=== PATIENT | female | born 1970 | race Caucasian/White ===

== ENCOUNTER 2016-09-17 14:45 | Outpatient (CLI) | payer OTHER ==
[~2016-09-17 14:45] MED LIST: /ADVA50050 INH; /ESOM40CA PO; /VERA12TA PO; ADVA230A INH; ALBU17IN INH; AMIT8CAP PO; BREO1INH IN; CEFD1CAP8 PO; DUONSOL INH; ESTR625TA PO; GABA-282 PO; IPRASOL4 INH; LEVO500T PO; LISI-538 PO; LISI10TA4 PO; LORA10TA2 PO; MELO15TA4 PO; MIRA255PW PO; MONT10TA2 PO; MYLASSUD PO; NEUR300C PO; NEXI20CA PO; OMEP40CA2 PO; PRED10TA2 PO; PRED1TAB32 PO; PRED20TAB PO; PRED5TA PO; PRIN10TA PO; QVAR0.07 IN; SING4GRA PO; SOMA350T PO; SPIR1CAP INH; TIOT18INH INH; TIZA2CAP3 PO; TYLE325T5 PO; VENTAER INH; VERA1TAB10 PO; asmanex INH; bacid PO; levaquin; levaquin PO; prednisone; prednisone PO; singulair; singulair PO
[2016-09-17] MEDS ORDERED: methylPREDNISolone 1,000 MG, VIAL MATE ADAPTER 1 EACH in D5W 250 ML IV ONE (15:00)
[2016-09-17] MEDS ORDERED: INCR1INH IN (16:07)
[2016-09-17] MEDS ORDERED: METF500T13 PO (16:07)
[2016-11-05] MEDS ORDERED: VERA120C3 PO (09:42)
== END 2016-09-17 16:30 | disposition home or self-care (01) ==
LOC: M INFU 14:45
PROVIDERS: ATTEND Psychiatry & Neurology Neurology
DX: G35 Multiple sclerosis (principal); Z88.8 Allergy status to other drugs, medicaments and biological substances; Z88.5 Allergy status to narcotic agent; Z79.899 Other long term (current) drug therapy

== ENCOUNTER 2016-09-18 07:53 | Outpatient (CLI) | payer OTHER ==
[~2016-09-18] VITALS: Ht 162.6 cm; Wt 108.9 kg
[~2016-09-18 07:53] MED LIST changes: +INCR1INH IN; +METF500T13 PO
[2016-09-18] MEDS ORDERED: methylPREDNISolone 1,000 MG, VIAL MATE ADAPTER 1 EACH in D5W 250 ML IV ONE (08:00)
[2016-11-05] MEDS ORDERED: VERA120C3 PO (09:42)
== END 2016-09-18 09:15 | disposition home or self-care (01) ==
LOC: M INFU 07:53
PROVIDERS: ATTEND Psychiatry & Neurology Neurology
DX: G35 Multiple sclerosis (principal); Z88.8 Allergy status to other drugs, medicaments and biological substances; Z88.5 Allergy status to narcotic agent; Z79.899 Other long term (current) drug therapy

== ENCOUNTER 2016-09-19 07:49 | Outpatient (CLI) | payer OTHER ==
[~2016-09-19] VITALS: Ht 162.6 cm; Wt 108.9 kg
[2016-09-19] MEDS ORDERED: methylPREDNISolone 1,000 MG, VIAL MATE ADAPTER 1 EACH in D5W 250 ML IV ONE (08:00)
[2016-11-05] MEDS ORDERED: VERA120C3 PO (09:42)
== END 2016-09-19 09:20 ==
LOC: M INFU 07:49
PROVIDERS: ATTEND Psychiatry & Neurology Neurology
DX: G35 Multiple sclerosis (principal); Z88.8 Allergy status to other drugs, medicaments and biological substances; Z88.5 Allergy status to narcotic agent; Z79.84 Long term (current) use of oral hypoglycemic drugs; Z79.899 Other long term (current) drug therapy

== ENCOUNTER 2016-11-09 11:40 | Day surgery (SDC) | payer OTHER ==
[~2016-11-09] VITALS: Ht 162.6 cm; Wt 107.0 kg
[~2016-11-09 11:40] MED LIST changes: +VERA120C3 PO
[2016-11-09] MEDS ORDERED: LR 1,000 ML IV SCH (12:00)
[2016-11-09] MEDS ORDERED: PROPOFOL 200 MG/20 ML VIAL As Ordered ONE (13:52)
[2016-11-09] MEDS ORDERED: KETOROLAC 60 MG/2 ML VIAL (J1885) As Ordered ONE (13:52)
[2016-11-09] MEDS ORDERED: fentaNYL 100 MCG/2 ML INJECTION (J3010) As Ordered ONE (13:52)
[2016-11-09] MEDS ORDERED: LIDOCAINE 2% INJ 100 MG/5 ML SDV (FOR ANES.) As Ordered ONE (13:52)
[2016-11-09] MEDS ORDERED: dexameTHASONE 4 MG/ML 1ML VIAL (J1100) As Ordered ONE (13:52)
[2016-11-09] MEDS ORDERED: ONDANSETRON 4MG/2ML VIAL (J2405) As Ordered ONE (13:52)
[2016-11-09] MEDS ORDERED: MIDAZOLAM INJ 2 MG/2 ML VIAL (J2250) As Ordered ONE (13:53)
[2016-11-09] MEDS ORDERED: LIDOCAINE 1% SDV INJ 30 ML VIAL As Ordered ONE (14:33)
[2016-11-09] MEDS ORDERED: HEPARIN SOD (PORCINE) 5000 UNITS/ML VIAL As Ordered ONE (14:33)
[2016-11-09] MEDS ORDERED: PHENYLephrine HCL 500 MCG/5 ML (100MCG/ML) SYRINGE (J2370) As Ordered ONE (15:24)
[2016-11-09] MEDS ORDERED: ePHEDrine SULFATE 25 MG/5 ML(5MG/ML) SYRINGE As Ordered ONE (15:24)
[2016-11-09 15:55] VITALS: BP 133/84
--- NOTE | 2016-11-10 06:35 | REP ---
Partial chest x-ray: Two views. History: Need for infusion. 2 seconds of fluoroscopy time is reported. Findings: A sequence of two last image hold fluoroscopic spot radiographs of the chest document catheter position. Signed by Marcelo Guillaume MD 11/10/2016 08:02 A
--- NOTE | 2016-11-10 09:41 | RO ---
DATE OF PROCEDURE: 11/09/2016 PREOPERATIVE DIAGNOSIS: Need for venous access. POSTOPERATIVE DIAGNOSIS: Need for venous access. PROCEDURE: Placement of a right internal jugular vein Bard port Aysady-J-Lcfj. Product code number is [id number] and the lot number is [id number]. SURGEON: Dr. Nick Gold GROUNDS FOREMAN: ANESTHESIA: Monitored anesthesia care with local of 1% Xylocaine with epinephrine. INDICATIONS FOR PROCEDURE: The patient is a 46-year-old woman with a diagnosis of multiple sclerosis who requires a venous access device to allow injections of medication. She has poor peripheral veins. OPERATIVE PROCEDURE: The patient was placed supine on the operating table. The patient's neck and upper chest were prepped and draped in a sterile fashion. She received sedation from anesthesia. The [employer] ultrasound was draped and used to inspect the right side of the neck. The carotid artery and internal jugular vein were both clearly identified. The patient was tilted to a Trendelenburg position to enhance the venous filling. Local anesthesia was infiltrated over the internal jugular vein. An 18 gauge needle was inserted under continuous ultrasound monitoring. Then a small incision was made at the wire insertion site and a peel-away sheath introducer was placed. The catheter was then inserted to approximately 30 cm. The catheter was slowly pulled back to approximately 20 cm. Blood aspirated easily and the catheter was then flushed with heparinized saline. The patient was returned to a flat position. The location of the catheter was inspected using fluoroscopy and the catheter was pulled back to approximately 13 cm at the skin surface with good positioning of the tip of the catheter just above the right atrium. Additional local anesthesia was infiltrated in the infraclavicular fossa. A short transverse incision was made and a subcutaneous pocket was created to receive the port. The catheter was tunneled down to the port site. The catheter was cut to length and attached to the port with the locking ring. The port was placed into the subcutaneous pocket and two sutures of #3-0 Vicryl were placed to suture this to the underlying tissues. The incisions were closed with buried Vicryl sutures. The port was accessed a final time and flushed with 100 units/mL heparin solution. Steri-Strips and small OpSite dressings were applied. The patient tolerated the procedure well. She was allowed to awaken and was transported to advanced recovery in stable condition. [facility]ITALBob
== END 2016-11-09 16:15 | disposition home or self-care (01) ==
LOC: M SDC 11:40
PROVIDERS: ATTEND Surgery
DX: G35 Multiple sclerosis (principal); I10 Essential (primary) hypertension; J45.909 Unspecified asthma, uncomplicated; J44.9 Chronic obstructive pulmonary disease, unspecified; E28.2 Polycystic ovarian syndrome; K59.00 Constipation, unspecified; E11.9 Type 2 diabetes mellitus without complications; K21.9 Gastro-esophageal reflux disease without esophagitis; G47.30 Sleep apnea, unspecified; Z88.1 Allergy status to other antibiotic agents; Z88.5 Allergy status to narcotic agent; Z79.899 Other long term (current) drug therapy; Z79.84 Long term (current) use of oral hypoglycemic drugs; Z90.710 Acquired absence of both cervix and uterus
CPT/HCPCS: 36561; 76000; C1788

== ENCOUNTER 2016-11-15 12:29 | Outpatient (CLI) | payer OTHER ==
[~2016-11-15] VITALS: Ht 162.6 cm; Wt 108.9 kg
[~2016-11-15 12:29] MED LIST changes: +SODIUM CHLORIDE 0.9% INJ 10 ML SYR IV SCH
[2016-11-15] MEDS ORDERED: methylPREDNISolone 1,000 MG, VIAL MATE ADAPTER 1 EACH in D5W 250 ML IV ONE (13:00)
== END 2016-11-15 15:05 | disposition home or self-care (01) ==
LOC: M INFU 12:29
PROVIDERS: ATTEND Psychiatry & Neurology Neurology
DX: G35 Multiple sclerosis (principal); Z88.8 Allergy status to other drugs, medicaments and biological substances; Z88.5 Allergy status to narcotic agent; Z79.899 Other long term (current) drug therapy
CPT/HCPCS: 96365; J2930

== ENCOUNTER 2016-11-29 07:51 | Outpatient (CLI) | payer OTHER ==
[~2016-11-29] VITALS: Ht 162.6 cm; Wt 108.9 kg
[~2016-11-29 07:51] MED LIST changes: -SODIUM CHLORIDE 0.9% INJ 10 ML SYR IV SCH
[2016-11-29] MEDS ORDERED: methylPREDNISolone 1,000 MG, VIAL MATE ADAPTER 1 EACH in D5W 250 ML IV ONE (08:15)
[2016-11-29] MEDS ORDERED: SODIUM CHLORIDE 0.9% INJ 10 ML SYR IV SCH (09:00)
== END 2016-11-29 09:55 | disposition home or self-care (01) ==
LOC: M INFU 07:51
PROVIDERS: ATTEND Psychiatry & Neurology Neurology
DX: G35 Multiple sclerosis (principal); I10 Essential (primary) hypertension; E78.00 Pure hypercholesterolemia, unspecified; K21.9 Gastro-esophageal reflux disease without esophagitis; Z79.84 Long term (current) use of oral hypoglycemic drugs; Z79.899 Other long term (current) drug therapy; Z88.5 Allergy status to narcotic agent
CPT/HCPCS: 96365; J2930

== ENCOUNTER 2016-12-13 14:10 | Outpatient (CLI) | payer OTHER ==
[~2016-12-13] VITALS: Ht 162.6 cm; Wt 108.9 kg
[~2016-12-13 14:10] MED LIST changes: +SODIUM CHLORIDE 0.9% INJ 10 ML SYR IV SCH
[2016-12-13] MEDS ORDERED: methylPREDNISolone 1,000 MG, VIAL MATE ADAPTER 1 EACH in D5W 250 ML IV ONE (15:00)
== END 2016-12-13 16:20 | disposition home or self-care (01) ==
LOC: M INFU 14:10
PROVIDERS: ATTEND Psychiatry & Neurology Neurology
DX: G35 Multiple sclerosis (principal); Z88.8 Allergy status to other drugs, medicaments and biological substances; Z88.5 Allergy status to narcotic agent; Z79.899 Other long term (current) drug therapy
CPT/HCPCS: 96365; J2930

== ENCOUNTER 2016-12-27 13:17 | Outpatient (CLI) | payer OTHER ==
[2016-12-27] MEDS ORDERED: methylPREDNISolone 1,000 MG, VIAL MATE ADAPTER 1 EACH in D5W 250 ML IV ONE (13:45)
== END 2016-12-27 15:20 | disposition home or self-care (01) ==
LOC: M INFU 13:17
PROVIDERS: ATTEND Psychiatry & Neurology Neurology
DX: G35 Multiple sclerosis (principal); I10 Essential (primary) hypertension; E78.00 Pure hypercholesterolemia, unspecified; E11.9 Type 2 diabetes mellitus without complications; K21.9 Gastro-esophageal reflux disease without esophagitis; J45.909 Unspecified asthma, uncomplicated; J44.9 Chronic obstructive pulmonary disease, unspecified; Z79.84 Long term (current) use of oral hypoglycemic drugs; Z79.899 Other long term (current) drug therapy; Z88.5 Allergy status to narcotic agent; Z88.8 Allergy status to other drugs, medicaments and biological substances
CPT/HCPCS: 96365; J2930

== ENCOUNTER 2017-01-17 12:08 | Outpatient (CLI) | payer MEDICAID, OTHER ==
[~2017-01-17] VITALS: Ht 162.6 cm; Wt 108.9 kg
[2017-01-17] MEDS ORDERED: methylPREDNISolone 1,000 MG, VIAL MATE ADAPTER 1 EACH in D5W 250 ML IV ONE (12:30)
== END 2017-01-17 14:15 | disposition home or self-care (01) ==
LOC: M INFU 12:08
PROVIDERS: ATTEND Psychiatry & Neurology Neurology
DX: G35 Multiple sclerosis (principal); Z88.8 Allergy status to other drugs, medicaments and biological substances; Z88.5 Allergy status to narcotic agent; Z79.899 Other long term (current) drug therapy
CPT/HCPCS: 96365; J2930

== ENCOUNTER 2017-01-31 07:33 | Outpatient (CLI) | payer MEDICAID ==
[~2017-01-31] VITALS: Ht 162.6 cm; Wt 108.9 kg
[~2017-01-31 07:33] MED LIST changes: -SODIUM CHLORIDE 0.9% INJ 10 ML SYR IV SCH
[2017-01-31] MEDS ORDERED: methylPREDNISolone 1,000 MG, VIAL MATE ADAPTER 1 EACH in D5W 250 ML IV ONE (08:00)
[2017-01-31] MEDS ORDERED: SODIUM CHLORIDE 0.9% INJ 10 ML SYR IV SCH (09:00)
== END 2017-01-31 09:25 | disposition home or self-care (01) ==
LOC: M INFU 07:33
PROVIDERS: ATTEND Psychiatry & Neurology Neurology
DX: G35 Multiple sclerosis (principal)
CPT/HCPCS: 96365; J2930

== ENCOUNTER 2017-02-14 09:13 | Outpatient (CLI) | payer OTHER, SELFPAY ==
[~2017-02-14] VITALS: Ht 162.6 cm; Wt 108.9 kg
[~2017-02-14 09:13] MED LIST changes: +SODIUM CHLORIDE 0.9% INJ 10 ML SYR IV SCH
[2017-02-14] MEDS ORDERED: methylPREDNISolone 1,000 MG, VIAL MATE ADAPTER 1 EACH in D5W 250 ML IV ONE (10:00)
== END 2017-02-14 10:45 | disposition home or self-care (01) ==
LOC: M INFU 09:13
PROVIDERS: ATTEND Psychiatry & Neurology Neurology
DX: G35 Multiple sclerosis (principal); Z88.8 Allergy status to other drugs, medicaments and biological substances; Z88.5 Allergy status to narcotic agent; Z79.84 Long term (current) use of oral hypoglycemic drugs; Z79.899 Other long term (current) drug therapy
CPT/HCPCS: 96365; J2930

== ENCOUNTER 2017-03-04 13:23 | Outpatient (CLI) | payer OTHER ==
[2017-03-04] MEDS: methylPREDNISolone 1,000 MG, VIAL MATE ADAPTER 1 EACH in D5W 250 ML IV (13:39)
[2017-03-04] MEDS: SODIUM CHLORIDE 0.9% INJ 10 ML SYR IV (14:45)
== END 2017-03-04 14:45 | disposition home or self-care (01) ==
LOC: M INFU 13:23
DX: G35 Multiple sclerosis (principal); Z88.5 Allergy status to narcotic agent; Z88.8 Allergy status to other drugs, medicaments and biological substances; Z79.899 Other long term (current) drug therapy
CPT/HCPCS: 96365

== ENCOUNTER 2017-03-25 06:49 | Outpatient (CLI) | payer OTHER ==
[2017-03-25] MEDS: methylPREDNISolone 1,000 MG, VIAL MATE ADAPTER 1 EACH in D5W 250 ML IV (07:11)
[2017-03-25] MEDS: SODIUM CHLORIDE 0.9% INJ 10 ML SYR IV (08:18)
== END 2017-03-25 08:30 | disposition home or self-care (01) ==
LOC: M INFU 06:49
DX: G35 Multiple sclerosis (principal); Z88.8 Allergy status to other drugs, medicaments and biological substances; Z88.5 Allergy status to narcotic agent; Z79.899 Other long term (current) drug therapy
CPT/HCPCS: 96365

== ENCOUNTER 2017-03-26 09:07 | Outpatient (CLI) | payer OTHER ==
[2017-03-26] MEDS: methylPREDNISolone 1,000 MG, VIAL MATE ADAPTER 1 EACH in D5W 250 ML IV (09:42)
[2017-03-26] MEDS: SODIUM CHLORIDE 0.9% INJ 10 ML SYR IV (11:03)
== END 2017-03-26 11:08 | disposition home or self-care (01) ==
LOC: M INFU 09:07 → M PED 09:13 → M INFU 11:08
DX: G35 Multiple sclerosis (principal); Z88.5 Allergy status to narcotic agent; Z88.8 Allergy status to other drugs, medicaments and biological substances; Z79.899 Other long term (current) drug therapy
CPT/HCPCS: 96365

== ENCOUNTER 2017-03-27 08:06 | Outpatient (CLI) | payer OTHER ==
[2017-03-27] MEDS: methylPREDNISolone 1,000 MG, VIAL MATE ADAPTER 1 EACH in D5W 250 ML IV (08:55)
[2017-03-27] MEDS ORDERED: SODIUM CHLORIDE 0.9% INJ 10 ML SYR IV (09:15)
== END 2017-03-27 10:05 ==
LOC: M INFU 08:06 → M MS4PR 08:10 → M INFU 10:05
DX: G35 Multiple sclerosis (principal); Z79.899 Other long term (current) drug therapy; Z88.8 Allergy status to other drugs, medicaments and biological substances; Z88.5 Allergy status to narcotic agent
CPT/HCPCS: 96365

== ENCOUNTER 2017-04-25 10:24 | Outpatient (CLI) | payer OTHER ==
[2017-04-25] MEDS: methylPREDNISolone 1,000 MG, VIAL MATE ADAPTER 1 EACH in D5W 250 ML IV (10:50)
[2017-04-25] MEDS: SODIUM CHLORIDE 0.9% INJ 10 ML SYR IV (11:48)
== END 2017-04-25 12:15 | disposition home or self-care (01) ==
LOC: M INFU 10:24
DX: G35 Multiple sclerosis (principal); Z79.899 Other long term (current) drug therapy; Z88.8 Allergy status to other drugs, medicaments and biological substances; Z88.5 Allergy status to narcotic agent
CPT/HCPCS: 96365

== ENCOUNTER 2017-05-09 11:51 | Outpatient (CLI) | payer OTHER ==
[2017-05-09] MEDS: SODIUM CHLORIDE 0.9% INJ 10 ML SYR IV (12:04)
[2017-05-09] MEDS: methylPREDNISolone 1,000 MG, VIAL MATE ADAPTER 1 EACH in D5W 250 ML IV (12:04)
== END 2017-05-09 12:35 | disposition home or self-care (01) ==
LOC: M INFU 11:51
DX: G35 Multiple sclerosis (principal); I10 Essential (primary) hypertension; E78.00 Pure hypercholesterolemia, unspecified; J44.9 Chronic obstructive pulmonary disease, unspecified; K21.9 Gastro-esophageal reflux disease without esophagitis; E11.9 Type 2 diabetes mellitus without complications; Z79.899 Other long term (current) drug therapy; Z88.8 Allergy status to other drugs, medicaments and biological substances
CPT/HCPCS: J2930

== ENCOUNTER 2017-05-09 17:27 | Emergency (ER) | payer OTHER ==
[2017-05-09] MEDS: ASPIRIN 81 MG CHEW TABLET PO (18:39)
[2017-05-09] MEDS: ASPIRIN 325 MG TAB PO (19:45)
[2017-05-09 19:53] LABS: BASO % 0.2 % (0.0-1.0); HEMATOCRIT 35.5 % (36.0-47.0); HEMOGLOBIN 11.4 g/dl (12.0-16.0); IMMATURE GRANULOCYTE % 0.3 % (0-3.0); LYMPH # 0.6 10^3/uL (1.5-4.5); LYMPH % 10.2 % (24.0-44.0); MEAN CORPUSCULAR HEMOGLOBIN 27.5 pg (27.0-33.0); MEAN CORPUSCULAR HGB CONC 32.1 g/dl (32.0-36.5); MEAN CORPUSCULAR VOLUME 85.5 fl (80.0-96.0); MONO % 0.5 % (0.0-5.0); NEUTROPHILS # 5.5 10^3/uL (1.8-7.7); NEUTROPHILS % 88.8 % (36.0-66.0); PLATELET COUNT, AUTOMATED 238 10^3/uL (150-450); RED BLOOD COUNT 4.15 10^6/uL (4.00-5.40); RED CELL DISTRIBUTION WIDTH 13.9 % (11.5-14.5); WHITE BLOOD COUNT 6.2 10^3/uL (4.0-10.0)
[2017-05-09] MEDS: KETOROLAC 30 MG/ML VIAL (J1885) IV (19:59)
[2017-05-09] MEDS: ALBUTEROL SULFATE 2.5 MG/0.5 ML INH NEB SOLN NEB (20:10)
[2017-05-09 20:24] LABS: ALBUMIN 3.7 GM/DL (3.2-5.2); ALBUMIN/GLOBULIN RATIO 1.09 (1.00-1.93); ALKALINE PHOSPHATASE 102 U/L (45-117); ALT/SGPT 25 U/L (12-78); ANION GAP 8 MEQ/L (8-16); AST/SGOT 15 U/L (7-37); BILIRUBIN,DIRECT < 0.1 MG/DL (0.0-0.2); BILIRUBIN,TOTAL 0.2 MG/DL (0.2-1.0); BLOOD UREA NITROGEN 8 MG/DL (7-18); CALCIUM LEVEL 8.7 MG/DL (8.5-10.1); CARBON DIOXIDE LEVEL 25 MEQ/L (21-32); CHLORIDE LEVEL 108 MEQ/L (98-107); CPK CREATINE PHOSPHOKINASE 78 U/L (26-192); CREATININE FOR GFR 1.03 MG/DL (0.55-1.30); GLOMERULAR FILTRATION RATE > 60.0 (>58); GLUCOSE, FASTING 220 MG/DL (70-100); LIPASE 239 U/L (73-393); POTASSIUM SERUM 4.6 MEQ/L (3.5-5.1); SODIUM LEVEL 141 MEQ/L (136-145); TOTAL PROTEIN 7.1 GM/DL (6.4-8.2); TROPONIN I < 0.02 NG/ML (< 0.10)
[2017-05-09 20:25] LABS: MB/CK RELATIVE INDEX 1.28 (< OR =4); NT-PRO BNP 22 PG/ML (<125)
[2017-05-09] MEDS ORDERED: ISOVUE-370 76% 100ML VIAL (Q9967) As Ordered (22:24)
[2017-05-09 22:45] LABS: CPK CREATINE PHOSPHOKINASE 71 U/L (26-192); TROPONIN I < 0.02 NG/ML (< 0.10)
== END 2017-05-09 23:53 | disposition home or self-care (01) ==
LOC: M ED 17:27
DX: J44.1 Chronic obstructive pulmonary disease with (acute) exacerbation (principal); R07.89 Other chest pain; E11.9 Type 2 diabetes mellitus without complications; I10 Essential (primary) hypertension; E78.5 Hyperlipidemia, unspecified; G35 Multiple sclerosis; K21.9 Gastro-esophageal reflux disease without esophagitis; J44.9 Chronic obstructive pulmonary disease, unspecified; J45.909 Unspecified asthma, uncomplicated; Z79.899 Other long term (current) drug therapy; Z88.1 Allergy status to other antibiotic agents; Z88.5 Allergy status to narcotic agent; Z88.8 Allergy status to other drugs, medicaments and biological substances
CPT/HCPCS: Q9967

== ENCOUNTER 2017-05-23 16:36 | Outpatient (CLI) | payer OTHER ==
[2017-05-23] MEDS: methylPREDNISolone 1,000 MG, VIAL MATE ADAPTER 1 EACH in D5W 250 ML IV (17:00)
[2017-05-23] MEDS: SODIUM CHLORIDE 0.9% INJ 10 ML SYR IV (17:58)
== END 2017-05-23 18:15 | disposition home or self-care (01) ==
LOC: M INFU 16:36
DX: G35 Multiple sclerosis (principal); I10 Essential (primary) hypertension; E78.00 Pure hypercholesterolemia, unspecified; J45.909 Unspecified asthma, uncomplicated; K21.9 Gastro-esophageal reflux disease without esophagitis; E11.9 Type 2 diabetes mellitus without complications; Z88.8 Allergy status to other drugs, medicaments and biological substances; Z79.84 Long term (current) use of oral hypoglycemic drugs; Z79.899 Other long term (current) drug therapy
CPT/HCPCS: J2930

== ENCOUNTER 2017-06-06 11:02 | Outpatient (CLI) | payer OTHER ==
[2017-06-06] MEDS ORDERED: methylPREDNISolone 1,000 MG, VIAL MATE ADAPTER 1 EACH in D5W 250 ML IV (11:15)
[2017-06-06] MEDS: methylPREDNISolone 500 MG, VIAL MATE ADAPTER 1 EACH in D5W 250 ML IV (12:01)
[2017-06-06] MEDS: SODIUM CHLORIDE 0.9% INJ 10 ML SYR IV (13:03)
== END 2017-06-06 13:15 | disposition home or self-care (01) ==
LOC: M INFU 11:02
DX: G35 Multiple sclerosis (principal); E11.9 Type 2 diabetes mellitus without complications; I10 Essential (primary) hypertension; E78.00 Pure hypercholesterolemia, unspecified; K21.9 Gastro-esophageal reflux disease without esophagitis; J45.909 Unspecified asthma, uncomplicated; Z79.84 Long term (current) use of oral hypoglycemic drugs; Z79.899 Other long term (current) drug therapy; Z88.8 Allergy status to other drugs, medicaments and biological substances
CPT/HCPCS: J2930

== ENCOUNTER 2017-06-23 07:40 | Outpatient (CLI) | payer OTHER ==
[2017-06-23] MEDS: methylPREDNISolone 500 MG, VIAL MATE ADAPTER 1 EACH in D5W 250 ML IV (08:21)
[2017-06-23] MEDS: SODIUM CHLORIDE 0.9% INJ 10 ML SYR IV (08:22)
== END 2017-06-23 09:40 | disposition home or self-care (01) ==
LOC: M INFU 07:40
DX: G35 Multiple sclerosis (principal); E11.9 Type 2 diabetes mellitus without complications; I10 Essential (primary) hypertension; E78.00 Pure hypercholesterolemia, unspecified; J45.909 Unspecified asthma, uncomplicated; K21.9 Gastro-esophageal reflux disease without esophagitis; Z79.84 Long term (current) use of oral hypoglycemic drugs; Z79.899 Other long term (current) drug therapy; Z88.8 Allergy status to other drugs, medicaments and biological substances
CPT/HCPCS: J2930

== ENCOUNTER 2017-07-07 13:04 | Outpatient (CLI) | payer OTHER ==
[2017-07-07] MEDS: methylPREDNISolone 500 MG, VIAL MATE ADAPTER 1 EACH in D5W 250 ML IV (13:37)
[2017-07-07] MEDS: SODIUM CHLORIDE 0.9% INJ 10 ML SYR IV (14:41)
== END 2017-07-07 14:50 | disposition home or self-care (01) ==
LOC: M INFU 13:04
DX: G35 Multiple sclerosis (principal); I10 Essential (primary) hypertension; E78.00 Pure hypercholesterolemia, unspecified; J44.9 Chronic obstructive pulmonary disease, unspecified; K21.9 Gastro-esophageal reflux disease without esophagitis; Z79.4 Long term (current) use of insulin; Z79.899 Other long term (current) drug therapy; Z88.5 Allergy status to narcotic agent; Z88.8 Allergy status to other drugs, medicaments and biological substances
CPT/HCPCS: J2930

== ENCOUNTER 2017-08-25 16:23 | Emergency (ER) | payer OTHER ==
[2017-08-25] MEDS: SODIUM CHLORIDE 0.9% INJ 10 ML SYR IV ×2 (18:00)
[2017-08-25] MEDS ORDERED: SODIUM CHLORIDE 0.9% INJ 10 ML SYR IV ×2 (18:00)
[2017-08-25] MEDS: NS 1,000 ML IV ×2 (19:02)
[2017-08-25] MEDS: methylPREDNISolone INJ 125 MG/2 ML VIAL (J2930) IV ×2 (19:04)
[2017-08-25 19:56] LABS: BASO % 0.1 % (0.0-1.0); HEMATOCRIT 36.9 % (36.0-47.0); HEMOGLOBIN 11.8 g/dl (12.0-15.5); IMMATURE GRANULOCYTE % 0.3 % (0-3.0); LYMPH # 0.8 10^3/uL (1.5-4.5); LYMPH % 9.5 % (24.0-44.0); MEAN CORPUSCULAR VOLUME 84.4 fl (80.0-96.0); MONO % 0.5 % (0.0-5.0); NEUTROPHILS # 7.1 10^3/uL (1.8-7.7); NEUTROPHILS % 89.6 % (36.0-66.0); PLATELET COUNT, AUTOMATED 296 10^3/uL (150-450); RED BLOOD COUNT 4.37 10^6/uL (4.00-5.40); RED CELL DISTRIBUTION WIDTH 14.3 % (11.5-14.5); WHITE BLOOD COUNT 7.9 10^3/uL (4.0-10.0)
[2017-08-25 19:58] LABS: KETONE, URINE AUTO RFX TRACE mg/dL (NEGATIVE); LEUKOCYTE ESTERASE UR AUTO RFX NEGATIVE (NEGATIVE); NITRITE, URINE AUTO RFX NEGATIVE (NEGATIVE); RBC, URINE AUTO RFX 1 /HPF (0-3); SPECIFIC GRAVITY UR AUTO RFX 1.024 (1.002-1.035); SQUAM EPITHELIAL CELL UR AURFX 0 /HPF (0-6); WBC, URINE AUTO RFX 0 /HPF (0-3)
[2017-08-25 20:13] LABS: ANION GAP 10 MEQ/L (8-16); BLOOD UREA NITROGEN 15 MG/DL (7-18); CALCIUM LEVEL 8.7 MG/DL (8.5-10.1); CARBON DIOXIDE LEVEL 25 MEQ/L (21-32); CHLORIDE LEVEL 107 MEQ/L (98-107); CREATININE FOR GFR 1.07 MG/DL (0.55-1.30); GLOMERULAR FILTRATION RATE 58.5 (>58); GLUCOSE, FASTING 194 MG/DL (70-100); POTASSIUM SERUM 4.7 MEQ/L (3.5-5.1); SODIUM LEVEL 142 MEQ/L (136-145); THYROID STIMULATING HORMONE 0.656 uIU/ML (0.358-3.740)
== END 2017-08-25 22:28 | disposition home or self-care (01) ==
LOC: M ED 16:23
DX: G35 Multiple sclerosis (principal); E11.9 Type 2 diabetes mellitus without complications; I10 Essential (primary) hypertension; J45.909 Unspecified asthma, uncomplicated; E28.2 Polycystic ovarian syndrome; K21.9 Gastro-esophageal reflux disease without esophagitis; Z79.84 Long term (current) use of oral hypoglycemic drugs; Z79.899 Other long term (current) drug therapy; Z88.5 Allergy status to narcotic agent; Z88.8 Allergy status to other drugs, medicaments and biological substances; Z86.69 Personal history of other diseases of the nervous system and sense organs; Z98.890 Other specified postprocedural states
CPT/HCPCS: J2930

== ENCOUNTER 2017-09-14 12:12 | Outpatient (CLI) | payer OTHER ==
[2017-09-14] MEDS: methylPREDNISolone 1,000 MG, VIAL MATE ADAPTER 1 EACH in D5W 250 ML IV (12:40)
[2017-09-14] MEDS: SODIUM CHLORIDE 0.9% INJ 10 ML SYR IV (13:45)
== END 2017-09-14 13:45 | disposition home or self-care (01) ==
LOC: M INFU 12:12
DX: G35 Multiple sclerosis (principal); Z88.8 Allergy status to other drugs, medicaments and biological substances; Z88.5 Allergy status to narcotic agent; Z79.899 Other long term (current) drug therapy; Z79.84 Long term (current) use of oral hypoglycemic drugs
CPT/HCPCS: J2930

== ENCOUNTER 2017-10-12 12:28 | Outpatient (CLI) | payer OTHER ==
[2017-10-12] MEDS: methylPREDNISolone 1,000 MG, VIAL MATE ADAPTER 1 EACH in D5W 250 ML IV (12:43)
[2017-10-12] MEDS: SODIUM CHLORIDE 0.9% INJ 10 ML SYR IV (12:44)
== END 2017-10-12 14:15 | disposition home or self-care (01) ==
LOC: M INFU 12:28
DX: G35 Multiple sclerosis (principal); Z88.8 Allergy status to other drugs, medicaments and biological substances; Z88.5 Allergy status to narcotic agent; Z79.899 Other long term (current) drug therapy; Z79.84 Long term (current) use of oral hypoglycemic drugs
CPT/HCPCS: J2930

== ENCOUNTER 2017-10-26 16:35 | Emergency (ER) | payer OTHER ==
[2017-10-26 21:10] LABS: BASO % 0.2 % (0.0-1.0); HEMATOCRIT 35.1 % (36.0-47.0); HEMOGLOBIN 11.3 g/dl (12.0-15.5); IMMATURE GRANULOCYTE % 0.6 % (0-3.0); LYMPH # 0.8 10^3/uL (1.5-4.5); LYMPH % 8.4 % (24.0-44.0); MEAN CORPUSCULAR HEMOGLOBIN 27.6 pg (27.0-33.0); MEAN CORPUSCULAR HGB CONC 32.2 g/dl (32.0-36.5); MEAN CORPUSCULAR VOLUME 85.6 fl (80.0-96.0); MONO # 0.1 10^3/uL (0.0-0.8); MONO % 1.4 % (0.0-5.0); NEUTROPHILS # 8.6 10^3/uL (1.8-7.7); NEUTROPHILS % 89.4 % (36.0-66.0); PLATELET COUNT, AUTOMATED 278 10^3/uL (150-450); RED CELL DISTRIBUTION WIDTH 15.4 % (11.5-14.5); WHITE BLOOD COUNT 9.6 10^3/uL (4.0-10.0)
[2017-10-26 21:22] LABS: BEDSIDE GLUCOSE 151 MG/DL (70-105)
[2017-10-26 21:23] LABS: INR 1.16
[2017-10-26 21:24] LABS: PARTIAL THROMBOPLASTIN TIME 27.1 SECONDS (25.4-37.6)
[2017-10-26 21:31] LABS: ALBUMIN 3.6 GM/DL (3.2-5.2); ALT/SGPT 22 U/L (12-78); ANION GAP 10 MEQ/L (8-16); AST/SGOT 6 U/L (7-37); BILIRUBIN,DIRECT < 0.1 MG/DL (0.0-0.2); BILIRUBIN,TOTAL 0.2 MG/DL (0.2-1.0); BLOOD UREA NITROGEN 15 MG/DL (7-18); CALCIUM LEVEL 9.1 MG/DL (8.5-10.1); CARBON DIOXIDE LEVEL 24 MEQ/L (21-32); CHLORIDE LEVEL 108 MEQ/L (98-107); CPK CREATINE PHOSPHOKINASE 36 U/L (26-192); CREATININE FOR GFR 0.94 MG/DL (0.55-1.30); GLOMERULAR FILTRATION RATE > 60.0 (>58); GLUCOSE, FASTING 150 MG/DL (70-100); PHOSPHORUS LEVEL 2.8 MG/DL (2.5-4.9); POTASSIUM SERUM 4.3 MEQ/L (3.5-5.1); SODIUM LEVEL 142 MEQ/L (136-145); TOTAL PROTEIN 7.2 GM/DL (6.4-8.2); TROPONIN I < 0.02 NG/ML (< 0.10)
[2017-10-26 21:37] LABS: ALKALINE PHOSPHATASE 107 U/L (45-117); CK-MB VALUE MASS < 1.0 NG/ML (<3.6); MB/CK RELATIVE INDEX 2.77 (< OR =4); NT-PRO BNP 25 PG/ML (<125); THYROID STIMULATING HORMONE 0.343 uIU/ML (0.358-3.740)
[2017-10-26] MEDS ORDERED: methylPREDNISolone INJ 125 MG/2 ML VIAL (J2930) IV (22:00)
[2017-10-26] MEDS: methylPREDNISolone 1,000 MG, VIAL MATE ADAPTER 1 EACH in D5W 250 ML IV (22:22)
== END 2017-10-26 23:50 | disposition home or self-care (01) ==
LOC: M ED 16:35
DX: I26.99 Other pulmonary embolism without acute cor pulmonale (principal); R53.1 Weakness; J44.9 Chronic obstructive pulmonary disease, unspecified; E11.9 Type 2 diabetes mellitus without complications; I10 Essential (primary) hypertension; G35 Multiple sclerosis; K21.9 Gastro-esophageal reflux disease without esophagitis; G47.33 Obstructive sleep apnea (adult) (pediatric); E28.2 Polycystic ovarian syndrome; E78.9 Disorder of lipoprotein metabolism, unspecified; Z79.899 Other long term (current) drug therapy; Z79.84 Long term (current) use of oral hypoglycemic drugs; Z79.01 Long term (current) use of anticoagulants; Z88.5 Allergy status to narcotic agent; Z88.8 Allergy status to other drugs, medicaments and biological substances
CPT/HCPCS: J2930

== ENCOUNTER 2017-12-08 11:17 | Outpatient (CLI) | payer OTHER ==
[2017-12-08] MEDS: SODIUM CHLORIDE 0.9% INJ 10 ML SYR IV (09:00)
[2017-12-08] MEDS: methylPREDNISolone 1,000 MG, VIAL MATE ADAPTER 1 EACH in D5W 250 ML IV (12:30)
== END 2017-12-08 13:45 | disposition home or self-care (01) ==
LOC: M INFU 11:17
DX: G35 Multiple sclerosis (principal)
CPT/HCPCS: J2930

== ENCOUNTER 2017-12-22 12:42 | Outpatient (CLI) | payer OTHER ==
[2017-12-22] MEDS: methylPREDNISolone 1,000 MG, VIAL MATE ADAPTER 1 EACH in D5W 250 ML IV (13:05)
== END 2017-12-22 14:30 | disposition home or self-care (01) ==
LOC: M INFU 12:42
DX: G35 Multiple sclerosis (principal)
CPT/HCPCS: J2930

== ENCOUNTER 2017-12-28 16:03 | Emergency (ER) | payer OTHER ==
[2017-12-28] MEDS: ACETAMINOPHEN 325 MG TAB PO (19:30)
[2017-12-28] MEDS: predniSONE 20 MG TAB PO (19:30)
[2017-12-28] MEDS: NORCO 5/325MG TABLET (BULK FOR ED) PO (20:11)
== END 2017-12-28 20:21 | disposition home or self-care (01) ==
LOC: M ED 16:03
DX: M54.17 Radiculopathy, lumbosacral region (principal); G89.29 Other chronic pain; M54.5 Low back pain; E11.9 Type 2 diabetes mellitus without complications; I10 Essential (primary) hypertension; E78.5 Hyperlipidemia, unspecified; J44.9 Chronic obstructive pulmonary disease, unspecified; Z79.4 Long term (current) use of insulin; Z79.899 Other long term (current) drug therapy; Z88.5 Allergy status to narcotic agent; Z88.8 Allergy status to other drugs, medicaments and biological substances
CPT/HCPCS: 99283

== ENCOUNTER 2018-02-06 06:36 | Outpatient (CLI) | payer OTHER ==
[2018-02-06] MEDS: methylPREDNISolone 1,000 MG, VIAL MATE ADAPTER 1 EACH in D5W 250 ML IV (06:51)
[2018-02-06] MEDS: SODIUM CHLORIDE 0.9% INJ 10 ML SYR IV (07:55)
== END 2018-02-06 08:00 | disposition home or self-care (01) ==
LOC: M INFU 06:36
DX: G35 Multiple sclerosis (principal)
CPT/HCPCS: J2930

== ENCOUNTER 2018-02-20 07:36 | Outpatient (CLI) | payer OTHER ==
[~2018-02-20] VITALS: Ht 162.6 cm; Wt 110.0 kg
[~2018-02-20 07:36] MED LIST changes: +ATOR1TAB19 PO; -GABA-282 PO; +GABA-843 PO; +GLIP5TAB8 PO; +IPRA0.00 INH; -IPRASOL4 INH; +KETO10TAB PO; +LEVA1TAB2 PO; +LORA-243 PO; -LORA10TA2 PO; +MELO15TA28 PO; -MELO15TA4 PO; +METH50VL IV; +NORCOTAB PO; +NOVALOG; -QVAR0.07 IN; +QVAR40AE13 IN; -SODIUM CHLORIDE 0.9% INJ 10 ML SYR IV SCH; +TIZA2CAP PO; -TIZA2CAP3 PO; +XARE15TA PO
[2018-02-20 07:40] VITALS: BP 115/65
[2018-02-20] MEDS ORDERED: methylPREDNISolone 1,000 MG, VIAL MATE ADAPTER 1 EACH in D5W 250 ML IV ONE (08:00)
[2018-02-20] MEDS ORDERED: SODIUM CHLORIDE 0.9% INJ 10 ML SYR IV SCH (09:00)
[2018-02-20 09:10] VITALS: BP 127/63
== END 2018-02-20 09:10 | disposition home or self-care (01) ==
LOC: M INFU 07:36
PROVIDERS: ATTEND Psychiatry & Neurology Neurology
DX: G35 Multiple sclerosis (principal)
CPT/HCPCS: 96365; J2930

== ENCOUNTER 2018-04-05 08:34 | Outpatient (CLI) | payer OTHER ==
[~2018-04-05] VITALS: Ht 162.6 cm; Wt 110.0 kg
[2018-04-05 08:41] VITALS: BP 135/80
[2018-04-05] MEDS ORDERED: SODIUM CHLORIDE 0.9% INJ 10 ML SYR IV SCH (09:00)
[2018-04-05] MEDS ORDERED: methylPREDNISolone 1,000 MG, VIAL MATE ADAPTER 1 EACH in D5W 250 ML IV ONE (09:00)
[2018-04-05 10:09] VITALS: BP 146/81
== END 2018-04-05 10:15 | disposition home or self-care (01) ==
LOC: M INFU 08:34
PROVIDERS: ATTEND Psychiatry & Neurology Neurology
DX: G35 Multiple sclerosis (principal)
CPT/HCPCS: 96365; J2930

== ENCOUNTER 2018-06-28 12:09 | Outpatient (CLI) | payer OTHER ==
[~2018-06-28] VITALS: Ht 160 cm; Wt 115.0 kg
[~2018-06-28 12:09] MED LIST changes: -/ADVA50050 INH; -/ESOM40CA PO; +ADVA1AER2 INH; +HYDR-3715 PO; -MIRA255PW PO; +NEXI1CAP3 PO; -NORCOTAB PO; +OXYCOD/APAP; +POLY1POW4 PO; +SODIUM CHLORIDE 0.9% INJ 10 ML SYR IV SCH; +VERA120T4 PO; -VERA1TAB10 PO
[2018-06-28 12:30] VITALS: BP 125/59
[2018-06-28] MEDS ORDERED: methylPREDNISolone 1,000 MG, VIAL MATE ADAPTER 1 EACH in D5W 250 ML IV ONE (12:45)
[2018-06-28 14:00] VITALS: BP 119/58
== END 2018-06-28 14:00 | disposition home or self-care (01) ==
LOC: M INFU 12:09
PROVIDERS: ATTEND Psychiatry & Neurology Neurology
DX: G35 Multiple sclerosis (principal)
CPT/HCPCS: 96365; J2930

== ENCOUNTER 2018-08-23 12:47 | Outpatient (CLI) | payer OTHER ==
[~2018-08-23] VITALS: Ht 160 cm; Wt 115.0 kg
[2018-08-23 13:54] VITALS: BP 94/51
[2018-08-23] MEDS ORDERED: methylPREDNISolone 1,000 MG, VIAL MATE ADAPTER 1 EACH in D5W 250 ML IV ONE (14:00)
== END 2018-08-23 14:20 | disposition home or self-care (01) ==
LOC: M INFU 12:47
PROVIDERS: ATTEND Psychiatry & Neurology Neurology
DX: G35 Multiple sclerosis (principal)
CPT/HCPCS: 96365; J2930

== ENCOUNTER 2018-09-13 09:54 | Outpatient (CLI) | payer OTHER ==
[~2018-09-13] VITALS: Ht 160 cm; Wt 115.0 kg
[~2018-09-13 09:54] MED LIST changes: -OMEP40CA2 PO; +OMEP40CA97 PO
[2018-09-13 10:02] VITALS: BP 139/77
[2018-09-13] MEDS ORDERED: methylPREDNISolone 1,000 MG, VIAL MATE ADAPTER 1 EACH in D5W 250 ML IV ONE (10:30)
[2018-09-13 11:35] VITALS: BP 151/82
== END 2018-09-13 11:35 | disposition home or self-care (01) ==
LOC: M INFU 09:54
PROVIDERS: ATTEND Psychiatry & Neurology Neurology
DX: G35 Multiple sclerosis (principal)
CPT/HCPCS: 96365; J2930

== ENCOUNTER 2019-01-24 08:55 | Outpatient (CLI) | payer OTHER ==
[2019-01-24] VITALS (7 sets, daily range): BP systolic 119–147; BP diastolic 68–88
[~2019-01-24] VITALS: Ht 160 cm; Wt 115.0 kg
[~2019-01-24 08:55] MED LIST changes: -SODIUM CHLORIDE 0.9% INJ 10 ML SYR IV SCH
[2019-01-24] MEDS ORDERED: methylPREDNISolone INJ 125 MG/2 ML VIAL (J2930) IV ONE (09:15)
[2019-01-24] MEDS ORDERED: SODIUM CHLORIDE 0.9% INJ 10 ML SYR IV PRN (09:15)
[2019-01-24] MEDS ORDERED: diphenhydrAMINE 25 MG CAP PO ONE (09:15)
[2019-01-24] MEDS ORDERED: ACETAMINOPHEN TAB 650MG DOSE (2X325MG) PO ONE (09:15)
[2019-01-24] MEDS ORDERED: 0.22 MICRON FILTER (METHACHOLINE/OCREVUS) XX ONE (09:15)
[2019-01-24] MEDS ORDERED: OCRELIZUMAB 300 MG in NS 250 ML IV ONE (09:30)
[2019-01-24] MEDS ORDERED: SODIUM CHLORIDE 0.9% INJ 10 ML SYR IV SCH (18:00)
== END 2019-01-24 12:45 | disposition home or self-care (01) ==
LOC: M INFU 08:55
PROVIDERS: ATTEND Psychiatry & Neurology Neurology
DX: G35 Multiple sclerosis (principal)
CPT/HCPCS: 96365; 96366; 96375; J2350; J2930

== ENCOUNTER → 2019-01-30 | Outpatient (REF) | payer OTHER ==
[2019-01-30 14:10] LABS: BASO # 0.1 10^3/uL (0.0-0.2); BASO % 0.7 % (0.0-1.0); EOS % 0.4 % (0.0-3.0); HEMATOCRIT 40.6 % (36.0-47.0); HEMOGLOBIN 12.3 g/dl (12.0-15.5); LYMPH # 2.5 10^3/uL (1.5-5.0); LYMPH % 22.3 % (24.0-44.0); MEAN CORPUSCULAR HEMOGLOBIN 26.5 pg (27.0-33.0); MEAN CORPUSCULAR HGB CONC 30.3 g/dl (32.0-36.5); MEAN CORPUSCULAR VOLUME 87.3 fl (80.0-96.0); MONO # 1.1 10^3/uL (0.0-0.8); MONO % 9.5 % (0.0-5.0); NEUTROPHILS # 7.6 10^3/uL (1.5-8.5); NEUTROPHILS % 66.7 % (36.0-66.0); PLATELET COUNT, AUTOMATED 305 10^3/uL (150-450); RED BLOOD COUNT 4.65 10^6/uL (4.00-5.40); WHITE BLOOD COUNT 11.3 10^3/uL (4.0-10.0)
[2019-01-30 14:27] LABS: ALBUMIN 3.7 GM/DL (3.2-5.2); ALT/SGPT 25 U/L (12-78); BILIRUBIN,TOTAL 0.4 MG/DL (0.2-1.0); BLOOD UREA NITROGEN 13 MG/DL (7-18); CALCIUM LEVEL 9.1 MG/DL (8.5-10.1); CARBON DIOXIDE LEVEL 30 MEQ/L (21-32); CHLORIDE LEVEL 106 MEQ/L (98-107); CREATININE FOR GFR 0.85 MG/DL (0.55-1.30); GLOMERULAR FILTRATION RATE > 60.0 (>58); GLUCOSE, FASTING 91 MG/DL (70-100); POTASSIUM SERUM 4.4 MEQ/L (3.5-5.1); SODIUM LEVEL 142 MEQ/L (136-145)
== END ==
LOC: M LABNEURO 11:56
PROVIDERS: ATTEND Psychiatry & Neurology Neurology
DX: B19.10 Unspecified viral hepatitis B without hepatic coma (principal)

== ENCOUNTER 2019-02-14 09:11 | Outpatient (CLI) | payer OTHER ==
[~2019-02-14] VITALS: Ht 160 cm; Wt 115.0 kg
[~2019-02-14 09:11] MED LIST changes: +SODIUM CHLORIDE 0.9% INJ 10 ML SYR IV SCH
[2019-02-14 09:15] VITALS: BP 129/56
[2019-02-14] MEDS ORDERED: diphenhydrAMINE 25 MG CAP PO ONE (09:30)
[2019-02-14] MEDS ORDERED: methylPREDNISolone INJ 125 MG/2 ML VIAL (J2930) IV ONE (09:30)
[2019-02-14] MEDS ORDERED: OCRELIZUMAB 300 MG in NS 250 ML IV ONE (09:30)
[2019-02-14] MEDS ORDERED: ACETAMINOPHEN TAB 650MG DOSE (2X325MG) PO ONE (09:30)
[2019-02-14 10:25] VITALS: BP 117/60
[2019-02-14 10:55] VITALS: BP 130/60
[2019-02-14 11:25] VITALS: BP 122/58
[2019-02-14 11:55] VITALS: BP 130/63
[2019-02-14 12:25] VITALS: BP 132/82
== END 2019-02-14 13:00 | disposition home or self-care (01) ==
LOC: M INFU 09:11
PROVIDERS: ATTEND Psychiatry & Neurology Neurology
DX: G35 Multiple sclerosis (principal); Z88.5 Allergy status to narcotic agent; Z88.8 Allergy status to other drugs, medicaments and biological substances
CPT/HCPCS: 96413; 96415; J2350; J2930

== ENCOUNTER 2019-05-29 05:37 | Day surgery (SDC) | payer OTHER ==
[~2019-05-29] VITALS: Ht 162.6 cm; Wt 112.9 kg
[~2019-05-29 05:37] MED LIST changes: -BREO1INH IN; +BREO1INH INH; +FERR1TAB8 PO; -INCR1INH IN; +INCR1INH INH; +INSUH10VL SC; -MONT10TA2 PO; +MONT10TA4 PO; +OXYC1TAB15 PO; -SODIUM CHLORIDE 0.9% INJ 10 ML SYR IV SCH
[2019-05-29] MEDS ORDERED: LIDOCAINE 1% MDV 20ML VIAL SQ PRN (06:00)
[2019-05-29] MEDS ORDERED: ceFAZolin SOD 2 GM in IV 1 EA IV ONE (06:00)
[2019-05-29] MEDS ORDERED: LR 1,000 ML IV SCH ×3 (06:00→11:00)
[2019-05-29] MEDS ORDERED: VANCOMYCIN HCL 1,000 MG, VIAL MATE ADAPTER 1 EACH in D5W 250 ML IV ONE (06:00)
[2019-05-29] MEDS ORDERED: LIDOCAINE 2% INJ 100 MG/5 ML SDV (FOR ANES.) As Ordered ONE (06:56)
[2019-05-29] MEDS ORDERED: fentaNYL 100 MCG/2 ML INJECTION (J3010) As Ordered ONE (06:56)
[2019-05-29] MEDS ORDERED: ONDANSETRON 4MG/2ML VIAL (J2405) As Ordered ONE (06:56)
[2019-05-29] MEDS ORDERED: propofoL 500 MG/50 ML VIAL As Ordered ONE ×2 (06:56→08:51)
[2019-05-29] MEDS ORDERED: KETOROLAC 60 MG/2 ML VIAL (J1885) As Ordered ONE (06:56)
[2019-05-29] MEDS ORDERED: dexameTHASONE 4 MG/ML 1ML VIAL (J1100) As Ordered ONE (06:56)
[2019-05-29] MEDS ORDERED: MIDAZOLAM INJ 2 MG/2 ML VIAL (J2250) As Ordered ONE (06:56)
[2019-05-29] MEDS ORDERED: HEPARIN SOD (PORCINE) 5000 UNITS/ML VIAL (J1644 PER 1000UNITS) As Ordered ONE (07:03)
[2019-05-29] MEDS ORDERED: LIDOCAINE 1% SDV INJ 30 ML VIAL As Ordered ONE (07:03)
[2019-05-29] MEDS ORDERED: PHENYLephrine HCL 500 MCG/5 ML (100MCG/ML) SYRINGE (J2370) As Ordered ONE (09:11)
--- NOTE | 2019-05-29 09:58 | REP ---
Clinical: Status post Dsqptz-I-Tmul placement. Technique: Intraoperative fluoroscopic imaging using portable C-arm technique. Findings: Final images demonstrate Fmttdf-S-Jobm overlying the right upper thorax via right internal jugular approach with catheter tip extending into the SVC/right atrium. Total fluoroscopic time 70 seconds. Impression: Satisfactory Jnbpla-K-Bswk placement. Electronically Signed by Anton Almanzar MD 05/29/2019 09:50 A
[2019-05-29] MEDS ORDERED: fentaNYL 100 MCG/2 ML INJECTION (J3010) IV PRN (11:00)
[2019-05-29] MEDS ORDERED: PERCOCET 5MG/325MG TAB PO PRN (11:00)
[2019-05-29] MEDS ORDERED: ONDANSETRON 4MG/2ML VIAL (J2405) IV PRN (11:00)
[2019-05-29 11:45] VITALS: BP 114/57
--- NOTE | 2019-05-29 17:45 | ECGEPIP ---
[facility] Test Date: 2019-05-29 Pat Name: DESIREE ATKINSON Department: Room: - Gender: Female Bilingual Office Assistant: ADWOA : 1970 Requested By: ETHAN Werner Order Number: [id number] Reading MD: Conor Treviño Measurements Intervals [place] Rate: 90 P: 59 VA: 178 QRS: 30 QRSD: 87 T: 30 QT: 365 QTc: 449 Interpretive Statements SINUS RHYTHM SIMILAR TO 06/05/2018 Electronically Signed on 05-29-2019 17:44:48 EDT by Conor Treviño
--- NOTE | 2019-05-29 19:43 | RO ---
DATE OF PROCEDURE: 05/29/2019 PREOPERATIVE DIAGNOSIS: Need for intravenous access for ongoing medications. POSTOPERATIVE DIAGNOSIS: Need for intravenous access for ongoing medications. PROCEDURE PERFORMED: Implantation of a right internal jugular vein Pdgkjq-C-Gfsc using ultrasound and fluoroscopic guidance. SURGEON: Nick Gold MD FOOD PRODUCTION MANAGER: ANESTHESIA: Local with 1% Xylocaine with monitored anesthesia care. IMPLANTS: The port inserted was a Bard port Fjeaxj-F-Ajpd, reference code [id number] and lot number [id number]. INDICATIONS FOR PROCEDURE Patient is a 48-year-old woman with a history of multiple sclerosis. She is now on a periodic intravenous medication. She has poor peripheral venous access and has relied on an Gtoxgk-W-Jmvd previously. This had recently become infected and was removed. She is now for placement of a new Wonerw-Z-Dbxj. OPERATIVE PROCEDURE The patient was brought to the operating room and placed on the table in a supine position. She received sedation from anesthesia. The patient's neck and upper chest were prepped and draped in a sterile fashion. The ultrasound probe was draped and the right neck was inspected. She was placed into a slight Trendelenburg position. She had an excellent size internal jugular vein with good respiratory variation incised. The artery was also noted. Local anesthesia was achieved with 1% Xylocaine. Using ultrasound guidance the 18-gauge needle was inserted into the vein without difficulty. There was excellent return of blood. The guidewire was passed. With the guidewire in place, the patient was returned to a flat position and fluoroscopy confirmed the positioning of the wire in the right side of the heart. The patient was then returned to a slight Trendelenburg position. The skin was nicked at the wire insertion site and the peel-away sheath was passed. The Ylpkri-V-Oxnm catheter was inserted through the peel-away sheath and the sheath was removed. Blood aspirated readily from the catheter and this was then flushed with heparinized saline. The catheter was withdrawn to approximately 15 cm of the skin surface. Again with fluoroscopic inspection, the insertion depth of the catheter was adjusted to approximately the 12 cm arelis at the skin surface in the neck. A site for the skin incision was marked in the right upper chest. An approximately 3-3-1/2 cm transverse incision was made and a subcutaneous pocket was created. The catheter was tunneled down to the port site after infiltrating the overlying skin with some additional 1% Xylocaine. Hemostasis was ensured in the port pocket. The catheter was then cut to length and attached to the port using the locking ring. The port was flushed with 100 units/cc heparin solution. A final fluoroscopic image confirmed that the catheter tip was nicely into the region of the junction of the superior vena cava and the right atrium. There was no evidence of kinking of the catheter. The port pocket was closed with some buried sutures of #3-0 Vicryl and a running subcuticular suture of #5-0 Vicryl. The neck incision was closed with two simple buried sutures of #5-0 Vicryl. Steri-Strips were applied to both incisions followed by small OpSite dressings. The patient tolerated the procedure well without apparent complication. She was awakened in the operating room and transported to advanced recovery in stable condition.
== END 2019-05-29 11:55 | disposition home or self-care (01) ==
LOC: M SDC 05:37
PROVIDERS: ATTEND Surgery
DX: G35 Multiple sclerosis (principal); E11.9 Type 2 diabetes mellitus without complications; Z79.4 Long term (current) use of insulin; I10 Essential (primary) hypertension; G47.30 Sleep apnea, unspecified; J44.9 Chronic obstructive pulmonary disease, unspecified; Z88.5 Allergy status to narcotic agent; Z88.1 Allergy status to other antibiotic agents; Z88.8 Allergy status to other drugs, medicaments and biological substances; Z79.899 Other long term (current) drug therapy
CPT/HCPCS: 36561; 76000; 93005; C1788; J1100; J1642; J1644; J1885; J2250; J2370; J2405; J3010; J3370

== ENCOUNTER → 2019-12-13 | Outpatient (CLI) | payer OTHER ==
[~2019-12-13] MED LIST changes: +D 101000 PO; +METH1TAB40 PO; +OXYC1TAB15; +PRIM50TA6 PO; +VITA50005
== END ==
LOC: M LABSMTC 09:16
PROVIDERS: ATTEND Anesthesiology
DX: Z01.812 Encounter for preprocedural laboratory examination (principal); Z20.828 Contact with and (suspected) exposure to other viral communicable diseases
CPT/HCPCS: C9803; U0003

== ENCOUNTER 2019-12-18 11:27 | Day surgery (SDC) | payer OTHER ==
[~2019-12-18] VITALS: Ht 162.6 cm; Wt 115.8 kg
[~2019-12-18 11:27] MED LIST changes: +LR 1,000 ML IV ONE; +ceFAZolin SOD 2 GM in IV 1 EA IV ONE
[2019-12-18] MEDS ORDERED: propofoL 200 MG/20 ML VIAL As Ordered ONE (11:58)
[2019-12-18] MEDS ORDERED: fentaNYL 100 MCG/2 ML INJECTION (J3010) As Ordered ONE ×2 (11:59→14:36)
[2019-12-18] MEDS ORDERED: MIDAZOLAM INJ 2MG/2ML VIAL (J2250 PER 1MG) As Ordered ONE (11:59)
[2019-12-18] MEDS ORDERED: LIDOCAINE 2% 100MG/5ML SDV (FOR ANES.) As Ordered ONE (12:02)
[2019-12-18] MEDS ORDERED: LIDOCAINE 1% SDV 30ML VIAL As Ordered ONE (12:40)
[2019-12-18] MEDS ORDERED: propofoL 500 MG/50 ML VIAL As Ordered ONE (13:36)
--- NOTE | 2019-12-18 15:55 | REPVR ---
PROCEDURE INFORMATION: Exam: XR Chest, 1 View Exam date and time: 12/18/2019 3:42 PM Age: 49 years old Clinical indication: Device placement; Other: Status post Infusaport placement TECHNIQUE: Imaging protocol: XR of the chest Views: 1 view. COMPARISON: CR Chest, 2 view PA, Lat 10/26/2017 7:57 PM FINDINGS: Tubes, catheters and devices: Right chest ported venous catheter is present with its catheter tip terminating at the brachiocephalic vein confluence. A portion of the catheter at the right lower neck is not imaged. Lungs: No pulmonary consolidation or edema. Pleural space: No evident pleural effusion. No evident pneumothorax. Heart/Mediastinum: Heart size is within normal limits given the portable technique. Vasculature: Mildly tortuous thoracic aorta. Bones/joints: No acute osseous abnormality. IMPRESSION: Right chest ported venous catheter is present with its catheter tip terminating at the brachiocephalic vein confluence. No evident pneumothorax. Electronically signed by: Severiano Richardson On 12/18/2019 15:55:44 PM
[2019-12-18] MEDS ORDERED: ACETAMINOPHEN TAB 650MG DOSE (2X325MG) As Ordered ONE (16:03)
[2019-12-18 16:10] VITALS: BP 132/85
[2019-12-18] MEDS ORDERED: ACETAMINOPHEN TAB 650MG DOSE (2X325MG) PO PRN (16:15)
--- NOTE | 2019-12-19 10:56 | RO ---
DATE OF OPERATION: 12/18/2019 PREOPERATIVE DIAGNOSIS: Malpositioned Ytibx-t-aour port. POSTOPERATIVE DIAGNOSIS: Malpositioned Oausz-e-fvie port. PROCEDURE: Exploration and repositioning of Yjlnk-x-gbwi port. SURGEON: Nick Gold MD DE ICER: ANESTHESIA: Monitored anesthesia care with local of 1% Xylocaine. INDICATIONS FOR PROCEDURE: Patient is a 49-year-old woman with a right internal jugular vein Sdylv-g-xmgj which is required for intermittent use for management of medical problems with intravenous medications. She has poor peripheral access and the port was placed several months ago. Unfortunately, the port shifted slightly and is now tilted such that access is uncomfortable and difficult for the visiting nurses. She is now for exploration of the port site and repositioning of the port to try to make access easier. DESCRIPTION OF PROCEDURE: The patient was brought to the operating room and placed on the table in a supine position. She received sedation form anesthesia. The right breast was taped down, pulling this somewhat inferiorly to better expose the site of the port. The patient's right upper chest and the base of the neck were prepped and draped in a sterile fashion. There were three roughly parallel, slightly overlapping scars evident on the patient's right infraclavicular fossa. The port was palpable just inferior to the lowest transverse scar. There was a tilt of the port identified. The catheter was palpable extending up across the clavicle consistent with an internal jugular placement. 1% Xylocaine was infiltrated along the medial of the three transverse scars. This appeared to lie slightly above the location of the current port. An approximately 5 cm transverse incision was made through this area and deepened into the subcutaneous tissues. At the lateral aspect of this incision, the locking hub of the catheter to the port was identified and this was freed circumferentially. The beginning of the catheter was identified and the sheath of scar tissue around the catheter was slightly opened with care to avoid injuring the catheter. The capsule that had formed around the port was then opened completely freeing the port for repositioning. The dissection was then carried medially beneath the medial two-thirds of the incision. A pocket was created in the subcutaneous tissues. Some scarring in the overlying skin was excised to thin the skin so that this would form better around the port. Once the port had been freed from the capsule, the port was moved slightly medial into the subcutaneous pocket that had been created. This appeared to give a flat surface and also moved the port slightly further up the chest wall and medially where the subcutaneous tissues were thinner. The pocket that had been opened was then closed with some buried 3-0 chromic sutures to approximate these tissues and obliterate the space. The port was sutured to the underlying subcutaneous fibrofatty tissues with several sutures of 3-0 Vicryl. The skin edges were then brought into apposition with some buried 3-0 Vicryl and the wound itself was closed with a running subcuticular suture of 5-0 Vicryl. Care had been taken to achieve excellent hemostasis prior to closing the wound. The port was accessed with a Smith needle and flushed with approximately 8 mL of 100 units/cc of heparin solution. The catheter flushed easily. Steri-Strips and a light dressing were then applied. The patient tolerated the procedure well without apparent complication. She was awakened in the operating room and transported to advanced recovery in stable condition. TWAN
== END 2019-12-18 16:45 | disposition home or self-care (01) ==
LOC: M SDC 11:27
PROVIDERS: ATTEND Surgery
DX: T82.524A Displacement of infusion catheter, initial encounter (principal); I10 Essential (primary) hypertension; E11.9 Type 2 diabetes mellitus without complications; K21.9 Gastro-esophageal reflux disease without esophagitis; D64.9 Anemia, unspecified; G35 Multiple sclerosis; M79.7 Fibromyalgia; J44.9 Chronic obstructive pulmonary disease, unspecified; Z79.4 Long term (current) use of insulin; Z86.711 Personal history of pulmonary embolism; Z79.899 Other long term (current) drug therapy; G47.30 Sleep apnea, unspecified
CPT/HCPCS: 36576; 71045; J0690; J1642; J2250; J3010

== ENCOUNTER 2020-02-26 07:55 | Outpatient (CLI) | payer OTHER ==
[~2020-02-26] VITALS: Ht 162.6 cm; Wt 114.3 kg
[2020-02-26] VITALS (7 sets, daily range): BP systolic 127–137; BP diastolic 65–87
[~2020-02-26 07:55] MED LIST changes: -LR 1,000 ML IV ONE; -MONT10TA4 PO; +MONT5TAB2 PO; -ceFAZolin SOD 2 GM in IV 1 EA IV ONE
[2020-02-26] MEDS ORDERED: diphenhydrAMINE 25MG CAP PO ONE (08:00)
[2020-02-26] MEDS ORDERED: methylPREDNISolone 125MG 2ML VIAL IV ONE (08:00)
[2020-02-26] MEDS ORDERED: ACETAMINOPHEN TAB 650MG DOSE (2X325MG) PO ONE (08:00)
[2020-02-26] MEDS ORDERED: OCRELIZUMAB 600 MG in NS 500 ML IV ONE (08:00)
[2020-02-26] MEDS ORDERED: SODIUM CHLORIDE 0.9% INJ 10 ML SYR IV PRN (08:45)
[2020-02-26] MEDS ORDERED: SODIUM CHLORIDE 0.9% INJ 10 ML SYR IV SCH (09:00)
== END 2020-02-26 12:30 | disposition home or self-care (01) ==
LOC: M INFU 07:55
PROVIDERS: ATTEND Psychiatry & Neurology Neurology
DX: G35 Multiple sclerosis (principal); Z88.6 Allergy status to analgesic agent; Z88.8 Allergy status to other drugs, medicaments and biological substances
CPT/HCPCS: 96365; 96366; 96375; J1642; J2350; J2930

== ENCOUNTER 2020-05-31 20:30 | Inpatient (IN) | payer OTHER ==
[~2020-05-31] VITALS: Ht 162.6 cm; Wt 114.3 kg
[~2020-05-31 20:30] MED LIST changes: +GABA-282 PO; -GABA-843 PO; -LISI-538 PO; +LISI10TA22 PO; -LISI10TA4 PO; +LISI20TA33 PO; +METH-1164 PO; -METH1TAB40 PO; +MONT10TA10 PO; -MONT5TAB2 PO; -OXYC1TAB15; -VITA50005; +VITA50005 PO
[2020-05-31] MEDS ORDERED: HumaLOG INSULIN (NovoLOG) PER UNIT SC SCH (21:00)
[2020-05-31 22:10] VITALS: BP 180/80
[2020-05-31 22:15] VITALS: BP 120/80
[2020-05-31] MEDS ORDERED: ACETAMINOPHEN TAB 650MG DOSE (2X325MG) PO PRN (23:00)
[2020-05-31] MEDS ORDERED: GLUCOSE 4GM CHEW TABLET PO PRN (23:15)
[2020-05-31] MEDS ORDERED: GLUCAGON INJ 1MG VIAL SC PRN (23:15)
[2020-05-31] MEDS ORDERED: PANTOPRAZOLE 40MG VIAL (C9113 PER 1) IV SCH (23:15)
[2020-05-31] MEDS ORDERED: DEXTROSE 50% 50 ML SYRINGE IV PRN (23:15)
[2020-05-31] MEDS ORDERED: TRUL10IN SC (23:27)
[2020-05-31] MEDS ORDERED: GABA800T4 PO (23:27)
--- NOTE | 2020-05-31 23:37 | IPNPDOC ---
Text Note Date of Service The patient was seen on 05/31/20. NOTE time of service 1025pm is a 49 yr old w DM & MS that has been well controlled on Ocrevis for about 2 yrs. She presented to [facility] w c/o BLE weakness and paresthesias; her ROS was negative. Dr. Zuniga discussed the case with Dr. Clemente who recommended starting steroids and transfer for MRI. Rest per 's H&P VS,Fishbone, I+O VS, Fishbone, I+O Vital Signs Date Time Temp Pulse Resp B/P (MAP) Pulse Ox O2 Delivery O2 Flow Rate FiO2 05/31/20 22:10 98.2 73 18 180/80 (113) 96 Room Air GENESIS MONTES MD May 31, 2020 23:37
[2020-05-31] MEDS ORDERED: SODIUM CHLORIDE 0.9% INJ 10 ML SYR IV PRN (23:45)
--- NOTE | 2020-05-31 23:53 | HPEPDOC ---
General Date of Admission May 31, 2020 at 22:12 Date of Service: May 31, [address] Stallings Attending Physician: GENESIS MONTES MD Chief Complaint weakness History of Present Illness This is a 49-year-old female who was transferred to [facility] from [facility] where she presented with bilateral leg weakness and numbness for the past week. She states that shes experienced headaches as pounding in nature for about a day and then subsided. She states that she has been feeling a burning sensation in her tailbone since last week. When asked if she has any bowel or urinary incontinence. She denies. She also denies loss of feeling in the perianal region. She denies any numbness and tingling down to the back of her legs. Denies CP, sob, abd pain, fever, chills, n/v/d. ROS: 12 point ROS negative except as listed in HPI Past medical/surgical history Multiple sclerosis Asthma Hypertension. PCOS Hyperlipidemia. Fibromyalgia. Anxiety. Bilateral cataract surgery March 2020 Left rotator cuff repair April 2020 Cholecystectomy Tonsillectomy. Tubal ligation. Hysterectomy. Social history: , 3 children. Denies any alcohol or illicit drug use. Never smoker Family history: Brother with hydrocephalus with parents with CAD / Father with asthma / Half-sister diagnosed with Graves disease PHYSICAL EXAM: VS: see below General: Female in no acute distress, answering questions appropriately, davey like facies, cushingid appearance HEENT: Anicteric. Tongue midline. Pupils equal, round, react to light bilaterally accommodating appropriately. 4. Home appreciated Neck no adenopathy, no thyromegaly appreciated. Pulmonary: No wheezing, rhonchi or rales appreciated. Cardio normal S1, S2, no murmur, gallops or rubs appreciated. Abdomen soft, obese, nontender, nondistended. No guarding on palpation. Normal bowel sounds throughout. Extremities: no edema bilateral lower extremities 2+ pedal pulses bilaterally. No cyanosis or clubbing Neuro: Rapid alternating movements within normal limits. Cranial nerves II-XII were preserved bilaterally. sensation intact throughout . Strength 5 out of 5 throughout IMAGING: From [facility] on 05/31/20 faxed to [facility]. CT scan of head without contrast was performed which shows no evidence of acute intracranial pathology, multiple view abdominal series with PA chest did not show any evidence of acute consolidation or CHF; some bibasilar subsegmental ate lectasis XR chest: no acute findings see details from [employer] faxed report Assessment and plan This is a 49-year-old with history of multiple sclerosis with remitting relapsing episodes have required previous admissions, hypertension, polycystic ovarian syndrome, asthma, admitted anterior hospitalist service for further management for what seems like an acute exacerbation of her multiple sclerosis #Exacerbation of multiple sclerosis - Will order for IV Solu-Medrol 500 daily - For MRI without contrast to evaluate for disease progression - pain control with home percocet - will add tylenol q4h PRN for pain as well - Continue home gabapentin - A.m team to consider neurology consultation if needed (Pt follows with Dr. Stallings) - Nothing by mouth except for meds. - Speech and swallow evaluation #coccyx paresthesia - Although clinical suspicion for cauda equina syndrome is low- will order for Coccyx xray- pending - pt denies any bowel or bladder symptoms - Am team consider MRI of lumbar sacral region as needed #Chronic Asthma -Continue home meds #Essential HTN -will continue home meds #HLD -c/w home statin #class 3 obesity -complicates care DVT prophylaxis. Heparin CODE STATUS full Home Medications Scheduled Atorvastatin Calcium (Atorvastatin Calcium) 10 Mg Tab, 10 MG PO DAILY, (Reported) Dulaglutide (Trulicity) 0.75 Mg/0.5 Ml Pen.injctr, 0.75 MG SC QWEEK, (Reported) tuesday Ergocalciferol (Vitamin D2) (Vitamin D2) 50,000 Units Cap, 50,000 MG PO QWEEK, (Reported) tuesday Gabapentin (Gabapentin) 800 Mg Tablet, 800 MG PO TID, (Reported) Lisinopril (Lisinopril) 20 Mg Tab, 20 MG PO DAILY, (Reported) Methocarbamol (Methocarbamol) 500 Mg Tablet, 500 MG PO BID, (Reported) Montelukast Sodium (Montelukast Sodium) 10 Mg Tablet, 10 MG PO DAILY, (Reported) Omeprazole (Omeprazole) 40 Mg Cap, 40 MG PO BID, (Reported) Primidone (Primidone) 50 Mg Tablet, 50 MG PO BID, (Reported) Verapamil HCl (Verapamil Sr) 120 Mg Cap, 120 MG PO DAILY, (Reported) Scheduled PRN Oxycodone HCl/Acetaminophen (Oxycodon-Acetaminophen 7.5-325) 1 Each Tablet, 1 TAB PO DAILY PRN for PAIN, (Reported) Allergies Coded Allergies: baclofen (Verified Allergy, Unknown, 12/07/19) fluticasone (Verified Allergy, Unknown, 12/07/19) morphine (Verified Allergy, Unknown, 12/07/19) A-FIB/CHADSVASC A-FIB History Current/History of A-Fib/PAF?: No Current PO Anticoag Therapy: No Vital Signs Vital Signs Date Time Temp Pulse Resp B/P (MAP) Pulse Ox O2 Delivery O2 Flow Rate FiO2 05/31/20 22:10 98.2 73 18 180/80 (113) 96 Room Air Laboratory Data Labs 24H Laboratory Tests 2 05/31/20 23:40: CBC/BMP Plan / VTE VTE Prophylaxis Ordered?: Yes Nelida Aquino DO May 31, 2020 23:53 GENESIS MONTES MD Jun 04, 2020 06:28
[2020-06-01 00:13] LABS: BLOOD UREA NITROGEN 13 MG/DL (7-18); CALCIUM LEVEL 8.5 MG/DL (8.5-10.1); CARBON DIOXIDE LEVEL 27 MEQ/L (21-32); CHLORIDE LEVEL 107 MEQ/L (98-107); GLOMERULAR FILTRATION RATE > 60.0 (>51); GLUCOSE, FASTING 172 MG/DL (70-100); POTASSIUM SERUM 4.4 MEQ/L (3.5-5.1); SODIUM LEVEL 140 MEQ/L (136-145)
[2020-06-01 00:17] LABS: HEMATOCRIT 41.3 % (36.0-47.0); HEMOGLOBIN 13.4 g/dl (12.0-15.5); MEAN CORPUSCULAR HGB CONC 32.4 g/dl (32.0-36.5); MEAN CORPUSCULAR VOLUME 92.6 fl (80.0-96.0); PLATELET COUNT, AUTOMATED 264 10^3/uL (150-450); RED BLOOD COUNT 4.46 10^6/uL (4.00-5.40); WHITE BLOOD COUNT 9.8 10^3/uL (4.0-10.0)
[2020-06-01] MEDS: methocarbamoL 500 MG TAB PO SCH ×3 (01:06→20:20)
[2020-06-01] MEDS: OMEPRAZOLE 20 MG CAP PO SCH ×3 (01:07→20:20)
[2020-06-01] MEDS: PRIMIDONE 50 MG TAB PO SCH ×3 (01:07→20:20)
[2020-06-01] MEDS: GABAPENTIN 400MG CAP PO SCH ×4 (01:07→20:20)
[2020-06-01] MEDS: HumaLOG INSULIN (NovoLOG) PER UNIT SC SCH ×5 (01:08→21:00)
[2020-06-01] MEDS: HEPARIN SOD (PORCINE) 5000UNITS/ML 1ML VIAL/SYRINGE SC SCH ×5 (05:22→22:00)
[2020-06-01 06:00] VITALS: BP 124/72
[2020-06-01 06:27] LABS: HEMATOCRIT 42.2 % (36.0-47.0); HEMOGLOBIN 13.8 g/dl (12.0-15.5); MEAN CORPUSCULAR HEMOGLOBIN 29.9 pg (27.0-33.0); MEAN CORPUSCULAR HGB CONC 32.7 g/dl (32.0-36.5); MEAN CORPUSCULAR VOLUME 91.3 fl (80.0-96.0); PLATELET COUNT, AUTOMATED 295 10^3/uL (150-450); RED BLOOD COUNT 4.62 10^6/uL (4.00-5.40); WHITE BLOOD COUNT 8.1 10^3/uL (4.0-10.0)
[2020-06-01 06:46] LABS: BLOOD UREA NITROGEN 13 MG/DL (7-18); CALCIUM LEVEL 9.2 MG/DL (8.5-10.1); CARBON DIOXIDE LEVEL 21 MEQ/L (21-32); CHLORIDE LEVEL 108 MEQ/L (98-107); CREATININE FOR GFR 0.84 MG/DL (0.55-1.30); GLOMERULAR FILTRATION RATE > 60.0 (>51); GLUCOSE, FASTING 171 MG/DL (70-100); POTASSIUM SERUM 4.5 MEQ/L (3.5-5.1); SODIUM LEVEL 135 MEQ/L (136-145)
[2020-06-01] MEDS ORDERED: HumaLOG INSULIN (NovoLOG) PER UNIT SC SCH ×2 (07:30→21:00)
--- NOTE | 2020-06-01 08:41 | REP ---
INDICATION: MS, hx asthma. COMPARISON: Comparison portable exam is from December 18, 2019. TECHNIQUE: Portable upright AP chest radiograph. FINDINGS: The lungs are well inflated and free of infiltrate. Pleural angles are sharp. Heart size is normal. Pulmonary vasculature is not increased. There is a right-sided Ndmvqf-X-Ipfb catheter with its tip in the expected location of the superior vena cava again noted. Mild degenerative changes are seen in the thoracic spine. IMPRESSION: No active disease. <Electronically signed by Bradley Guillaume > 06/01/20 [id number]
[2020-06-01] MEDS ORDERED: methylPREDNISolone 125MG 2ML VIAL IV SCH ×2 (09:00)
[2020-06-01] MEDS ORDERED: methylPREDNISolone 1,000 MG, VIAL MATE ADAPTER 1 EACH in NS 250 ML IV SCH (09:00)
--- NOTE | 2020-06-01 09:08 | REP ---
INDICATION: burning in tailbone. COMPARISON: Comparison pelvis radiograph May 23, 2019.. TECHNIQUE: Three views of the sacrum and coccyx are presented. FINDINGS: Lateral view shows no evidence of sacral or coccygeal fracture or displacement. Presacral and post sacral soft tissues are unremarkable. The visualized bowel gas pattern is normal. There are postoperative sutures noted bilaterally in the pelvis unchanged. Mild degenerative narrowing of the L4-5 disc space is noted. SI joints are intact. No sacral lesion is seen. IMPRESSION: Negative views of the sacrum and pelvis. Mild degenerative disc disease at L4-5 in the lumbar spine. <Electronically signed by Bradley Guillaume > 06/01/20 [id number]
[2020-06-01] MEDS: ATORVASTATIN 10 MG TAB PO SCH (09:53)
[2020-06-01] MEDS: MONTELUKAST 10 MG TAB PO SCH (09:53)
[2020-06-01] MEDS: SODIUM CHLORIDE 0.9% INJ 10 ML SYR IV SCH (09:54)
[2020-06-01] MEDS: VERAPAMIL 120 MG SR TAB PO SCH (10:00)
[2020-06-01] MEDS: PERCOCET 5MG/325MG TAB PO PRN (10:53)
[2020-06-01] MEDS ORDERED: PROHANCE 279.3MG/ML 15ML VIAL As Ordered ONE (11:57)
[2020-06-01] MEDS ORDERED: PROHANCE 279.3MG/ML 5ML VIAL As Ordered ONE (11:57)
--- NOTE | 2020-06-01 13:03 | REPVR ---
PROCEDURE INFORMATION: Exam: MR Head Without and With Contrast Exam date and time: 06/01/2020 12:34 PM Age: 49 years old Clinical indication: Multiple sclerosis. TECHNIQUE: Imaging protocol: MR of the head without and with intravenous contrast. Contrast material: PROHANCE; Contrast volume: 20 ml; Contrast route: INTRAVENOUS (IV); COMPARISON: MRI-Brain W/O FOLL BY WITH 07/03/2014 12:59 PM FINDINGS: Brain: There are scattered foci of high signal abnormality within the periventricular white matter, meza radiata, and centrum semiovale consistent with demyelinating plaques in this patient with known multiple sclerosis, similar to prior study. There is no abnormal enhancement. There is an old right cerebellar infarct. Cerebral ventricles: Normal. No ventriculomegaly. Bones/joints: Unremarkable. Paranasal sinuses: Normal as visualized. No acute sinusitis. Mastoid air cells: Normal as visualized. No mastoid effusion. Orbital cavity: Unremarkable. Soft tissues: Unremarkable. IMPRESSION: 1. There are scattered foci of high signal abnormality within the periventricular white matter, meza radiata, and centrum semiovale consistent with demyelinating plaques in this patient with known multiple sclerosis, similar to prior study. There is no abnormal enhancement. 2. There is an old right cerebellar infarct. Electronically signed by: Andres Larson On 06/01/2020 13:03:06 PM
--- NOTE | 2020-06-01 13:28 | REPVR ---
PROCEDURE INFORMATION: Exam: MR Thoracic Spine Without and With Contrast Exam date and time: 06/01/2020 12:34 PM Age: 49 years old Clinical indication: Condition or disease; Patient HX: HX of ms with weakness and falls the past few days. PT receives ocrevus infusions but has not had one in a few months. ; Additional info: Without followed by with TECHNIQUE: Imaging protocol: Multiplanar magnetic resonance images of the thoracic spine without and with contrast. Contrast material: PROHANCE; Contrast volume: 20 ml; Contrast route: INTRAVENOUS (IV); COMPARISON: No relevant prior studies available. FINDINGS: Vertebrae: There is no abnormal enhancement. Spinal cord: Normal signal. No cord compression. Discs/Spinal canal/Neural foramina: There is a left paracentral T7/8 disc herniation that indents the ventral thecal sac and causes mild spinal canal stenosis. Soft tissues: Unremarkable. IMPRESSION: There is a left paracentral T7/8 disc herniation that indents the ventral thecal sac and causes mild spinal canal stenosis. No cord signal abnormality. There is no abnormal enhancement. Electronically signed by: Andres Larson On 06/01/2020 13:28:49 PM
[2020-06-01 14:00] VITALS: BP 110/60
[2020-06-01] MEDS ORDERED: BISACODYL 10 MG SUPP PR ONE (14:00)
[2020-06-01] MEDS ORDERED: FLEET ENEMA PR PRN (14:05)
[2020-06-01] MEDS: SENOKOT S TAB PO SCH (20:20)
[2020-06-01] MEDS: BISACODYL 10 MG SUPP PR SCH (20:21)
[2020-06-01 22:00] VITALS: BP 119/58
[2020-06-02] MEDS: HEPARIN SOD (PORCINE) 5000UNITS/ML 1ML VIAL/SYRINGE SC SCH ×3 (05:32→20:28)
[2020-06-02 06:00] VITALS: BP 112/56
[2020-06-02] MEDS: HumaLOG INSULIN (NovoLOG) PER UNIT SC SCH ×4 (07:27→20:28)
[2020-06-02] MEDS ORDERED: HumaLOG INSULIN (NovoLOG) PER UNIT SC SCH (07:30)
[2020-06-02] MEDS: SENOKOT S TAB PO SCH ×2 (09:00→20:27)
[2020-06-02] MEDS: BISACODYL 10 MG SUPP PR SCH ×2 (09:00→20:30)
[2020-06-02] MEDS: ATORVASTATIN 10 MG TAB PO SCH (09:16)
[2020-06-02] MEDS: methocarbamoL 500 MG TAB PO SCH ×2 (09:17→20:27)
[2020-06-02] MEDS: VERAPAMIL 120 MG SR TAB PO SCH (09:17)
[2020-06-02] MEDS: MONTELUKAST 10 MG TAB PO SCH (09:17)
[2020-06-02] MEDS: OMEPRAZOLE 20 MG CAP PO SCH ×2 (09:17→20:27)
[2020-06-02] MEDS: PRIMIDONE 50 MG TAB PO SCH ×2 (09:17→20:28)
[2020-06-02] MEDS: GABAPENTIN 400MG CAP PO SCH ×3 (09:17→20:27)
[2020-06-02] MEDS: SODIUM CHLORIDE 0.9% INJ 10 ML SYR IV SCH (09:18)
--- NOTE | 2020-06-02 13:18 | IPNPDOC ---
Text Note Date of Service The patient was seen on 06/02/20. NOTE Patient was seen and examined this morning. No acute overnight events. The patient states that she feels a little better today. PHYSICAL EXAM: General: Female in no acute distress. HEENT: Anicteric. Tongue midline. Pupils equal, round, react to light bilateral ly accommodating appropriately Neck: no adenopathy, no thyromegaly appreciated. Pulmonary: No wheezing, rhonchi or rales appreciated. Cardio: normal S1, S2, no murmur, gallops or rubs appreciated. Abdomen: soft, obese, nontender, nondistended. No guarding on palpation. Normal bowel sounds throughout. Extremities: no edema bilateral lower extremities 2+ pedal pulses bilaterally. No cyanosis or clubbing Neuro: Rapid alternating movements within normal limits. Cranial nerves II-XII were preserved bilaterally. sensation intact throughout . Strength 5 out of 5 throughout IMAGING: From [facility] on 05/31/20 faxed to [facility]. CT scan of head without contrast was performed which shows no evidence of acute intracranial pathology, multiple view abdominal series with PA chest did not show any evidence of acute consolidation or CHF; some bibasilar subsegmental atelectasis MRI at [facility]. Demyelinating plaques but stable from the previous exam. Assessment and plan This is a 49-year-old female with the past medical history significant for multiple sclerosis diagnosed in the , asthma, hypertension, PCOS , who presents to [facility] as a direct transfer from [facility]. In [facility], she was given a dose of Solu-Medrol thousand milligrams, CT scan of head without contrast was performed which shows no evidence of acute intracranial pathology, multiple view abdominal series with PA chest did not show any evidence of acute consolidation or CHF; patient stated that shes had bilateral leg weakness and numbness. She states that she has been feeling a burning sensation in her tailbone since last week. . She has been admitted to hospitalist service for further management for what seems like an acute exacerbation of her multiple sclerosis 1. Exacerbation of multiple sclerosis: She got 1000 milligrams, methyl prednisone. MRI of the head was done to look at the progression which seems to be stable at this time. Continue gabapentin. ARU screen. As her symptomatology is improving now. For the MRIs will be done. She will require to follow with outpatient neurology. ARDS screen has been requested as the patient might benefit from rehabilitation. Continue home medications. 2. Asthma. Stable. Continue home meds. 3. HTN-will continue home meds 4. HLD-c/w home statin DVT prophylaxis. Heparin Disposition depending upon ARDS screen and evaluation by PT, OT. VS,Fishbone, I+O VS, Fishbone, I+O Vital Signs Date Time Temp Pulse Resp B/P (MAP) Pulse Ox O2 Delivery O2 Flow Rate FiO2 06/02/20 09:17 120/70 06/02/20 06:00 97.5 78 17 94 Room Air I&O- Last 24 Hours up to 6 AM 06/02/20 05:59 Intake Total 955 ml Output Total 400 ml Balance 555 ml RAMESH DAVID MD Jun 02, 2020 13:18
[2020-06-02 14:00] VITALS: BP 132/75
[2020-06-02 22:00] VITALS: BP 100/57
[2020-06-03] MEDS: HEPARIN SOD (PORCINE) 5000UNITS/ML 1ML VIAL/SYRINGE SC SCH ×2 (05:33→05:37)
[2020-06-03 06:00] VITALS: BP 112/63
[2020-06-03 06:10] LABS: HEMATOCRIT 38.2 % (36.0-47.0); HEMOGLOBIN 12.2 g/dl (12.0-15.5); MEAN CORPUSCULAR HEMOGLOBIN 29.8 pg (27.0-33.0); MEAN CORPUSCULAR HGB CONC 31.9 g/dl (32.0-36.5); MEAN CORPUSCULAR VOLUME 93.2 fl (80.0-96.0); PLATELET COUNT, AUTOMATED 237 10^3/uL (150-450); WHITE BLOOD COUNT 7.1 10^3/uL (4.0-10.0)
[2020-06-03 06:37] LABS: BLOOD UREA NITROGEN 13 MG/DL (7-18); CALCIUM LEVEL 8.3 MG/DL (8.5-10.1); CARBON DIOXIDE LEVEL 32 MEQ/L (21-32); CHLORIDE LEVEL 106 MEQ/L (98-107); CREATININE FOR GFR 0.83 MG/DL (0.55-1.30); GLOMERULAR FILTRATION RATE > 60.0 (>51); GLUCOSE, FASTING 89 MG/DL (70-100); POTASSIUM SERUM 4.3 MEQ/L (3.5-5.1); SODIUM LEVEL 140 MEQ/L (136-145)
[2020-06-03] MEDS: HumaLOG INSULIN (NovoLOG) PER UNIT SC SCH ×2 (07:30→12:00)
[2020-06-03 09:00] VITALS: BP 120/80
[2020-06-03] MEDS: GABAPENTIN 400MG CAP PO SCH (09:00)
[2020-06-03] MEDS: ATORVASTATIN 10 MG TAB PO SCH (09:00)
[2020-06-03] MEDS: MONTELUKAST 10 MG TAB PO SCH (09:00)
[2020-06-03] MEDS: BISACODYL 10 MG SUPP PR SCH (09:00)
[2020-06-03] MEDS: methocarbamoL 500 MG TAB PO SCH (09:00)
[2020-06-03] MEDS: VERAPAMIL 120 MG SR TAB PO SCH (09:00)
[2020-06-03] MEDS: PERCOCET 5MG/325MG TAB PO PRN (09:00)
[2020-06-03] MEDS: OMEPRAZOLE 20 MG CAP PO SCH (09:01)
[2020-06-03] MEDS: SODIUM CHLORIDE 0.9% INJ 10 ML SYR IV SCH (09:01)
[2020-06-03] MEDS: PRIMIDONE 50 MG TAB PO SCH (09:01)
[2020-06-03] MEDS: SENOKOT S TAB PO SCH (09:01)
--- NOTE | 2020-06-03 11:20 | DS.PDOC ---
Discharge Summary General Date of Admission May 31, 2020 at 22:12 Date of Discharge 06/03/20 Discharge Summary Chief complaints Weakness Final diagnosis Exacerbation of multiple sclerosis History of present illness and Hospital course This is a 49-year-old female with the past medical history significant for multiple sclerosis diagnosed in the , asthma, hypertension, PCOS , who presents to [facility] as a direct transfer from [facility]. In [facility], she was given a dose of Solu-Medrol thousand milligrams, CT scan of head without contrast was performed which shows no evidence of acute intracranial pathology, multiple view abdominal series with PA chest did not show any evidence of acute consolidation or CHF; patient stated that shes had bilateral leg weakness and numbness. She states that she has been feeling a burning sensation in her tailbone since last week. . She has been admitted to hospitalist service for further management for what seems like an acute exacerbation of her multiple sclerosis. For her Exacerbation of multiple sclerosis: She got 1000 milligrams, methyl prednisone. MRI of the head was done to look at the progression which seems to be stable at this time. Continue gabapentin. ARU screen was also done, but the patient wants to go home. As her symptomatology improved and she is on her baseline. For the MRIs will be done. She will require to follow with outpatient neurology. Will continue on home meds and she'll be going home with home PT and a follow-up with neurology in 2 weeks. PHYSICAL EXAM: General: Female in no acute distress. HEENT: Anicteric. Tongue midline. Pupils equal, round, react to light bilaterally accommodating appropriately Neck: no adenopathy, no thyromegaly appreciated. Pulmonary: No wheezing, rhonchi or rales appreciated. Cardio: normal S1, S2, no murmur, gallops or rubs appreciated. Abdomen: soft, obese, nontender, nondistended. No guarding on palpation. Normal bowel sounds throughout. Extremities: no edema bilateral lower extremities 2+ pedal pulses bilaterally. No cyanosis or clubbing Neuro: Rapid alternating movements within normal limits. Cranial nerves II-XII were preserved bilaterally. sensation intact throughout . Strength 5 out of 5 throughout upper and lower extremities IMAGING: From [facility] on 05/31/20 faxed to [facility]. CT scan of head without contrast was performed which shows no evidence of acute intracranial pathology, multiple view abdominal series with PA chest did not show any evidence of acute consolidation or CHF; some bibasilar subsegmental atelectasis MRI at [facility]. Demyelinating plaques but stable from the previous exam. Medictations. As per discharge reconciliation medication list Activity as tolerated Diet. 2 g sodium diet Follow-up appointments. PCP in 1 week. Neurology in 2 weeks Condition on discharge. Patient is medically optimized for discharge Discharge disposition: Home Total time spent on this discharge including coordination of care, review of chart documentation and actual patient contact is around 35 minutes Vital Signs/I&Os Vital Signs Date Time Temp Pulse Resp B/P (MAP) Pulse Ox O2 Delivery O2 Flow Rate FiO2 06/03/20 09:30 17 Room Air 06/03/20 09:00 88 120/80 06/03/20 06:00 97.1 93 I&O- Last 24 Hours up to 6 AM 06/03/20 06:00 Intake Total 1950 ml Output Total 1250 ml Balance 700 ml Laboratory Data Labs 24H Laboratory Tests 2 06/02/20 11:21: Bedside Glucose (Misc Panel) 96 06/02/20 16:55: Bedside Glucose (Misc Panel) 78 06/02/20 20:13: Bedside Glucose (Misc Panel) 108H 06/03/20 05:34: Nucleated Red Blood Cells % (auto) 0.0, Anion Gap 2L, Glomerular Filtration Rate > 60.0, Calcium Level 8.3L CBC/BMP Laboratory Tests 06/03/20 05:34 FSBS Laboratory Tests Test 06/02/20 11:21 06/02/20 16:55 06/02/20 20:13 Range/Units Bedside Glucose (Misc Panel) 96 78 108 70-105 MG/DL Discharge Medications Scheduled Atorvastatin Calcium (Atorvastatin Calcium) 10 Mg Tab, 10 MG PO DAILY, (Reported) Dulaglutide (Trulicity) 0.75 Mg/0.5 Ml Pen.injctr, 0.75 MG SC QWEEK, (Reported) tuesday Ergocalciferol (Vitamin D2) (Vitamin D2) 50,000 Units Cap, 50,000 MG PO QWEEK, (Reported) tuesday Gabapentin (Gabapentin) 800 Mg Tablet, 800 MG PO TID, (Reported) Lisinopril (Lisinopril) 20 Mg Tab, 20 MG PO DAILY, (Reported) Methocarbamol (Methocarbamol) 500 Mg Tablet, 500 MG PO BID, (Reported) Montelukast Sodium (Montelukast Sodium) 10 Mg Tablet, 10 MG PO DAILY, (Reported) Omeprazole (Omeprazole) 40 Mg Cap, 40 MG PO BID, (Reported) Primidone (Primidone) 50 Mg Tablet, 50 MG PO BID, (Reported) Verapamil HCl (Verapamil Sr) 120 Mg Cap, 120 MG PO DAILY, (Reported) Scheduled PRN Oxycodone HCl/Acetaminophen (Oxycodon-Acetaminophen 7.5-325) 1 Each Tablet, 1 TAB PO DAILY PRN for PAIN, (Reported) Allergies Coded Allergies: baclofen (Verified Allergy, Unknown, 12/07/19) fluticasone (Verified Allergy, Unknown, 12/07/19) morphine (Verified Allergy, Unknown, 12/07/19) RAMESH DAVID MD Jun 03, 2020 11:20
== END 2020-06-03 13:23 | disposition home health service (06) | DRG 43 ==
LOC: M MSPAV 22:12
PROVIDERS: ADMIT Internal Medicine; ATTEND Internal Medicine
DX: G35 Multiple sclerosis (principal); I10 Essential (primary) hypertension; J45.909 Unspecified asthma, uncomplicated; E78.5 Hyperlipidemia, unspecified; E66.9 Obesity, unspecified; M53.3 Sacrococcygeal disorders, not elsewhere classified; E11.9 Type 2 diabetes mellitus without complications; Z79.899 Other long term (current) drug therapy; Z88.6 Allergy status to analgesic agent; Z88.8 Allergy status to other drugs, medicaments and biological substances; Z68.41 Body mass index [BMI] 40.0-44.9, adult

== ENCOUNTER 2020-06-05 15:59 | Inpatient (IN) | payer OTHER ==
[~2020-06-05] VITALS: Ht 162.6 cm; Wt 115.9 kg
[~2020-06-05 15:59] MED LIST changes: +GABA800T4 PO; +TRUL10IN SC
[2020-06-05 18:08] LABS: BASO # 0.1 10^3/uL (0.0-0.2); EOS # 0.3 10^3/uL (0.0-0.5); HEMATOCRIT 43.5 % (36.0-47.0); HEMOGLOBIN 13.9 g/dl (12.0-15.5); LYMPH # 1.9 10^3/uL (1.5-5.0); LYMPH % 18.2 % (24.0-44.0); MEAN CORPUSCULAR HEMOGLOBIN 29.6 pg (27.0-33.0); MEAN CORPUSCULAR VOLUME 92.6 fl (80.0-96.0); MONO # 0.9 10^3/uL (0.0-0.8); MONO % 8.7 % (2.0-8.0); NEUTROPHILS # 7.1 10^3/uL (1.5-8.5); NEUTROPHILS % 68.7 % (36.0-66.0); PLATELET COUNT, AUTOMATED 287 10^3/uL (150-450); WHITE BLOOD COUNT 10.3 10^3/uL (4.0-10.0)
[2020-06-05 18:38] LABS: ALT/SGPT 28 U/L (12-78); BILIRUBIN,DIRECT < 0.1 MG/DL (0.0-0.2); BILIRUBIN,TOTAL 0.2 MG/DL (0.2-1.0); BLOOD UREA NITROGEN 9 MG/DL (7-18); CALCIUM LEVEL 9.1 MG/DL (8.5-10.1); CARBON DIOXIDE LEVEL 29 MEQ/L (21-32); CHLORIDE LEVEL 104 MEQ/L (98-107); CREATININE FOR GFR 0.77 MG/DL (0.55-1.30); GLOMERULAR FILTRATION RATE > 60.0 (>51); GLUCOSE, FASTING 80 MG/DL (70-100); POTASSIUM SERUM 4.2 MEQ/L (3.5-5.1); SODIUM LEVEL 139 MEQ/L (136-145); TOTAL PROTEIN 6.8 GM/DL (6.4-8.2)
[2020-06-05] MEDS ORDERED: ACET-897 PO (21:40)
[2020-06-05] MEDS ORDERED: OMEP1CAP73 PO (21:40)
[2020-06-05] MEDS ORDERED: PERC7.5T11 PO (21:40)
[2020-06-05] MEDS ORDERED: METH-1165 PO (21:40)
[2020-06-05] MEDS ORDERED: MAALOX 30 ML SUSP *UDC PO PRN (22:00)
[2020-06-05] MEDS ORDERED: MOM 30ML SUSPENSION UDC PO PRN (22:00)
[2020-06-05] MEDS ORDERED: ACETAMINOPHEN TAB 650MG DOSE (2X325MG) PO PRN (22:00)
--- NOTE | 2020-06-05 22:49 | HPEPDOC ---
[facility] Medical History & Physical Date of Admission Jun 05, 2020 Date of Service: Jun 05, 2020 History and Physical CHIEF COMPLAINT: leg weakness HISTORY OF PRESENT ILLNESS: 49 yo F with a PMHx of MS (dx ), asthma, HTN, PCOS, DM2, presented to [facility] from home. She was DC on 06/03/20, after an admission for an MS flare (bilateral leg weakness, numbness, during which MRI brain showed stable demyelinating lesions. She received IV methylprednisone. ARU was recommended but patient opted to go home with services. She returns today after a home PT evaluation showed significant bilateral leg weakness, unsteady gait. Dr. Candelario was called from ER per report, does not believe this to be an MS flare, and no recommendations for steroids or repeat imaging at this time. Patient will be admitted to hospitalist service for monitor and rehab needs. PAST MEDICAL HISTORY: Multiple sclerosis Asthma Hypertension. PCOS Hyperlipidemia. Fibromyalgia. Anxiety. Bilateral cataract surgery March 2020 Left rotator cuff repair April 2020 Cholecystectomy Tonsillectomy. Tubal ligation. Hysterectomy. SOCIAL HISTORY: Denies smoking Denies etoh use Denies illicits , 3 children, lives at home. FAMILY HISTORY: Brother with hydrocephalus Parents with CAD Father with asthma Half-sister diagnosed with Graves disease ALLERGIES: Please see below. REVIEW OF SYSTEMS: 10 point ROS was conducted, relevant findings noted in HPI. HOME MEDICATIONS: Please see below. PHYSICAL EXAMINATION: VITAL SIGNS: please see below General: NAD, comfortable HEENT: PERRLA, EOMI, sclerae clear Neck: supple, normal ROM, no JVD Respiratory: lungs CTAB, no wheeze, no rales, no crackles CVS: RRR, normal S1, S2, no murmurs Abdo: soft, no masses, no hepatosplenomegaly, BS+, no rebound tenderness Extremities: no edema, pulses 2+ MSK: no joint deformities, normal ROM Neuro: no focal neuro deficits, moving all 4 extremities, CN2-[address] ength 5/5 in arms, 4+/5 in legs. No nystagmus. Psych: calm, cooperative, AAO x 3 LABORATORY DATA: See below. MICROBIOLOGY: Please see below. ASSESSMENT: 49 yo F with a PMHx of MS (dx ), asthma, HTN, PCOS, DM2 recently admitted for MS flare, returns with bilateral leg weakness, usnteady ga it. Admitted for ongoing PT eval and likely ARU. . PLAN: Bilateral leg weakness with low back/sacral pain for past 2 weeks. - ER d/w Dr. Candelario, does not believe to be MS flare - does not recommend IV steroid pulse, or additional imaging - PT/OT ordered Asthma - not in acute exacerbation - continue home medications HTN - c/w home meds HLD - c/w statin Dispo: pending clinical improvement. PT/OT ordered. Vital Signs Vital Signs Date Time Temp Pulse Resp B/P (MAP) Pulse Ox O2 Delivery O2 Flow Rate FiO2 06/05/20 20:26 90 97 Room Air 06/05/20 19:00 139/80 (99) 06/05/20 17:17 97.9 06/05/20 16:01 20 Laboratory Data Labs 24H Laboratory Tests 2 06/05/20 17:56: Immature Granulocyte % (Auto) 0.4, Neutrophils (%) (Auto) 68.7H, Lymphocytes (%) (Auto) 18.2L, Monocytes (%) (Auto) 8.7H, Eosinophils (%) (Auto) 3.0, Basophils (%) (Auto) 1.0, Neutrophils # (Auto) 7.1, Lymphocytes # (Auto) 1.9, Monocytes # (Auto) 0.9H, Eosinophils # (Auto) 0.3, Basophils # (Auto) 0.1, Nucleated Red Blood Cells % (auto) 0.0, Anion Gap 6L, Glomerular Filtration Rate > 60.0, Calcium Level 9.1, Total Bilirubin 0.2, Direct Bilirubin < 0.1, Aspartate Amino Transf (AST/SGOT) 11, Alanine Aminotransferase (ALT/SGPT) 28, Alkaline Phosphatase 162H, Total Protein 6.8, Albumin 4.0, Albumin/Globulin Ratio 1.4 06/05/20 19:20: Urine Color YELLOW, Urine Appearance HAZY, Urine pH 5.0, Urine Specific [place] 1.023, Urine Protein NEGATIVE, Urine Glucose (UA) NEGATIVE, Urine Ketones NEGATIVE, Urine Blood NEGATIVE, Urine Nitrite NEGATIVE, Urine Bilirubin NEGATIVE, Urine Urobilinogen 0.2, Urine Leukocyte Esterase NEGATIVE, Urine WBC (Auto) 3, Urine RBC (Auto) 2, Urine Hyaline Casts (Auto) 0, Urine Bacteria (Auto) NEGATIVE, Urine Squamous Epithelial Cells 7, Urine Mucus (Auto) SMALL, Urine Sperm (Auto) CBC/BMP Laboratory Tests 06/05/20 17:56 Home Medications Scheduled Atorvastatin Calcium (Atorvastatin Calcium) 10 Mg Tab, 10 MG PO DAILY Dulaglutide (Trulicity) 0.75 Mg/0.5 Ml Pen.injctr, 0.75 MG SC QWEEK TUESDAY MORNING Ergocalciferol (Vitamin D2) (Vitamin D2) 50,000 Units Cap, 50,000 MG PO QWEEK TUESDAY MORNING Gabapentin (Gabapentin) 800 Mg Tablet, 800 MG PO TID Lisinopril (Lisinopril) 20 Mg Tab, 20 MG PO DAILY Methocarbamol (Methocarbamol) 750 Mg Tablet, 750 MG PO BID Montelukast Sodium (Montelukast Sodium) 10 Mg Tablet, 10 MG PO DAILY Omeprazole (Omeprazole) 20 Mg Capsule.dr, 20 MG PO DAILY Primidone (Primidone) 50 Mg Tablet, 50 MG PO BID Verapamil HCl (Verapamil Sr) 120 Mg Cap, 120 MG PO DAILY Scheduled PRN Acetaminophen (Tylenol Extra Strength) 500 Mg Tablet, 1,000 MG PO TID PRN for PAIN Oxycodone HCl/Acetaminophen (Percocet 7.5-325 mg Tablet) 1 Each Tablet, 1 TAB PO DAILY PRN for PAIN Allergies Coded Allergies: baclofen (Verified Allergy, Unknown, 12/07/19) fluticasone (Verified Allergy, Unknown, 12/07/19) morphine (Verified Allergy, Unknown, 12/07/19) MARCELO TEIXEIRA MD Jun 05, 2020 22:49
[2020-06-05] MEDS ORDERED: DEXTROSE 50% 50 ML SYRINGE IV PRN (22:50)
[2020-06-05] MEDS ORDERED: GLUCAGON INJ 1MG VIAL SC PRN (22:50)
[2020-06-05] MEDS ORDERED: GLUCOSE 4GM CHEW TABLET PO PRN (22:50)
[2020-06-06 00:40] VITALS: BP 140/65
[2020-06-06] MEDS: PRIMIDONE 50 MG TAB PO SCH ×3 (01:32→20:53)
[2020-06-06] MEDS: methocarbamoL 750 MG TAB PO SCH ×3 (01:32→20:53)
[2020-06-06] MEDS: GABAPENTIN 400MG CAP PO SCH ×4 (01:32→20:53)
[2020-06-06] MEDS ORDERED: SODIUM CHLORIDE 0.9% INJ 10 ML SYR IV PRN (01:35)
[2020-06-06 05:49] LABS: BASO # 0.1 10^3/uL (0.0-0.2); BASO % 0.9 % (0.0-1.0); EOS # 0.3 10^3/uL (0.0-0.5); EOS % 3.7 % (0.0-3.0); HEMATOCRIT 40.4 % (36.0-47.0); HEMOGLOBIN 12.8 g/dl (12.0-15.5); LYMPH # 1.5 10^3/uL (1.5-5.0); LYMPH % 16.7 % (24.0-44.0); MEAN CORPUSCULAR HEMOGLOBIN 29.4 pg (27.0-33.0); MEAN CORPUSCULAR HGB CONC 31.7 g/dl (32.0-36.5); MEAN CORPUSCULAR VOLUME 92.9 fl (80.0-96.0); MONO # 0.8 10^3/uL (0.0-0.8); MONO % 9.1 % (2.0-8.0); NEUTROPHILS # 6.2 10^3/uL (1.5-8.5); NEUTROPHILS % 69.3 % (36.0-66.0); PLATELET COUNT, AUTOMATED 266 10^3/uL (150-450); RED BLOOD COUNT 4.35 10^6/uL (4.00-5.40); WHITE BLOOD COUNT 8.9 10^3/uL (4.0-10.0)
[2020-06-06 06:00] VITALS: BP 145/60
[2020-06-06 06:24] LABS: ALBUMIN 3.6 GM/DL (3.2-5.2); ALT/SGPT 27 U/L (12-78); BILIRUBIN,TOTAL 0.3 MG/DL (0.2-1.0); BLOOD UREA NITROGEN 11 MG/DL (7-18); CALCIUM LEVEL 8.5 MG/DL (8.5-10.1); CARBON DIOXIDE LEVEL 28 MEQ/L (21-32); CHLORIDE LEVEL 107 MEQ/L (98-107); CREATININE FOR GFR 0.71 MG/DL (0.55-1.30); GLOMERULAR FILTRATION RATE > 60.0 (>51); GLUCOSE, FASTING 80 MG/DL (70-100); MAGNESIUM LEVEL 2.2 MG/DL (1.8-2.4); POTASSIUM SERUM 4.1 MEQ/L (3.5-5.1); SODIUM LEVEL 141 MEQ/L (136-145); TOTAL PROTEIN 6.2 GM/DL (6.4-8.2)
--- NOTE | 2020-06-06 06:42 | ECGEPIP ---
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
[2020-06-06] MEDS: HumaLOG INSULIN (NovoLOG) PER UNIT SC SCH ×3 (06:56→16:35)
[2020-06-06] MEDS: ATORVASTATIN 10 MG TAB PO SCH (09:04)
[2020-06-06] MEDS: DOCUSATE SODIUM 100MG CAPSULE PO SCH ×2 (09:05→20:53)
[2020-06-06] MEDS: MONTELUKAST 10 MG TAB PO SCH (09:05)
[2020-06-06] MEDS: VERAPAMIL 120 MG SR TAB PO SCH (09:06)
[2020-06-06] MEDS: OMEPRAZOLE 20 MG CAP PO SCH (09:07)
[2020-06-06] MEDS: SODIUM CHLORIDE 0.9% INJ 10 ML SYR IV SCH (09:08)
[2020-06-06] MEDS: ENOXAPARIN 40MG/0.4ML SYRINGE (J1650 PER 10MG) SC SCH (09:09)
[2020-06-06 14:00] VITALS: BP 112/67
--- NOTE | 2020-06-06 19:11 | IPNPDOC ---
Text Note Date of Service The patient was seen on 06/06/20. NOTE SUBJECTIVE: She continues to feel weak at this time, she notes that there is essentially no change in her baseline status over the past few days. This has been difficult for her, and she is hopeful that she might be able to go to the acute rehabilitation unit such that she might be able to maximize her therapeutic benefit. Otherwise, she does not have any acute complaints at this time. PHYSICAL EXAMINATION: VITAL SIGNS: please see below General: NAD, comfortable HEENT: PERRLA, EOMI, sclerae clear Neck: supple, normal ROM, no JVD Respiratory: lungs CTAB, no wheeze, no rales, no crackles CVS: RRR, normal S1, S2, no murmurs Abdo: soft, no masses, no hepatosplenomegaly, BS+, no rebound tenderness Extremities: no edema, pulses 2+ MSK: no joint deformities, normal ROM Neuro: no focal neuro deficits, moving all 4 extremities, CN2-12 intact. Strength 5/5 in arms, 4+/5 in legs. No nystagmus. Psych: calm, cooperative, AAO x 3 ASSESSMENT: 49 yo F with a PMHx of MS (dx ), asthma, HTN, PCOS, DM2 recently admitted for MS flare, returns with bilateral leg weakness, usnteady gait. Admitted for ongoing PT eval and likely ARU. PLAN: Bilateral leg weakness with low back/sacral pain for past 2 weeks. - Case was discussed with neurology when she came back to the emergency department, and they do not believe to be MS flare, and do not recommend IV steroid pulse, or additional imaging - PT/OT ordered Asthma - not in acute exacerbation - continue home medications HTN - c/w home meds HLD - c/w statin Dispo: Evaluation as to whether or not she'll be a candidate for ARU has been ordered. VS,Fishbone, I+O VS, Fishbone, I+O Laboratory Tests 06/06/20 05:24 Vital Signs Date Time Temp Pulse Resp B/P (MAP) Pulse Ox O2 Delivery O2 Flow Rate FiO2 06/06/20 14:00 99.5 88 20 112/67 (82) 95 Room Air I&O- Last 24 Hours up to 6 AM 06/06/20 05:59 Intake Total 150 ml Output Total 200 ml Balance -50 ml SARA BASURTO DO Jun 06, 2020 19:11
[2020-06-06 20:19] VITALS: BP 118/69
[2020-06-06] MEDS ORDERED: HumaLOG INSULIN (NovoLOG) PER UNIT SC SCH (21:00)
[2020-06-07 05:17] VITALS: BP 122/72
[2020-06-07 05:41] LABS: BASO # 0.1 10^3/uL (0.0-0.2); EOS # 0.3 10^3/uL (0.0-0.5); EOS % 4.8 % (0.0-3.0); HEMATOCRIT 38.3 % (36.0-47.0); HEMOGLOBIN 12.2 g/dl (12.0-15.5); LYMPH # 1.4 10^3/uL (1.5-5.0); LYMPH % 20.8 % (24.0-44.0); MEAN CORPUSCULAR HEMOGLOBIN 29.8 pg (27.0-33.0); MEAN CORPUSCULAR HGB CONC 31.9 g/dl (32.0-36.5); MEAN CORPUSCULAR VOLUME 93.4 fl (80.0-96.0); MONO # 0.7 10^3/uL (0.0-0.8); MONO % 10.1 % (2.0-8.0); NEUTROPHILS # 4.3 10^3/uL (1.5-8.5); PLATELET COUNT, AUTOMATED 246 10^3/uL (150-450); WHITE BLOOD COUNT 6.8 10^3/uL (4.0-10.0)
[2020-06-07 06:11] LABS: ALBUMIN 3.3 GM/DL (3.2-5.2); ALT/SGPT 27 U/L (12-78); BILIRUBIN,TOTAL 0.2 MG/DL (0.2-1.0); BLOOD UREA NITROGEN 11 MG/DL (7-18); CALCIUM LEVEL 8.1 MG/DL (8.5-10.1); CARBON DIOXIDE LEVEL 30 MEQ/L (21-32); CHLORIDE LEVEL 107 MEQ/L (98-107); CREATININE FOR GFR 0.62 MG/DL (0.55-1.30); GLOMERULAR FILTRATION RATE > 60.0 (>51); GLUCOSE, FASTING 86 MG/DL (70-100); MAGNESIUM LEVEL 2.2 MG/DL (1.8-2.4); SODIUM LEVEL 142 MEQ/L (136-145); TOTAL PROTEIN 5.9 GM/DL (6.4-8.2)
[2020-06-07] MEDS: HumaLOG INSULIN (NovoLOG) PER UNIT SC SCH ×2 (07:30→12:00)
[2020-06-07] MEDS ORDERED: SENOKOT S TAB PO SCH (09:00)
[2020-06-07] MEDS: ENOXAPARIN 40MG/0.4ML SYRINGE (J1650 PER 10MG) SC SCH ×2 (09:00→09:49)
[2020-06-07] MEDS ORDERED: POLYVINYL ALCOHOL OPHTH SOLN 15 ML(LIQUITEARS) OU PRN (09:25)
[2020-06-07] MEDS: MONTELUKAST 10 MG TAB PO SCH (09:45)
[2020-06-07 09:48] VITALS: BP 125/75
[2020-06-07] MEDS: OMEPRAZOLE 20 MG CAP PO SCH (09:48)
[2020-06-07] MEDS: methocarbamoL 750 MG TAB PO SCH (09:48)
[2020-06-07] MEDS: GABAPENTIN 400MG CAP PO SCH (09:48)
[2020-06-07] MEDS: ATORVASTATIN 10 MG TAB PO SCH (09:48)
[2020-06-07] MEDS: VERAPAMIL 120 MG SR TAB PO SCH (09:48)
[2020-06-07] MEDS: PRIMIDONE 50 MG TAB PO SCH (09:48)
[2020-06-07] MEDS: SODIUM CHLORIDE 0.9% INJ 10 ML SYR IV SCH (09:51)
[2020-06-07 14:30] VITALS: BP 126/75
--- NOTE | 2020-06-07 19:06 | DS.PDOC ---
Discharge Summary General Date of Admission Jun 05, 2020 at 22:00 Date of Discharge 06/07/2020 Discharge Summary PRIMARY CARE PHYSICIAN: Dr. Greg Tejeda MD ATTENDING AT TIME OF DISCHARGE: Dr. Sara Basurto, DISCHARGE DIAGNOS(E)S: Bilateral leg weakness, with recent admission for multiple sclerosis flare Multiple sclerosis Low back pain/sacral pain Asthma (not in acute exacerbation) Hypertension Hyperlipidemia HPI & HOSPITAL COURSE: The patient was recently admitted for multiple sclerosis flare, she was just discharged on 06/03/2020. During that admission she did have an MRI that showed stable demyelinating lesions, she did receive IV methylprednisone at that time. Upon her readmission this time it was felt that she did not need additional steroids. It was recommended that she go to the acute rehabilitation unit at her last discharge, but she preferred to go home with services. Apparently just a few days later she had not been showing improvement therefore is recommended that she return back to the hospital, and she was here awaiting admission to ARU, but this probably would not happen until Tuesday, she felt that waiting until that time was not necessary, and she would prefer to go home. I advised against this course of action given that she had only been home a few days after her last discharge. Nevertheless, she still wishes to go home, and is now leaving AGAINST MEDICAL ADVICE. She does have physical therapy set up for Tuesday at the home, it was certainly recommended that she should participate. PHYSICAL EXAMINATION ON DISCHARGE: GENERAL: Awake, alert, she is in no acute distress at this time. Otherwise, remainder of physical examination was not performed. DISPOSITION: She is going home AGAINST MEDICAL ADVICE DISCHARGE INSTRUCTIONS: Strongly recommend that she follow up with the home services rehabilitation on Tuesday, and follow-up with her PCP and neurologist within the week or so. If symptoms return, or if you experience worsening of your symptoms, please call your doctor or return to the emergency department. Vital Signs/I&Os Vital Signs Date Time Temp Pulse Resp B/P (MAP) Pulse Ox O2 Delivery O2 Flow Rate FiO2 06/07/20 14:30 98.7 91 18 126/75 (92) 96 Room Air I&O- Last 24 Hours up to 6 AM 06/07/20 06:00 Intake Total 1000 ml Output Total 1100 ml Balance -100 ml Laboratory Data Labs 24H Laboratory Tests 2 06/06/20 19:50: Bedside Glucose (Misc Panel) 118H 06/07/20 05:25: Immature Granulocyte % (Auto) 0.3, Neutrophils (%) (Auto) 63.0, Lymphocytes (%) (Auto) 20.8L, Monocytes (%) (Auto) 10.1H, Eosinophils (%) (Auto) 4.8H, Basophils (%) (Auto) 1.0, Neutrophils # (Auto) 4.3, Lymphocytes # (Auto) 1.4L, Monocytes # (Auto) 0.7, Eosinophils # (Auto) 0.3, Basophils # (Auto) 0.1, Nucleated Red Blood Cells % (auto) 0.0, Anion Gap 5L, Glomerular Filtration Rate > 60.0, Calcium Level 8.1L, Magnesium Level 2.2, Total Bilirubin 0.2, Aspartate Amino Transf (AST/SGOT) 12, Alanine Aminotransferase (ALT/SGPT) 27, Alkaline Phosphatase 139H, Total Protein 5.9L, Albumin 3.3, Albumin/Globulin Ratio 1.3 06/07/20 11:55: Bedside Glucose (Misc Panel) 83 CBC/BMP Laboratory Tests 06/07/20 05:25 FSBS Laboratory Tests Test 06/06/20 19:50 06/07/20 11:55 Range/Units Bedside Glucose (Misc Panel) 118 83 70-105 MG/DL Microbiology Microbiology 06/05/20 Respiratory Virus Panel (PCR) ([facility]) - Final, Complete Discharge Medications Scheduled Atorvastatin Calcium (Atorvastatin Calcium) 10 Mg Tab, 10 MG PO DAILY, (Reported) Dulaglutide (Trulicity) 0.75 Mg/0.5 Ml Pen.injctr, 0.75 MG SC QWEEK, (Reported) TUESDAY MORNING Ergocalciferol (Vitamin D2) (Vitamin D2) 50,000 Units Cap, 50,000 MG PO QWEEK, (Reported) TUESDAY MORNING Gabapentin (Gabapentin) 800 Mg Tablet, 800 MG PO TID, (Reported) Lisinopril (Lisinopril) 20 Mg Tab, 20 MG PO DAILY, (Reported) Methocarbamol (Methocarbamol) 750 Mg Tablet, 750 MG PO BID, (Reported) Montelukast Sodium (Montelukast Sodium) 10 Mg Tablet, 10 MG PO DAILY, (Reported) Omeprazole (Omeprazole) 20 Mg Capsule.dr, 20 MG PO DAILY, (Reported) Primidone (Primidone) 50 Mg Tablet, 50 MG PO BID, (Reported) Verapamil HCl (Verapamil Sr) 120 Mg Cap, 120 MG PO DAILY, (Reported) Scheduled PRN Acetaminophen (Tylenol Extra Strength) 500 Mg Tablet, 1,000 MG PO TID PRN for PAIN, (Reported) Oxycodone HCl/Acetaminophen (Percocet 7.5-325 mg Tablet) 1 Each Tablet, 1 TAB PO DAILY PRN for PAIN, (Reported) Allergies Coded Allergies: baclofen (Verified Allergy, Unknown, 12/07/19) fluticasone (Verified Allergy, Unknown, 12/07/19) morphine (Verified Allergy, Unknown, 12/07/19) SARA BASURTO DO Jun 07, 2020 19:06
== END 2020-06-07 16:20 | disposition left against medical advice (07) | DRG 861 ==
LOC: M ED 15:59 → M ED INP 22:00 → ENRESERV 23:21 → M MS5PR 06-06 00:37
PROVIDERS: ADMIT Family Medicine; ATTEND Neuromusculoskeletal Medicine & OMM
DX: R53.1 Weakness (principal); G35 Multiple sclerosis; I10 Essential (primary) hypertension; M53.3 Sacrococcygeal disorders, not elsewhere classified; M54.5 Low back pain; J45.909 Unspecified asthma, uncomplicated; E28.2 Polycystic ovarian syndrome; E11.9 Type 2 diabetes mellitus without complications; E78.5 Hyperlipidemia, unspecified; M79.7 Fibromyalgia; Z98.41 Cataract extraction status, right eye; Z98.42 Cataract extraction status, left eye; Z90.49 Acquired absence of other specified parts of digestive tract; Z90.79 Acquired absence of other genital organ(s); Z79.899 Other long term (current) drug therapy; Z88.6 Allergy status to analgesic agent; Z88.8 Allergy status to other drugs, medicaments and biological substances; R26.2 Difficulty in walking, not elsewhere classified

== ENCOUNTER → 2020-07-15 | Outpatient (REF) | payer OTHER ==
[~2020-07-15] MED LIST changes: +ACET-897 PO; +METH-1165 PO; +OMEP1CAP73 PO; +PERC7.5T11 PO
[2020-07-15 18:38] LABS: MALB URINE SIEMENS < 5.0 MG/L; MAU/CREAT RATIO 33.3 MCG/MG (0.0-30.0)
== END ==
LOC: M LAB REF 16:44
PROVIDERS: ATTEND Nurse Practitioner Family
DX: E11.65 Type 2 diabetes mellitus with hyperglycemia (principal)

== ENCOUNTER 2020-07-22 16:22 | Emergency (ER) | payer OTHER ==
[~2020-07-22] VITALS: Ht 162.6 cm; Wt 116.5 kg
[2020-07-22] MEDS ORDERED: METF-838 (16:35)
[2020-07-22] MEDS ORDERED: MEDR4PAK (16:35)
[2020-07-22] MEDS ORDERED: IBUP-351 (16:35)
[2020-07-22] MEDS ORDERED: diazePAM 10MG/2ML SYRINGE (J3360 PER 5MG) IV ONE (18:30)
[2020-07-22] MEDS ORDERED: diazePAM 10 MG TAB PO ONE (18:30)
[2020-07-22] MEDS ORDERED: KETOROLAC 30 MG/ML 1ML VIAL IV ONE (18:30)
[2020-07-22] MEDS ORDERED: KETOROLAC 60MG 2ML VIAL IM ONE (18:30)
[2020-07-22 19:02] LABS: BASO # 0.1 10^3/uL (0.0-0.2); BASO % 0.6 % (0.0-1.0); EOS % 0.2 % (0.0-3.0); HEMATOCRIT 40.1 % (36.0-47.0); HEMOGLOBIN 12.7 g/dl (12.0-15.5); LYMPH # 1.3 10^3/uL (1.5-5.0); LYMPH % 10.8 % (24.0-44.0); MEAN CORPUSCULAR HEMOGLOBIN 29.1 pg (27.0-33.0); MEAN CORPUSCULAR HGB CONC 31.7 g/dl (32.0-36.5); MONO # 0.8 10^3/uL (0.0-0.8); MONO % 6.5 % (2.0-8.0); NEUTROPHILS # 9.9 10^3/uL (1.5-8.5); NEUTROPHILS % 81.4 % (36.0-66.0); PLATELET COUNT, AUTOMATED 290 10^3/uL (150-450); RED BLOOD COUNT 4.36 10^6/uL (4.00-5.40); WHITE BLOOD COUNT 12.2 10^3/uL (4.0-10.0)
[2020-07-22 19:20] LABS: ERYTHROCYTE SEDIMENTATION RATE 10 mm/hr (0-30)
[2020-07-22] MEDS ORDERED: LIDOCAINE 5% (LIDODERM) PATCH TD ONE (20:15)
[2020-07-22] MEDS ORDERED: PERCOCET 5MG/325MG TAB PO ONE (20:15)
[2020-07-22 20:20] VITALS: BP 120/60
[2020-07-22] MEDS ORDERED: METH-1165 PO (20:20)
[2020-07-22] MEDS ORDERED: ASPE4PAD TOP (20:20)
--- NOTE | 2020-07-22 21:10 | ECGEPIP ---
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
[2020-07-23] MEDS ORDERED: **NOTE PATIENT COMMENT** MISC XX ONE (09:00)
== END 2020-07-22 20:49 | disposition home or self-care (01) ==
LOC: M ED 16:22
DX: M54.6 Pain in thoracic spine (principal); R00.1 Bradycardia, unspecified; E11.9 Type 2 diabetes mellitus without complications; E78.5 Hyperlipidemia, unspecified; I10 Essential (primary) hypertension; J44.9 Chronic obstructive pulmonary disease, unspecified; G35 Multiple sclerosis; M51.26 Other intervertebral disc displacement, lumbar region; Z86.711 Personal history of pulmonary embolism; Z79.899 Other long term (current) drug therapy; Z88.1 Allergy status to other antibiotic agents; Z88.5 Allergy status to narcotic agent; Z88.8 Allergy status to other drugs, medicaments and biological substances
CPT/HCPCS: 80047; 85025; 85652; 86140; 93005; 96374; 96375; 99284; J1885; J3360

== ENCOUNTER 2020-08-19 08:25 | Outpatient (CLI) | payer OTHER ==
[~2020-08-19] VITALS: Ht 162.6 cm; Wt 114.0 kg
[2020-08-19] VITALS (7 sets, daily range): BP systolic 119–137; BP diastolic 64–98
[~2020-08-19 08:25] MED LIST changes: +ASPE4PAD TOP; +IBUP-351; +MEDR4PAK; +METF-838
[2020-08-19] MEDS ORDERED: OCRELIZUMAB 600 MG in NS 500 ML IV ONE (08:30)
[2020-08-19] MEDS ORDERED: diphenhydrAMINE 25MG CAP PO ONE (08:30)
[2020-08-19] MEDS ORDERED: ACETAMINOPHEN TAB 650MG DOSE (2X325MG) PO ONE (08:30)
[2020-08-19] MEDS ORDERED: methylPREDNISolone 125MG 2ML VIAL IV ONE (08:30)
[2020-08-19] MEDS ORDERED: OCRE300I IV (10:46)
[2020-08-19] MEDS ORDERED: SODIUM CHLORIDE 0.9% INJ 10 ML SYR IV PRN (13:20)
[2020-08-20] MEDS ORDERED: SODIUM CHLORIDE 0.9% INJ 10 ML SYR IV SCH (09:00)
== END 2020-08-19 13:30 | disposition home or self-care (01) ==
LOC: M INFU 08:25
PROVIDERS: ATTEND Psychiatry & Neurology Neurology
DX: G35 Multiple sclerosis (principal)
CPT/HCPCS: 96413; 96415; 96523; J1642; J2350; J2930

== ENCOUNTER → 2020-08-28 | Outpatient (CLI) | payer OTHER ==
[~2020-08-28] MED LIST changes: +ERGO500029 PO; +OCRE300I IV; +OMEP40CA4 PO; -OMEP40CA97 PO; -OXYC1TAB15 PO; +OXYC7.5T3 PO; -VITA50005 PO
--- NOTE | 2020-08-28 11:00 | PFTRPT ---
Site: [facility], [address] [place] [address], [id number] ID: [id number] Name: DESIREE ATKINSON Visit Date: 08/28/2020 Second ID: [id number] Referring Doctor: Linwood Rodrigez MD Reviewing Doctor: Linwood Rodrigez MD Superintendent Electric Power: Murali GOEL, KRYSTAL Age: 49 : 1970 Sex: Female Race: Height: 64.00 Inches Weight: 255.00 Lbs BSA: 2.17 Order IDs: [id number] Requested Test(s): <RESP-PFT.PFT B/A> Diagnosis: R06.02 test meet the ATS standards for acceptability and repeatability. Pt was given four puffs of albuterol for post bronchodilator. Review Status: Not Reviewed Pre-Bronch Post-Bronch Pred Actual %Pred Actual %Chng SPIROMETRY FVC (L) 3.52 2.99 84 3.20 7 FEV1 (L) 2.79 2.35 84 2.57 9 FEV1/FVC (%) 80 79 98 80 2 FEF 25% (L/sec) 5.20 4.30 82 5.68 32 FEF 50% (L/sec) 3.90 2.37 60 3.32 40 FEF 75% (L/sec) 1.42 0.87 61 1.40 60 FEF 25-75% (L/sec) 2.73 2.07 75 2.90 40 FEF Max (L/sec) 6.71 5.79 86 6.10 5 FIVC (L) 2.80 3.22 14 FIF 50% (L/sec) 4.09 5.93 144 5.93 FIF Max (L/sec) 6.09 6.03 -1 MVV (L/min) 97 76 78 Expiratory Time (sec) 6.37 6.96 9 Back Extrap Vol (L) 0.11 0.12 7 Time To FEFmax (sec) 0.093 0.106 13 LUNG VOLUMES SVC (L) 3.25 3.41 104 IC (L) 2.22 3.24 145 ERV (L) 1.03 0.17 16 TGV (L) 2.83 2.34 82 RV (Pleth) (L) 1.80 2.17 120 TLC (Pleth) (L) 5.05 5.58 110 RV/TLC (Pleth) (%) 35 39 111 DIFFUSION DLCOunc (ml/min/mmHg) 22.64 21.92 96 DLCOcor (ml/min/mmHg) 22.64 22.35 98 DL/VA (ml/min/mmHg/L) 4.48 4.65 103 VA (L) 5.05 4.81 95 BHT (sec) 9.63 IVC (L) 3.13 TLC (SB) (L) 4.96 AIRWAYS RESISTANCE Raw (cmH2O/L/s) 1.86 1.01 54 Gaw (L/s/cmH2O) 1.03 1.00 97 sRaw (cmH2O*s) 4.76 2.61 54 sGaw (1/cmH2O*s) 0.20 0.38 192 BLOOD GASES Hgb (gm/dL) 12.8
== END ==
LOC: M CARPUL 10:21
PROVIDERS: ATTEND Internal Medicine Pulmonary Disease
DX: R06.02 Shortness of breath (principal)

== ENCOUNTER 2021-02-18 07:57 | Outpatient (CLI) | payer OTHER ==
[2021-02-18] VITALS (8 sets, daily range): BP systolic 133–146; BP diastolic 70–92
[~2021-02-18] VITALS: Ht 162.6 cm; Wt 110.5 kg
[~2021-02-18 07:57] MED LIST changes: -CEFD1CAP8 PO; +CEFD300C41 PO; -MONT10TA10 PO; +MONT10TA97 PO; -VERA120T4 PO; +VERA120T71 PO
[2021-02-18] MEDS ORDERED: OCRELIZUMAB 600 MG in NS 500 ML IV ONE (08:30)
[2021-02-18] MEDS ORDERED: diphenhydrAMINE 25MG CAP PO ONE (08:30)
[2021-02-18] MEDS ORDERED: methylPREDNISolone 125MG 2ML VIAL IV ONE (08:30)
[2021-02-18] MEDS ORDERED: ACETAMINOPHEN TAB 650MG DOSE (2X325MG) PO ONE (08:30)
[2021-02-18] MEDS ORDERED: SODIUM CHLORIDE 0.9% INJ 10 ML SYR IV PRN (12:30)
[2021-02-19] MEDS ORDERED: SODIUM CHLORIDE 0.9% INJ 10 ML SYR IV SCH (09:00)
== END 2021-02-18 12:45 | disposition home or self-care (01) ==
LOC: M INFU 07:57
PROVIDERS: ATTEND Psychiatry & Neurology Neurology
DX: G35 Multiple sclerosis (principal); Z88.6 Allergy status to analgesic agent; Z88.8 Allergy status to other drugs, medicaments and biological substances
CPT/HCPCS: 96365; 96366; 96375; J1642; J2350; J2930

== ENCOUNTER 2021-05-22 14:22 | Emergency (ER) | payer OTHER ==
[~2021-05-22] VITALS: Ht 162.6 cm; Wt 111.4 kg
[2021-05-22 15:29] LABS: HEMOGLOBIN 12.6 g/dl (12.0-15.5); MEAN CORPUSCULAR HEMOGLOBIN 28.8 pg (27.0-33.0); MEAN CORPUSCULAR HGB CONC 32.3 g/dl (32.0-36.5); MEAN CORPUSCULAR VOLUME 89.2 fl (80.0-96.0); PLATELET COUNT, AUTOMATED 289 10^3/uL (150-450); RED BLOOD COUNT 4.37 10^6/uL (4.00-5.40); WHITE BLOOD COUNT 7.5 10^3/uL (4.0-10.0)
[2021-05-22 15:57] LABS: BLOOD UREA NITROGEN 9 MG/DL (7-18); CALCIUM LEVEL 9.4 MG/DL (8.5-10.1); CARBON DIOXIDE LEVEL 26 MEQ/L (21-32); CHLORIDE LEVEL 108 MEQ/L (98-107); CREATININE FOR GFR 0.71 MG/DL (0.55-1.30); GLOMERULAR FILTRATION RATE > 60.0 (>51); GLUCOSE, FASTING 86 MG/DL (70-100); POTASSIUM SERUM 4.5 MEQ/L (3.5-5.1); SODIUM LEVEL 141 MEQ/L (136-145)
[2021-05-22 15:58] LABS: ALT/SGPT 32 U/L (12-78); BILIRUBIN,DIRECT < 0.1 MG/DL (0.0-0.2); BILIRUBIN,TOTAL 0.2 MG/DL (0.2-1.0); TOTAL PROTEIN 6.7 GM/DL (6.4-8.2)
[2021-05-22 16:02] LABS: ATYPICAL LYMPH 7 % (0-5); BASOPHILS 4 % (0-1); EOSINOPHILS 10 % (0-3); LYMPHOCYTES 14 % (16-44); MONOCYTES 8 % (0-5); NEUTROPHILS 55 % (28-66); PLATELET ESTIMATE NORMAL (NORMAL)
[2021-05-22 16:25] LABS: RSV AMPLIFICATION NEGATIVE (NEGATIVE)
[2021-05-22] MEDS ORDERED: PROHANCE 279.3MG/ML 5ML VIAL As Ordered ONE (16:30)
[2021-05-22] MEDS ORDERED: PROHANCE 279.3MG/ML 15ML VIAL As Ordered ONE (16:30)
[2021-05-22 19:02] VITALS: BP 133/67
== END 2021-05-22 19:05 | disposition home or self-care (01) ==
LOC: M ED 14:22
DX: R53.1 Weakness (principal); R52 Pain, unspecified; G35 Multiple sclerosis; M43.02 Spondylolysis, cervical region; M51.24 Other intervertebral disc displacement, thoracic region; E11.9 Type 2 diabetes mellitus without complications; E78.5 Hyperlipidemia, unspecified; I10 Essential (primary) hypertension; G47.33 Obstructive sleep apnea (adult) (pediatric); Z79.84 Long term (current) use of oral hypoglycemic drugs; Z79.899 Other long term (current) drug therapy
CPT/HCPCS: 36415; 70551; 72141; 72146; 80048; 80076; 85025; 87631; 93005; 99284; A9576

== ENCOUNTER → 2021-05-22 | Outpatient (CLI) | payer OTHER | LOC: M PAIN 13:00 | PROVIDERS: ATTEND Nurse Practitioner Family | DX: G35 Multiple sclerosis (principal); G89.29 Other chronic pain; I10 Essential (primary) hypertension; J45.909 Unspecified asthma, uncomplicated; J44.9 Chronic obstructive pulmonary disease, unspecified; M54.16 Radiculopathy, lumbar region; K21.9 Gastro-esophageal reflux disease without esophagitis; E11.9 Type 2 diabetes mellitus without complications; M54.2 Cervicalgia; N39.3 Stress incontinence (female) (male); M75.20 Bicipital tendinitis, unspecified shoulder; Z79.899 Other long term (current) drug therapy; Z79.891 Long term (current) use of opiate analgesic; Z88.5 Allergy status to narcotic agent; Z88.8 Allergy status to other drugs, medicaments and biological substances ==

== ENCOUNTER 2021-08-20 15:12 | Emergency (ER) | payer OTHER ==
[~2021-08-20] VITALS: Ht 162.6 cm; Wt 108.2 kg
[2021-08-20] MEDS ORDERED: AIMO70IN2 (15:30)
[2021-08-20] MEDS ORDERED: PRED20TA (15:30)
[2021-08-20] MEDS ORDERED: LISI10TA22 (15:30)
[2021-08-20] MEDS ORDERED: VERA40TA (15:30)
[2021-08-20 17:50] LABS: HEMATOCRIT 37.5 % (36.0-47.0); HEMOGLOBIN 12.4 g/dl (12.0-15.5); MEAN CORPUSCULAR HGB CONC 33.1 g/dl (32.0-36.5); MEAN CORPUSCULAR VOLUME 90.8 fl (80.0-96.0); PLATELET COUNT, AUTOMATED 299 10^3/uL (150-450); RED BLOOD COUNT 4.13 10^6/uL (4.00-5.40); WHITE BLOOD COUNT 16.4 10^3/uL (4.0-10.0)
[2021-08-20 18:16] LABS: BLOOD UREA NITROGEN 14 MG/DL (7-18); CALCIUM LEVEL 8.9 MG/DL (8.5-10.1); CARBON DIOXIDE LEVEL 30 MEQ/L (21-32); CHLORIDE LEVEL 107 MEQ/L (98-107); GLOMERULAR FILTRATION RATE > 60.0 (>51); GLUCOSE, FASTING 87 MG/DL (70-100); POTASSIUM SERUM 4.7 MEQ/L (3.5-5.1); SODIUM LEVEL 141 MEQ/L (136-145)
[2021-08-20 19:06] VITALS: BP 145/80
== END 2021-08-20 19:09 | disposition home or self-care (01) ==
LOC: M ED 15:12 → EDBD 15:12 → M ED 19:09
DX: R53.1 Weakness (principal); G35 Multiple sclerosis; I10 Essential (primary) hypertension; Z88.6 Allergy status to analgesic agent; Z79.811 Long term (current) use of aromatase inhibitors; Z79.899 Other long term (current) drug therapy

== ENCOUNTER 2021-08-26 08:21 | Outpatient (CLI) | payer OTHER ==
[~2021-08-26] VITALS: Ht 162.6 cm; Wt 108.2 kg
[2021-08-26 08:20] VITALS: BP 133/74
[~2021-08-26 08:21] MED LIST changes: +AIMO70IN2; +LISI10TA22; +PRED20TA; +VERA40TA
[2021-08-26] MEDS ORDERED: diphenhydrAMINE 25MG CAP PO ONE (08:30)
[2021-08-26] MEDS ORDERED: methylPREDNISolone 125MG 2ML VIAL IV ONE (08:30)
[2021-08-26] MEDS ORDERED: OCRELIZUMAB 600 MG in NS 500 ML IV ONE (08:30)
[2021-08-26] MEDS ORDERED: ACETAMINOPHEN TAB 650MG DOSE (2X325MG) PO ONE (08:30)
[2021-08-26] MEDS ORDERED: SODIUM CHLORIDE 0.9% INJ 10 ML SYR IV SCH (09:00)
[2021-08-26 09:45] VITALS: BP 115/58
[2021-08-26 10:15] VITALS: BP 122/72
[2021-08-26 10:45] VITALS: BP 123/66
[2021-08-26 11:15] VITALS: BP 122/62
[2021-08-26 13:30] VITALS: BP 130/72
== END 2021-08-26 13:30 | disposition home or self-care (01) ==
LOC: M INFU 08:21
PROVIDERS: ATTEND Psychiatry & Neurology Neurology
DX: G35 Multiple sclerosis (principal); Z88.8 Allergy status to other drugs, medicaments and biological substances
CPT/HCPCS: 96365; 96366; 96375; J1642; J2350; J2930

== ENCOUNTER → 2021-10-14 | Outpatient (REF) | payer OTHER ==
[2021-10-14 19:25] LABS: CREATININE, URINE < 13.0 MG/DL; MALB URINE SIEMENS < 5.0 MG/L
== END ==
LOC: M LAB REF 16:53
PROVIDERS: ATTEND Nurse Practitioner Family
DX: E11.65 Type 2 diabetes mellitus with hyperglycemia (principal)

== ENCOUNTER 2022-02-25 08:15 | Outpatient (CLI) | payer OTHER ==
[~2022-02-25] VITALS: Ht 162.6 cm; Wt 113.6 kg
[2022-02-25 08:30] VITALS: BP 138/75
[2022-02-25] MEDS ORDERED: methylPREDNISolone 125MG 2ML VIAL IV ONE (08:30)
[2022-02-25] MEDS ORDERED: OCRELIZUMAB 600 MG in NS 500 ML IV ONE (08:30)
[2022-02-25] MEDS ORDERED: ACETAMINOPHEN TAB 650MG DOSE (2X325MG) PO ONE (08:30)
[2022-02-25] MEDS ORDERED: diphenhydrAMINE 25MG CAP PO ONE (08:30)
[2022-02-25] MEDS ORDERED: SODIUM CHLORIDE 0.9% INJ 10 ML SYR IV SCH (09:00)
[2022-02-25] MEDS ORDERED: SODIUM CHLORIDE 0.9% INJ 10 ML SYR IV PRN (09:05)
[2022-02-25 09:45] VITALS: BP 128/65
[2022-02-25 10:15] VITALS: BP 113/67
[2022-02-25 11:15] VITALS: BP 131/68
[2022-02-25 12:15] VITALS: BP 128/69
[2022-02-25 13:15] VITALS: BP 134/70
== END 2022-02-25 13:25 | disposition home or self-care (01) ==
LOC: M INFU 08:15
PROVIDERS: ATTEND Psychiatry & Neurology Neurology
DX: G35 Multiple sclerosis (principal); Z88.5 Allergy status to narcotic agent; Z88.8 Allergy status to other drugs, medicaments and biological substances
CPT/HCPCS: 96365; 96366; 96375; J1642; J2350; J2930

== ENCOUNTER 2022-04-29 11:22 | Emergency (ER) | payer OTHER ==
[~2022-04-29] VITALS: Ht 162.6 cm; Wt 111.7 kg
[2022-04-29] MEDS ORDERED: diphenhydrAMINE 50MG/ML VIAL IV STA (12:19)
[2022-04-29] MEDS ORDERED: PROCHLORPERAZINE 10MG 2ML VIAL IV ONE (12:20)
[2022-04-29 12:47] LABS: BASO # 0.1 10^3/uL (0.0-0.2); BASO % 1.3 % (0.0-1.0); EOS # 0.2 10^3/uL (0.0-0.5); EOS % 3.9 % (0.0-3.0); HEMATOCRIT 39.9 % (36.0-47.0); HEMOGLOBIN 13.2 g/dl (12.0-15.5); LYMPH # 1.3 10^3/uL (1.5-5.0); LYMPH % 22.4 % (24.0-44.0); MEAN CORPUSCULAR HEMOGLOBIN 29.7 pg (27.0-33.0); MEAN CORPUSCULAR HGB CONC 33.1 g/dl (32.0-36.5); MEAN CORPUSCULAR VOLUME 89.7 fl (80.0-96.0); MONO # 0.8 10^3/uL (0.0-0.8); MONO % 12.6 % (2.0-8.0); NEUTROPHILS # 3.6 10^3/uL (1.5-8.5); NEUTROPHILS % 59.6 % (36.0-66.0); PLATELET COUNT, AUTOMATED 285 10^3/uL (150-450); RED BLOOD COUNT 4.45 10^6/uL (4.00-5.40)
[2022-04-29 13:13] LABS: ERYTHROCYTE SEDIMENTATION RATE 9 mm/hr (0-30)
[2022-04-29 13:15] LABS: ALBUMIN 4.1 G/DL (3.2-5.2); ALKALINE PHOSPHATASE 105 U/L (46-116); ALT/SGPT 21 U/L (7.0-40); AST/SGOT 18 U/L (<34); BILIRUBIN,TOTAL 0.2 MG/DL (0.3-1.2); BLOOD UREA NITROGEN 11 MG/DL (9-23); CALCIUM LEVEL 9.2 MG/DL (8.5-10.1); CARBON DIOXIDE LEVEL 30 MMOL/L (20-31); CHLORIDE LEVEL 106 MMOL/L (98-107); CREATININE FOR GFR 0.64 MG/DL (0.55-1.30); GLOMERULAR FILTRATION RATE > 60.0 (>51); GLUCOSE, FASTING 83 MG/DL (60-100); POTASSIUM SERUM 4.3 MMOL/L (3.5-5.1); SODIUM LEVEL 141 MMOL/L (136-145); TOTAL PROTEIN 6.6 G/DL (5.7-8.2)
[2022-04-29] MEDS ORDERED: ISOVUE-370 76% 100ML VIAL As Ordered ONE (13:21)
[2022-04-29 13:23] LABS: C REACTIVE PROTEIN QUANTITATIV < 0.40 MG/DL (<1.0)
[2022-04-29 14:34] VITALS: BP 139/73
== END 2022-04-29 14:43 | disposition home or self-care (01) ==
LOC: M ED 11:22
DX: R51.9 Headache, unspecified (principal); E11.9 Type 2 diabetes mellitus without complications; G43.909 Migraine, unspecified, not intractable, without status migrainosus; E78.00 Pure hypercholesterolemia, unspecified; K21.9 Gastro-esophageal reflux disease without esophagitis; J44.9 Chronic obstructive pulmonary disease, unspecified; K57.32 Diverticulitis of large intestine without perforation or abscess without bleeding; G35 Multiple sclerosis; Z86.711 Personal history of pulmonary embolism; Z79.84 Long term (current) use of oral hypoglycemic drugs; Z79.899 Other long term (current) drug therapy; Z88.1 Allergy status to other antibiotic agents; Z88.5 Allergy status to narcotic agent; Z88.8 Allergy status to other drugs, medicaments and biological substances
CPT/HCPCS: 70450; 70496; 70498; 80053; 82375; 85025; 85652; 86140; 86618; 96374; 96375; 99283; J0780; J1200

== ENCOUNTER 2022-08-26 09:10 | Outpatient (CLI) | payer OTHER ==
[~2022-08-26] VITALS: Ht 162.6 cm; Wt 113.6 kg
[~2022-08-26 09:10] MED LIST changes: +ACETAMINOPHEN TAB 650MG DOSE (2X325MG) PO ONE; +OCRELIZUMAB 600 MG in NS 500 ML IV ONE; +diphenhydrAMINE 25MG CAP PO ONE; +methylPREDNISolone 125MG 2ML VIAL IV ONE
[2022-08-26] MEDS ORDERED: SODIUM CHLORIDE 0.9% INJ 10 ML SYR IV PRN (09:25)
[2022-08-26 09:30] VITALS: BP 142/78; O2SAT 95
[2022-08-26 10:30] VITALS: BP 120/65; O2SAT 100
[2022-08-26 11:00] VITALS: BP 120/63; O2SAT 97
[2022-08-26 11:30] VITALS: BP 105/64; O2SAT 97
[2022-08-26 12:30] VITALS: BP 122/61; O2SAT 97
[2022-08-26 13:30] VITALS: BP 112/61; O2SAT 100
== END 2022-08-26 14:00 ==
LOC: EDBD → M INFU 09:10
PROVIDERS: ATTEND Psychiatry & Neurology Neurology
DX: G35 Multiple sclerosis (principal); Z88.5 Allergy status to narcotic agent; Z88.8 Allergy status to other drugs, medicaments and biological substances; Z88.1 Allergy status to other antibiotic agents
CPT/HCPCS: 96365; 96366; 96375; 96523; J2350; J2930

== ENCOUNTER 2023-02-06 11:29 | Inpatient (IN) | payer OTHER ==
[~2023-02-06] VITALS: Ht 162.6 cm; Wt 95.6 kg
[~2023-02-06 11:29] MED LIST changes: -ACETAMINOPHEN TAB 650MG DOSE (2X325MG) PO ONE; -AIMO70IN2; +AIMO70IN2 INJ; +CEFD1CAP9 PO; -CEFD300C41 PO; +GLIP5TAB17 PO; -GLIP5TAB8 PO; -LISI10TA22; -METF-838; +METF-838 PO; -OCRELIZUMAB 600 MG in NS 500 ML IV ONE; -VERA40TA; +VERA40TA PO; +[UNRECOGNIZED DRUG - REMARK]; -diphenhydrAMINE 25MG CAP PO ONE; -methylPREDNISolone 125MG 2ML VIAL IV ONE
[2023-02-06 12:40] LABS: VENOUS HCO3 26.4 MMOL/L (23.0-27.0); VENOUS PARTIAL PRESSURE CO2 46.3 mmHg (38.0-50.0); VENOUS PARTIAL PRESSURE O2 43.8 mmHg (30.0-50.0); VENOUS PH 7.374 UNITS (7.330-7.430); VENOUS TOTAL CO2 27.8 MMOL/L (24.0-28.0)
[2023-02-06 12:41] LABS: VENOUS BASE EXCESS 0.8 (-2.0-2.0); VENOUS O2 SATURATION 79.5 % (60.0-80.0); VENOUS STANDARD HCO3 24.9 MMOL/L
[2023-02-06 12:50] LABS: BASO % 0.2 % (0.0-1.0); HEMOGLOBIN 10.4 g/dl (12.0-15.5); LYMPH # 0.3 10^3/uL (1.5-5.0); LYMPH % 4.5 % (24.0-44.0); MEAN CORPUSCULAR HEMOGLOBIN 28.7 pg (27.0-33.0); MEAN CORPUSCULAR HGB CONC 32.5 g/dl (32.0-36.5); MEAN CORPUSCULAR VOLUME 88.4 fl (80.0-96.0); MONO # 0.2 10^3/uL (0.0-0.8); MONO % 2.6 % (2.0-8.0); NEUTROPHILS % 91.9 % (36.0-66.0); PLATELET COUNT, AUTOMATED 265 10^3/uL (150-450); RED BLOOD COUNT 3.62 10^6/uL (4.00-5.40); WHITE BLOOD COUNT 6.5 10^3/uL (4.0-10.0)
[2023-02-06 13:11] LABS: INR 1.1; PROTHROMBIN TIME 13.9 SECONDS (12.5-14.5)
[2023-02-06 13:16] LABS: CK-MB VALUE MASS < 1.0 NG/ML (<3.6)
[2023-02-06 13:18] LABS: ALBUMIN 2.8 G/DL (3.2-5.2); ALKALINE PHOSPHATASE 100 U/L (46-116); ALT/SGPT 19 U/L (7.0-40); AST/SGOT 14 U/L (<34); BILIRUBIN,DIRECT 0.1 MG/DL (<0.4); BILIRUBIN,TOTAL 0.3 MG/DL (0.3-1.2); BLOOD UREA NITROGEN 14 MG/DL (9-23); CARBON DIOXIDE LEVEL 26 MMOL/L (20-31); CHLORIDE LEVEL 103 MMOL/L (98-107); CPK CREATINE PHOSPHOKINASE 31 U/L (34-145); CREATININE FOR GFR 0.76 MG/DL (0.55-1.30); GLOMERULAR FILTRATION RATE > 60.0 (>51); GLUCOSE, FASTING 124 MG/DL (60-100); MB/CK RELATIVE INDEX 3.22 (< OR =4); POTASSIUM SERUM 3.9 MMOL/L (3.5-5.1); SODIUM LEVEL 138 MMOL/L (136-145); TOTAL PROTEIN 5.6 G/DL (5.7-8.2)
[2023-02-06 13:19] LABS: THYROID STIMULATING HORMONE 0.832 uIU/ML (0.55-4.78)
[2023-02-06 13:25] LABS: PROCALCITONIN 0.08 ng/ml
[2023-02-06 15:11] LABS: CK-MB VALUE MASS < 1.0 NG/ML (<3.6)
[2023-02-06 15:12] LABS: CPK CREATINE PHOSPHOKINASE 28 U/L (34-145); MB/CK RELATIVE INDEX 3.57 (< OR =4)
[2023-02-06] MEDS ORDERED: ISOVUE-370 76% 100ML VIAL As Ordered ONE (15:35)
[2023-02-06] MEDS ORDERED: BISACODYL 10MG SUPP PR PRN (18:25)
[2023-02-06] MEDS ORDERED: BISACODYL 10MG SUPP PR ONE (18:25)
[2023-02-06] MEDS ORDERED: GLUCAGON INJ 1MG VIAL SC PRN (19:05)
[2023-02-06] MEDS ORDERED: GLUCOSE 4GM CHEW TABLET PO PRN (19:05)
[2023-02-06] MEDS ORDERED: DEXTROSE 50% 50ML SYRINGE IV PRN (19:05)
[2023-02-06] MEDS: COMBIVENT RESPIMAT 100-20MCG INHALER 4GM INH SCH ×2 (19:28→23:57)
[2023-02-06] MEDS ORDERED: traZODone 25MG PER 1/2 TABLET PO PRN (19:55)
[2023-02-06] MEDS ORDERED: PRED10TA2 PO (20:14)
[2023-02-06] MEDS ORDERED: LEVO1TAB40 PO (20:14)
[2023-02-06] MEDS ORDERED: ASPI81TA26 PO (20:14)
[2023-02-06] MEDS ORDERED: HOME MED LIST COMPLETE! XX SCH (20:15)
[2023-02-06 20:33] VITALS: BP 108/64; TEMP 97.3; O2SAT 94
[2023-02-06] MEDS: INSULIN LISPRO (NovoLOG) PER UNIT SC SCH (21:00)
[2023-02-06] MEDS: VERAPAMIL 40 MG TAB PO SCH (21:00)
[2023-02-06] MEDS: DOCUSATE SODIUM 100MG CAPSULE PO SCH (21:19)
[2023-02-06] MEDS: MIRALAX *UNIT DOSE* 17GM PACKET PO SCH (21:19)
[2023-02-06] MEDS: SENNA 8.6 MG TAB (SENOKOT) PO SCH (21:19)
[2023-02-07] VITALS (7 sets, daily range): BP systolic 110–129; BP diastolic 63–69; TEMP 97.3–102.2; O2SAT 93–95
[2023-02-07] MEDS: GABAPENTIN 400MG CAP PO SCH ×4 (00:18→22:03)
[2023-02-07] MEDS: methocarbamoL 750 MG TAB PO SCH ×3 (00:18→22:02)
[2023-02-07] MEDS: PRIMIDONE 50MG TAB PO SCH ×3 (00:18→22:03)
[2023-02-07] MEDS: COMBIVENT RESPIMAT 100-20MCG INHALER 4GM INH SCH ×2 (03:08→07:16)
[2023-02-07 06:06] LABS: BASO % 0.2 % (0.0-1.0); HEMATOCRIT 32.1 % (36.0-47.0); HEMOGLOBIN 10.3 g/dl (12.0-15.5); LYMPH # 0.5 10^3/uL (1.5-5.0); LYMPH % 9.7 % (24.0-44.0); MEAN CORPUSCULAR HEMOGLOBIN 28.2 pg (27.0-33.0); MEAN CORPUSCULAR HGB CONC 32.1 g/dl (32.0-36.5); MEAN CORPUSCULAR VOLUME 87.9 fl (80.0-96.0); MONO # 0.3 10^3/uL (0.0-0.8); MONO % 5.7 % (2.0-8.0); NEUTROPHILS # 4.3 10^3/uL (1.5-8.5); NEUTROPHILS % 83.8 % (36.0-66.0); PLATELET COUNT, AUTOMATED 285 10^3/uL (150-450); RED BLOOD COUNT 3.65 10^6/uL (4.00-5.40); WHITE BLOOD COUNT 5.1 10^3/uL (4.0-10.0)
[2023-02-07 06:25] LABS: BLOOD UREA NITROGEN 18 MG/DL (9-23); CALCIUM LEVEL 9.1 MG/DL (8.5-10.1); CARBON DIOXIDE LEVEL 27 MMOL/L (20-31); CHLORIDE LEVEL 103 MMOL/L (98-107); CREATININE FOR GFR 0.64 MG/DL (0.55-1.30); GLOMERULAR FILTRATION RATE > 60.0 (>51); GLUCOSE, FASTING 90 MG/DL (60-100); POTASSIUM SERUM 4.4 MMOL/L (3.5-5.1); SODIUM LEVEL 139 MMOL/L (136-145)
[2023-02-07] MEDS: INSULIN LISPRO (NovoLOG) PER UNIT SC SCH ×4 (07:30→21:00)
[2023-02-07] MEDS: IPRATROPIUM 0.5MG/ALBUTEROL 2.5MG INH SOL UD 3ML (DUONEB) NEB SCH ×2 (08:00→20:14)
[2023-02-07] MEDS: MIRALAX *UNIT DOSE* 17GM PACKET PO SCH ×3 (08:55→21:00)
[2023-02-07] MEDS: ENOXAPARIN 40MG/0.4ML SYRINGE (J1650 PER 10MG) SC SCH ×2 (08:55→09:00)
[2023-02-07] MEDS: DOCUSATE SODIUM 100MG CAPSULE PO SCH ×2 (08:56→22:03)
[2023-02-07] MEDS: ATORVASTATIN 10 MG TAB PO SCH (08:56)
[2023-02-07] MEDS: MONTELUKAST 10 MG TAB PO SCH (08:56)
[2023-02-07] MEDS: SENNA 8.6 MG TAB (SENOKOT) PO SCH ×2 (08:56→22:02)
[2023-02-07] MEDS: ASPIRIN 81MG ENTERIC TABLET PO SCH (08:56)
[2023-02-07] MEDS: VERAPAMIL 40 MG TAB PO SCH ×2 (08:58→22:02)
[2023-02-07] MEDS: ACETAMINOPHEN TAB 650MG DOSE (2X325MG) PO PRN ×2 (09:41→16:54)
[2023-02-07] MEDS: IBUPROFEN 600MG TAB PO PRN (11:59)
[2023-02-07] MEDS ORDERED: LevoFLOXacin IV 750 MG in IV 1 EA IV SCH (13:00)
[2023-02-08] VITALS (10 sets, daily range): BP systolic 90–140; BP diastolic 40–90; TEMP 98.6–103.4; O2SAT 91–94
[2023-02-08] MEDS: IPRATROPIUM 0.5MG/ALBUTEROL 2.5MG INH SOL UD 3ML (DUONEB) NEB PRN (05:11)
[2023-02-08] MEDS: ACETAMINOPHEN TAB 650MG DOSE (2X325MG) PO PRN ×2 (05:30→13:53)
[2023-02-08 05:46] LABS: EOS % 0.2 % (0.0-3.0); HEMATOCRIT 32.1 % (36.0-47.0); HEMOGLOBIN 10.4 g/dl (12.0-15.5); LYMPH # 0.5 10^3/uL (1.5-5.0); LYMPH % 8.2 % (24.0-44.0); MEAN CORPUSCULAR HEMOGLOBIN 28.1 pg (27.0-33.0); MEAN CORPUSCULAR HGB CONC 32.4 g/dl (32.0-36.5); MEAN CORPUSCULAR VOLUME 86.8 fl (80.0-96.0); MONO # 0.3 10^3/uL (0.0-0.8); MONO % 4.6 % (2.0-8.0); NEUTROPHILS % 86.7 % (36.0-66.0); PLATELET COUNT, AUTOMATED 289 10^3/uL (150-450); WHITE BLOOD COUNT 5.8 10^3/uL (4.0-10.0)
[2023-02-08 06:16] LABS: BLOOD UREA NITROGEN 19 MG/DL (9-23); CALCIUM LEVEL 8.4 MG/DL (8.5-10.1); CARBON DIOXIDE LEVEL 28 MMOL/L (20-31); CHLORIDE LEVEL 101 MMOL/L (98-107); CREATININE FOR GFR 0.78 MG/DL (0.55-1.30); GLOMERULAR FILTRATION RATE > 60.0 (>51); GLUCOSE, FASTING 79 MG/DL (60-100); POTASSIUM SERUM 4.4 MMOL/L (3.5-5.1); SODIUM LEVEL 137 MMOL/L (136-145)
[2023-02-08 06:19] LABS: PROCALCITONIN 0.06 ng/ml
[2023-02-08] MEDS: IBUPROFEN 600MG TAB PO PRN (06:55)
[2023-02-08] MEDS: IPRATROPIUM 0.5MG/ALBUTEROL 2.5MG INH SOL UD 3ML (DUONEB) NEB SCH ×2 (07:16→19:39)
[2023-02-08] MEDS: INSULIN LISPRO (NovoLOG) PER UNIT SC SCH ×4 (07:30→21:00)
[2023-02-08] MEDS ORDERED: ISOVUE-370 76% 100ML VIAL As Ordered ONE (08:15)
[2023-02-08 08:39] LABS: ERYTHROCYTE SEDIMENTATION RATE 70 mm/hr (0-30)
[2023-02-08] MEDS: PIPERACILLIN/TAZOBACTAM SOD 4.5 GM in D5W MINI-BAG PLUS 50 ML IV SCH ×3 (08:50→20:24)
[2023-02-08] MEDS: ATORVASTATIN 10 MG TAB PO SCH (08:53)
[2023-02-08] MEDS: GABAPENTIN 400MG CAP PO SCH ×3 (08:53→20:26)
[2023-02-08] MEDS: DOCUSATE SODIUM 100MG CAPSULE PO SCH ×2 (08:53→20:26)
[2023-02-08] MEDS: methocarbamoL 750 MG TAB PO SCH ×2 (08:53→21:17)
[2023-02-08] MEDS: PRIMIDONE 50MG TAB PO SCH ×2 (08:53→21:17)
[2023-02-08] MEDS: MONTELUKAST 10 MG TAB PO SCH (08:53)
[2023-02-08] MEDS: ASPIRIN 81MG ENTERIC TABLET PO SCH (08:53)
[2023-02-08] MEDS: MIRALAX *UNIT DOSE* 17GM PACKET PO SCH ×2 (08:53→20:25)
[2023-02-08] MEDS: SENNA 8.6 MG TAB (SENOKOT) PO SCH ×2 (08:53→20:25)
[2023-02-08] MEDS: VERAPAMIL 40 MG TAB PO SCH (08:53)
[2023-02-08] MEDS ORDERED: PROMETHAZINE 25MG/ML 1ML VIAL IV PRN (08:55)
[2023-02-08] MEDS: ENOXAPARIN 40MG/0.4ML SYRINGE (J1650 PER 10MG) SC SCH (09:00)
[2023-02-08] MEDS: methylPREDNISolone 125MG 2ML VIAL IV SCH ×2 (10:15→20:33)
[2023-02-08] MEDS ORDERED: NS 1,000 ML IV STA (14:57)
[2023-02-08] MEDS: SODIUM CHLORIDE 0.9% INJ 10 ML SYR IV SCH (15:12)
[2023-02-08] MEDS: BUDESONIDE 0.5 MG/2 ML INHALATION SUSPENSION INH SCH ×2 (15:27→19:39)
[2023-02-08 16:09] LABS: MYCOPLASMA PNEUMONIAE IgG <100 U/mL (0-99); MYCOPLASMA PNEUMONIAE IgM <770 U/mL (0-769)
[2023-02-09] MEDS: PIPERACILLIN/TAZOBACTAM SOD 4.5 GM in D5W MINI-BAG PLUS 50 ML IV SCH ×4 (01:39→21:06)
[2023-02-09] MEDS: IBUPROFEN 600MG TAB PO PRN (05:41)
[2023-02-09 06:00] VITALS: BP 128/69; TEMP 100.3; O2SAT 95
[2023-02-09 06:13] LABS: BLOOD UREA NITROGEN 12 MG/DL (9-23); CALCIUM LEVEL 8.2 MG/DL (8.5-10.1); CARBON DIOXIDE LEVEL 25 MMOL/L (20-31); CHLORIDE LEVEL 106 MMOL/L (98-107); CREATININE FOR GFR 0.56 MG/DL (0.55-1.30); GLOMERULAR FILTRATION RATE > 60.0 (>51); GLUCOSE, FASTING 108 MG/DL (60-100); POTASSIUM SERUM 4.5 MMOL/L (3.5-5.1); SODIUM LEVEL 139 MMOL/L (136-145)
[2023-02-09] MEDS: IPRATROPIUM 0.5MG/ALBUTEROL 2.5MG INH SOL UD 3ML (DUONEB) NEB SCH ×2 (07:13→19:39)
[2023-02-09] MEDS: BUDESONIDE 0.5 MG/2 ML INHALATION SUSPENSION INH SCH (07:13)
[2023-02-09] MEDS: DOCUSATE SODIUM 100MG CAPSULE PO SCH ×2 (09:00→21:00)
[2023-02-09] MEDS: ENOXAPARIN 40MG/0.4ML SYRINGE (J1650 PER 10MG) SC SCH (09:00)
[2023-02-09] MEDS: SENNA 8.6 MG TAB (SENOKOT) PO SCH ×2 (09:00→21:00)
[2023-02-09] MEDS: MIRALAX *UNIT DOSE* 17GM PACKET PO SCH ×2 (09:00→21:06)
[2023-02-09] MEDS: methylPREDNISolone 125MG 2ML VIAL IV SCH ×2 (09:40→21:05)
[2023-02-09] MEDS: SODIUM CHLORIDE 0.9% INJ 10 ML SYR IV SCH (09:40)
[2023-02-09] MEDS: INSULIN LISPRO (NovoLOG) PER UNIT SC SCH ×4 (09:40→21:00)
[2023-02-09 09:41] VITALS: TEMP 98.8
[2023-02-09] MEDS: ATORVASTATIN 10 MG TAB PO SCH (09:41)
[2023-02-09] MEDS: MONTELUKAST 10 MG TAB PO SCH (09:41)
[2023-02-09] MEDS: ASPIRIN 81MG ENTERIC TABLET PO SCH (09:41)
[2023-02-09] MEDS: PRIMIDONE 50MG TAB PO SCH ×2 (09:41→21:06)
[2023-02-09] MEDS: methocarbamoL 750 MG TAB PO SCH ×2 (09:41→21:07)
[2023-02-09] MEDS: GABAPENTIN 400MG CAP PO SCH ×3 (09:41→21:06)
[2023-02-09 14:00] VITALS: BP 124/69; TEMP 98.7; O2SAT 97
[2023-02-09] MEDS: SODIUM CHLORIDE 0.9% INJ 10 ML SYR IV PRN (14:47)
[2023-02-09 14:52] VITALS: O2SAT 96
[2023-02-09] MEDS: IPRATROPIUM 0.5MG/ALBUTEROL 2.5MG INH SOL UD 3ML (DUONEB) NEB PRN (17:04)
[2023-02-09] MEDS: BUDESONIDE 0.25 MG/2 ML INHALATION SUSPENSION INH SCH (19:39)
[2023-02-09 19:40] VITALS: O2SAT 96
[2023-02-09 20:30] VITALS: BP 132/77; TEMP 100; O2SAT 95
[2023-02-10] MEDS: PIPERACILLIN/TAZOBACTAM SOD 4.5 GM in D5W MINI-BAG PLUS 50 ML IV SCH ×4 (02:07→20:19)
[2023-02-10] MEDS: SODIUM CHLORIDE 0.9% INJ 10 ML SYR IV PRN ×3 (02:09→20:21)
[2023-02-10 05:10] VITALS: BP 142/90; TEMP 98.6; O2SAT 95
[2023-02-10] MEDS: IPRATROPIUM 0.5MG/ALBUTEROL 2.5MG INH SOL UD 3ML (DUONEB) NEB SCH ×2 (07:25→22:18)
[2023-02-10] MEDS: BUDESONIDE 0.25 MG/2 ML INHALATION SUSPENSION INH SCH ×2 (07:25→22:18)
[2023-02-10] MEDS: MIRALAX *UNIT DOSE* 17GM PACKET PO SCH ×2 (07:43→20:20)
[2023-02-10] MEDS: DOCUSATE SODIUM 100MG CAPSULE PO SCH ×2 (07:43→21:00)
[2023-02-10] MEDS: SENNA 8.6 MG TAB (SENOKOT) PO SCH ×2 (07:43→20:22)
[2023-02-10] MEDS: ENOXAPARIN 40MG/0.4ML SYRINGE (J1650 PER 10MG) SC SCH (08:51)
[2023-02-10] MEDS: methylPREDNISolone 125MG 2ML VIAL IV SCH ×2 (09:02→20:20)
[2023-02-10] MEDS: SODIUM CHLORIDE 0.9% INJ 10 ML SYR IV SCH (09:03)
[2023-02-10] MEDS: INSULIN LISPRO (NovoLOG) PER UNIT SC SCH ×4 (09:03→21:00)
[2023-02-10 09:04] VITALS: TEMP 101.8
[2023-02-10] MEDS: MONTELUKAST 10 MG TAB PO SCH (09:04)
[2023-02-10] MEDS: ASPIRIN 81MG ENTERIC TABLET PO SCH (09:04)
[2023-02-10] MEDS: methocarbamoL 750 MG TAB PO SCH ×2 (09:04→20:20)
[2023-02-10] MEDS: ATORVASTATIN 10 MG TAB PO SCH (09:04)
[2023-02-10] MEDS: PRIMIDONE 50MG TAB PO SCH ×2 (09:04→20:22)
[2023-02-10] MEDS: ACETAMINOPHEN TAB 650MG DOSE (2X325MG) PO PRN ×2 (09:04→16:09)
[2023-02-10] MEDS: GABAPENTIN 400MG CAP PO SCH ×3 (09:04→20:20)
[2023-02-10] MEDS ORDERED: ONDANSETRON 4MG 2ML VIAL IV PRN (10:25)
[2023-02-10 10:39] VITALS: TEMP 100.8
[2023-02-10] MEDS ORDERED: REMDESIVIR 200 MG in NS 250 ML IV ONE (13:00)
[2023-02-10 14:00] VITALS: BP 116/53; TEMP 99.1; O2SAT 91
[2023-02-10] MEDS: IPRATROPIUM 0.5MG/ALBUTEROL 2.5MG INH SOL UD 3ML (DUONEB) NEB PRN (15:17)
[2023-02-10 20:45] VITALS: BP 139/80; TEMP 99.8; O2SAT 91
[2023-02-11] MEDS: PIPERACILLIN/TAZOBACTAM SOD 4.5 GM in D5W MINI-BAG PLUS 50 ML IV SCH ×4 (02:01→21:15)
[2023-02-11 02:12] VITALS: BP 119/56; TEMP 100.3; O2SAT 91
[2023-02-11 06:02] VITALS: BP 134/79; TEMP 99.7; O2SAT 91
[2023-02-11 06:10] LABS: BLOOD UREA NITROGEN 12 MG/DL (9-23); CALCIUM LEVEL 8.1 MG/DL (8.5-10.1); CARBON DIOXIDE LEVEL 29 MMOL/L (20-31); CHLORIDE LEVEL 98 MMOL/L (98-107); CREATININE FOR GFR 0.59 MG/DL (0.55-1.30); GLOMERULAR FILTRATION RATE > 60.0 (>51); GLUCOSE, FASTING 95 MG/DL (60-100); POTASSIUM SERUM 4.5 MMOL/L (3.5-5.1); SODIUM LEVEL 134 MMOL/L (136-145)
[2023-02-11] MEDS: IPRATROPIUM 0.5MG/ALBUTEROL 2.5MG INH SOL UD 3ML (DUONEB) NEB SCH ×2 (07:10→20:00)
[2023-02-11] MEDS: BUDESONIDE 0.25 MG/2 ML INHALATION SUSPENSION INH SCH ×2 (07:10→20:00)
[2023-02-11] MEDS: INSULIN LISPRO (NovoLOG) PER UNIT SC SCH ×4 (07:30→21:00)
[2023-02-11] MEDS: methocarbamoL 750 MG TAB PO SCH ×2 (08:09→21:00)
[2023-02-11] MEDS: GABAPENTIN 400MG CAP PO SCH ×3 (08:09→21:00)
[2023-02-11] MEDS: ASPIRIN 81MG ENTERIC TABLET PO SCH (08:09)
[2023-02-11] MEDS: ATORVASTATIN 10 MG TAB PO SCH (08:09)
[2023-02-11] MEDS: MONTELUKAST 10 MG TAB PO SCH (08:09)
[2023-02-11] MEDS: methylPREDNISolone 125MG 2ML VIAL IV SCH ×2 (08:09→21:00)
[2023-02-11] MEDS: PRIMIDONE 50MG TAB PO SCH ×2 (08:09→21:00)
[2023-02-11] MEDS: DOCUSATE SODIUM 100MG CAPSULE PO SCH ×2 (08:10→21:00)
[2023-02-11] MEDS: MIRALAX *UNIT DOSE* 17GM PACKET PO SCH ×2 (08:10→21:00)
[2023-02-11] MEDS: SENNA 8.6 MG TAB (SENOKOT) PO SCH ×2 (08:10→21:00)
[2023-02-11] MEDS: ENOXAPARIN 40MG/0.4ML SYRINGE (J1650 PER 10MG) SC SCH (08:10)
[2023-02-11] MEDS: SODIUM CHLORIDE 0.9% INJ 10 ML SYR IV SCH (08:11)
[2023-02-11] MEDS ORDERED: guaiFENesin SYRUP 200MG 10ML UDC PO ONE (09:00)
[2023-02-11] MEDS: REMDESIVIR 100 MG in NS 250 ML IV SCH (12:53)
[2023-02-11 14:00] VITALS: BP 118/60; TEMP 99; O2SAT 94
[2023-02-11 14:08] LABS: BODY FLUID CULTURE Not indicated. (.); LEGIONELLA ANTIGEN URINE Negative (Negative); ORGANISM ID Not indicated. (.); SPECIMEN SOURCE Urine (.); URINE STREP PNEUMONIAE ANTIGEN Negative (Negative)
[2023-02-11 14:08] LABS: BODY FLUID CULTURE Not indicated. (.); ORGANISM ID Not indicated. (.); SPECIMEN SOURCE Urine (.); URINE STREP PNEUMONIAE ANTIGEN Negative (Negative)
[2023-02-11] MEDS: IPRATROPIUM 0.5MG/ALBUTEROL 2.5MG INH SOL UD 3ML (DUONEB) NEB PRN (14:28)
[2023-02-11] MEDS ORDERED: FAMOTIDINE 20 MG TAB PO SCH (21:00)
[2023-02-11 21:43] VITALS: BP 118/61; TEMP 98.4; O2SAT 96
[2023-02-12] MEDS: PIPERACILLIN/TAZOBACTAM SOD 4.5 GM in D5W MINI-BAG PLUS 50 ML IV SCH ×2 (03:12→08:41)
[2023-02-12] MEDS: BUDESONIDE 0.25 MG/2 ML INHALATION SUSPENSION INH SCH ×2 (05:16→18:15)
[2023-02-12 05:50] VITALS: BP 119/66; TEMP 98.2; O2SAT 92
[2023-02-12 06:09] LABS: BLOOD UREA NITROGEN 15 MG/DL (9-23); CARBON DIOXIDE LEVEL 28 MMOL/L (20-31); CHLORIDE LEVEL 101 MMOL/L (98-107); CREATININE FOR GFR 0.57 MG/DL (0.55-1.30); GLOMERULAR FILTRATION RATE > 60.0 (>51); GLUCOSE, FASTING 127 MG/DL (60-100); POTASSIUM SERUM 4.8 MMOL/L (3.5-5.1); SODIUM LEVEL 138 MMOL/L (136-145)
[2023-02-12] MEDS: INSULIN LISPRO (NovoLOG) PER UNIT SC SCH ×4 (08:42→21:00)
[2023-02-12] MEDS: methocarbamoL 750 MG TAB PO SCH ×2 (08:42→21:00)
[2023-02-12] MEDS: ASPIRIN 81MG ENTERIC TABLET PO SCH (08:42)
[2023-02-12] MEDS: methylPREDNISolone 125MG 2ML VIAL IV SCH (08:42)
[2023-02-12] MEDS: MONTELUKAST 10 MG TAB PO SCH (08:43)
[2023-02-12] MEDS: ATORVASTATIN 10 MG TAB PO SCH (08:43)
[2023-02-12] MEDS: GABAPENTIN 400MG CAP PO SCH ×3 (08:43→21:00)
[2023-02-12] MEDS: LACTOBACILLUS ACIDOPHILUS CAP (BACID) PO SCH (08:43)
[2023-02-12] MEDS: PANTOPRAZOLE 40MG TAB (PROTONIX) PO SCH ×2 (08:44→21:00)
[2023-02-12] MEDS: PRIMIDONE 50MG TAB PO SCH ×2 (08:44→21:00)
[2023-02-12] MEDS: SODIUM CHLORIDE 0.9% INJ 10 ML SYR IV SCH (08:44)
[2023-02-12] MEDS: ENOXAPARIN 40MG/0.4ML SYRINGE (J1650 PER 10MG) SC SCH (08:45)
[2023-02-12] MEDS: DOCUSATE SODIUM 100MG CAPSULE PO SCH ×2 (08:45→21:00)
[2023-02-12] MEDS: SENNA 8.6 MG TAB (SENOKOT) PO SCH (08:46)
[2023-02-12] MEDS: MIRALAX *UNIT DOSE* 17GM PACKET PO SCH (08:46)
[2023-02-12] MEDS ORDERED: OMEPRAZOLE 20MG CAP PO SCH (09:00)
[2023-02-12] MEDS: IPRATROPIUM 0.5MG/ALBUTEROL 2.5MG INH SOL UD 3ML (DUONEB) NEB SCH ×2 (09:10→19:51)
[2023-02-12] MEDS ORDERED: guaiFENesin SYRUP 200MG 10ML UDC PO ONE (12:00)
[2023-02-12] MEDS: REMDESIVIR 100 MG in NS 250 ML IV SCH (12:10)
[2023-02-12 14:00] VITALS: BP 114/67; TEMP 99.3; O2SAT 96
[2023-02-12 19:52] VITALS: O2SAT 95
[2023-02-12 21:39] VITALS: BP 91/45; TEMP 97.8; O2SAT 97
[2023-02-13 06:03] VITALS: BP 110/68; TEMP 98.6; O2SAT 95
[2023-02-13] MEDS: BUDESONIDE 0.25 MG/2 ML INHALATION SUSPENSION INH SCH (06:15)
[2023-02-13] MEDS: IPRATROPIUM 0.5MG/ALBUTEROL 2.5MG INH SOL UD 3ML (DUONEB) NEB SCH (06:15)
[2023-02-13 06:27] LABS: BLOOD UREA NITROGEN 16 MG/DL (9-23); CALCIUM LEVEL 8.7 MG/DL (8.5-10.1); CARBON DIOXIDE LEVEL 30 MMOL/L (20-31); CHLORIDE LEVEL 102 MMOL/L (98-107); CREATININE FOR GFR 0.62 MG/DL (0.55-1.30); GLOMERULAR FILTRATION RATE > 60.0 (>51); GLUCOSE, FASTING 79 MG/DL (60-100); POTASSIUM SERUM 4.4 MMOL/L (3.5-5.1); SODIUM LEVEL 138 MMOL/L (136-145)
[2023-02-13] MEDS: INSULIN LISPRO (NovoLOG) PER UNIT SC SCH ×2 (07:30→13:18)
[2023-02-13] MEDS: GABAPENTIN 400MG CAP PO SCH (08:11)
[2023-02-13] MEDS: PRIMIDONE 50MG TAB PO SCH (08:11)
[2023-02-13] MEDS: ENOXAPARIN 40MG/0.4ML SYRINGE (J1650 PER 10MG) SC SCH (08:11)
[2023-02-13] MEDS: methocarbamoL 750 MG TAB PO SCH (08:11)
[2023-02-13] MEDS: ATORVASTATIN 10 MG TAB PO SCH (08:12)
[2023-02-13] MEDS: ASPIRIN 81MG ENTERIC TABLET PO SCH (08:12)
[2023-02-13] MEDS: PANTOPRAZOLE 40MG TAB (PROTONIX) PO SCH (08:13)
[2023-02-13] MEDS: LACTOBACILLUS ACIDOPHILUS CAP (BACID) PO SCH (08:13)
[2023-02-13] MEDS: MONTELUKAST 10 MG TAB PO SCH (08:13)
[2023-02-13] MEDS: SODIUM CHLORIDE 0.9% INJ 10 ML SYR IV SCH (08:14)
[2023-02-13] MEDS: DOCUSATE SODIUM 100MG CAPSULE PO SCH (08:15)
[2023-02-13] MEDS ORDERED: predniSONE 20 MG TAB PO SCH (09:00)
== END 2023-02-13 14:25 | disposition home health service (06) | DRG 137 ==
LOC: EDBD 11:29 → M ED 11:29 → M ED INP 18:21 → M MSPAV 20:42
PROVIDERS: ADMIT Internal Medicine Nephrology; ATTEND Student in an Organized Health Care Education/Training Program
PROC: 3E0333Z Introduction of Anti-inflammatory into Peripheral Vein, Percutaneous Approach (ICD-10-PCS; principal; 2023-02-06)
DX: U07.1 COVID-19 (principal); J96.11 Chronic respiratory failure with hypoxia; J18.9 Pneumonia, unspecified organism; E11.40 Type 2 diabetes mellitus with diabetic neuropathy, unspecified; Z99.81 Dependence on supplemental oxygen; G35 Multiple sclerosis; E66.01 Morbid (severe) obesity due to excess calories; J45.909 Unspecified asthma, uncomplicated; R09.02 Hypoxemia; I10 Essential (primary) hypertension; M79.7 Fibromyalgia; G43.909 Migraine, unspecified, not intractable, without status migrainosus; G47.33 Obstructive sleep apnea (adult) (pediatric); F41.9 Anxiety disorder, unspecified; E28.2 Polycystic ovarian syndrome; M54.50 Low back pain, unspecified; G89.29 Other chronic pain; K58.1 Irritable bowel syndrome with constipation; M51.16 Intervertebral disc disorders with radiculopathy, lumbar region; E55.9 Vitamin D deficiency, unspecified; K59.00 Constipation, unspecified; G25.0 Essential tremor; K21.9 Gastro-esophageal reflux disease without esophagitis; R91.1 Solitary pulmonary nodule; Z79.82 Long term (current) use of aspirin; Z79.84 Long term (current) use of oral hypoglycemic drugs; Z79.899 Other long term (current) drug therapy; Z88.5 Allergy status to narcotic agent; Z88.8 Allergy status to other drugs, medicaments and biological substances; Z90.49 Acquired absence of other specified parts of digestive tract; Z68.36 Body mass index [BMI] 36.0-36.9, adult

== ENCOUNTER 2023-03-01 12:00 | Emergency (ER) | payer OTHER ==
[~2023-03-01] VITALS: Ht 162.6 cm; Wt 97.7 kg
[~2023-03-01 12:00] MED LIST changes: +ASPI81TA26 PO; +LEVO1TAB40 PO
[2023-03-01 12:55] LABS: BASO % 0.8 % (0.0-1.0); EOS # 0.3 10^3/uL (0.0-0.5); EOS % 4.8 % (0.0-3.0); HEMATOCRIT 31.9 % (36.0-47.0); LYMPH # 1.3 10^3/uL (1.5-5.0); MEAN CORPUSCULAR HEMOGLOBIN 28.2 pg (27.0-33.0); MEAN CORPUSCULAR HGB CONC 31.3 g/dl (32.0-36.5); MEAN CORPUSCULAR VOLUME 89.9 fl (80.0-96.0); MONO # 0.7 10^3/uL (0.0-0.8); MONO % 12.8 % (2.0-8.0); NEUTROPHILS % 57.2 % (36.0-66.0); PLATELET COUNT, AUTOMATED 229 10^3/uL (150-450); RED BLOOD COUNT 3.55 10^6/uL (4.00-5.40); WHITE BLOOD COUNT 5.3 10^3/uL (4.0-10.0)
[2023-03-01 13:21] LABS: ALKALINE PHOSPHATASE 144 U/L (46-116); ALT/SGPT 15 U/L (7.0-40); AST/SGOT 11 U/L (<34); BILIRUBIN,DIRECT < 0.1 MG/DL (<0.4); BILIRUBIN,TOTAL 0.2 MG/DL (0.3-1.2); BLOOD UREA NITROGEN 7 MG/DL (9-23); CALCIUM LEVEL 9.1 MG/DL (8.5-10.1); CARBON DIOXIDE LEVEL 30 MMOL/L (20-31); CHLORIDE LEVEL 105 MMOL/L (98-107); CK-MB VALUE MASS < 1.0 NG/ML (<3.6); CPK CREATINE PHOSPHOKINASE 16 U/L (34-145); CREATININE FOR GFR 0.55 MG/DL (0.55-1.30); GLOMERULAR FILTRATION RATE > 60.0 (>51); GLUCOSE, FASTING 86 MG/DL (60-100); MB/CK RELATIVE INDEX 6.25 (< OR =4); POTASSIUM SERUM 4.2 MMOL/L (3.5-5.1); SODIUM LEVEL 141 MMOL/L (136-145); TOTAL PROTEIN 5.5 G/DL (5.7-8.2)
[2023-03-01 13:25] LABS: THYROID STIMULATING HORMONE 1.532 uIU/ML (0.55-4.78); THYROXINE (T4) 8.6 UG/DL (4.5-10.9)
[2023-03-01] MEDS ORDERED: ISOVUE-370 76% 100ML VIAL As Ordered ONE (13:57)
[2023-03-01 14:23] LABS: CK-MB VALUE MASS < 1.0 NG/ML (<3.6)
[2023-03-01] MEDS ORDERED: LIDOCAINE 5% (LIDODERM) PATCH TD ONE (15:15)
[2023-03-01 15:28] VITALS: O2SAT 99
[2023-03-01 15:29] LABS: CPK CREATINE PHOSPHOKINASE 34 U/L (34-145); MB/CK RELATIVE INDEX 2.94 (< OR =4)
[2023-03-01 15:40] LABS: PROCALCITONIN <0.04 ng/ml
[2023-03-01 15:56] VITALS: BP 120/70; O2SAT 97
[2023-03-01] MEDS ORDERED: LIDO5DIS41 TOP (16:01)
[2023-03-01 16:11] VITALS: TEMP 99.1
== END 2023-03-01 16:11 | disposition home or self-care (01) ==
LOC: M ED 12:00
DX: R06.00 Dyspnea, unspecified (principal); R07.81 Pleurodynia; E11.9 Type 2 diabetes mellitus without complications; I10 Essential (primary) hypertension; J45.909 Unspecified asthma, uncomplicated; J44.9 Chronic obstructive pulmonary disease, unspecified; G35 Multiple sclerosis; Z88.5 Allergy status to narcotic agent; Z88.8 Allergy status to other drugs, medicaments and biological substances; Z79.82 Long term (current) use of aspirin; Z79.891 Long term (current) use of opiate analgesic; Z79.4 Long term (current) use of insulin; Z79.899 Other long term (current) drug therapy
CPT/HCPCS: 36415; 71045; 71275; 80048; 80076; 82550; 82553; 83605; 83880; 84145; 84436; 84443; 85025; 87040; 87486; 87581; 87633; 87798; 93005; 93041; 94760; 99285; Q9967

== ENCOUNTER 2023-03-29 13:37 | Emergency (ER) | payer OTHER ==
[~2023-03-29] VITALS: Ht 162.6 cm; Wt 101.3 kg
[~2023-03-29 13:37] MED LIST changes: +LIDO5DIS41 TOP
[2023-03-29] MEDS ORDERED: LEVO1TAB40 (13:55)
[2023-03-29] MEDS ORDERED: methylPREDNISolone 125MG 2ML VIAL IV ONE (14:50)
[2023-03-29] MEDS ORDERED: ACETAMINOPHEN 325 MG TAB PO ONE (14:50)
[2023-03-29] MEDS ORDERED: SODIUM CHLORIDE 0.9% INJ 10 ML SYR IV PRN (15:55)
[2023-03-29 15:57] LABS: VENOUS BASE EXCESS 0.6 (-2.0-2.0); VENOUS HCO3 26.7 MMOL/L (23.0-27.0); VENOUS O2 SATURATION 86.7 % (60.0-80.0); VENOUS PARTIAL PRESSURE CO2 49.3 mmHg (38.0-50.0); VENOUS PARTIAL PRESSURE O2 53.9 mmHg (30.0-50.0); VENOUS PH 7.351 UNITS (7.330-7.430); VENOUS STANDARD HCO3 24.8 MMOL/L; VENOUS TOTAL CO2 28.2 MMOL/L (24.0-28.0)
[2023-03-29 16:01] LABS: BASO # 0.1 10^3/uL (0.0-0.2); BASO % 1.4 % (0.0-1.0); EOS # 0.6 10^3/uL (0.0-0.5); EOS % 8.6 % (0.0-3.0); HEMATOCRIT 33.7 % (36.0-47.0); HEMOGLOBIN 10.6 g/dl (12.0-15.5); LYMPH # 1.4 10^3/uL (1.5-5.0); LYMPH % 20.5 % (24.0-44.0); MEAN CORPUSCULAR HEMOGLOBIN 27.7 pg (27.0-33.0); MEAN CORPUSCULAR HGB CONC 31.5 g/dl (32.0-36.5); MONO # 0.7 10^3/uL (0.0-0.8); MONO % 10.5 % (2.0-8.0); NEUTROPHILS # 4.1 10^3/uL (1.5-8.5); NEUTROPHILS % 58.7 % (36.0-66.0); PLATELET COUNT, AUTOMATED 312 10^3/uL (150-450); RED BLOOD COUNT 3.83 10^6/uL (4.00-5.40)
[2023-03-29] MEDS: IPRATROPIUM 0.5MG/ALBUTEROL 2.5MG INH SOL UD 3ML (DUONEB) NEB PRN ×2 (16:10→16:26)
[2023-03-29 16:37] LABS: ALBUMIN 3.4 G/DL (3.2-5.2); ALKALINE PHOSPHATASE 131 U/L (46-116); ALT/SGPT 12 U/L (7.0-40); AST/SGOT 8 U/L (<34); BILIRUBIN,DIRECT < 0.1 MG/DL (<0.4); BILIRUBIN,TOTAL 0.2 MG/DL (0.3-1.2); BLOOD UREA NITROGEN 7 MG/DL (9-23); CALCIUM LEVEL 9.3 MG/DL (8.5-10.1); CARBON DIOXIDE LEVEL 29 MMOL/L (20-31); CHLORIDE LEVEL 106 MMOL/L (98-107); CK-MB VALUE MASS < 1.0 NG/ML (<3.6); CPK CREATINE PHOSPHOKINASE 29 U/L (34-145); CREATININE FOR GFR 0.61 MG/DL (0.55-1.30); GLOMERULAR FILTRATION RATE > 60.0 (>51); GLUCOSE, FASTING 83 MG/DL (60-100); MB/CK RELATIVE INDEX 3.44 (< OR =4); POTASSIUM SERUM 3.9 MMOL/L (3.5-5.1); SODIUM LEVEL 140 MMOL/L (136-145); TOTAL PROTEIN 6.2 G/DL (5.7-8.2)
[2023-03-29 18:00] VITALS: TEMP 98.7
[2023-03-29 19:44] VITALS: BP 141/77; O2SAT 97
== END 2023-03-29 19:46 | disposition home or self-care (01) ==
LOC: M ED 13:37
DX: J18.9 Pneumonia, unspecified organism (principal); R06.02 Shortness of breath; R94.31 Abnormal electrocardiogram [ECG] [EKG]; I10 Essential (primary) hypertension; Z88.1 Allergy status to other antibiotic agents; Z88.8 Allergy status to other drugs, medicaments and biological substances; Z79.84 Long term (current) use of oral hypoglycemic drugs; Z79.899 Other long term (current) drug therapy; Z79.1 Long term (current) use of non-steroidal anti-inflammatories (NSAID)
CPT/HCPCS: 71045; 80048; 80076; 82550; 82553; 82803; 83605; 83880; 85025; 87040; 87486; 87581; 87633; 87798; 93005; 93041; 94640; 94760; 96374; 96375; 99285; J2930

== ENCOUNTER 2023-05-11 08:23 | Outpatient (CLI) | payer OTHER ==
[~2023-05-11] VITALS: Ht 162.6 cm; Wt 115.0 kg
[~2023-05-11 08:23] MED LIST changes: +LEVO1TAB40
[2023-05-11 08:50] VITALS: O2SAT 96
[2023-05-11] MEDS: ACETAMINOPHEN TAB 650MG DOSE (2X325MG) PO ONE (09:02)
[2023-05-11] MEDS: diphenhydrAMINE 25MG CAP PO ONE (09:02)
[2023-05-11] MEDS: methylPREDNISolone 125MG 2ML VIAL IV ONE (09:02)
[2023-05-11] MEDS: OCRELIZUMAB 600 MG in NS 500 ML IV ONE (09:21)
[2023-05-11 10:00] VITALS: BP 148/80; O2SAT 98
[2023-05-11 10:30] VITALS: BP 134/78; O2SAT 97
[2023-05-11 11:00] VITALS: BP 143/75; O2SAT 98
[2023-05-11 11:30] VITALS: BP 156/88; O2SAT 96
[2023-05-11] MEDS: SODIUM CHLORIDE 0.9% INJ 10 ML SYR IV PRN (13:30)
[2023-05-11 13:38] VITALS: BP 167/81; O2SAT 97
== END 2023-05-11 13:40 | disposition home or self-care (01) ==
LOC: M INFU 08:23
PROVIDERS: ATTEND Psychiatry & Neurology Neurology
DX: G35 Multiple sclerosis (principal); Z88.1 Allergy status to other antibiotic agents; Z88.5 Allergy status to narcotic agent; Z88.8 Allergy status to other drugs, medicaments and biological substances
CPT/HCPCS: 96365; 96366; 96375; J2350; J2930

== ENCOUNTER → 2023-06-07 | Outpatient (CLI) | payer OTHER ==
[~2023-06-07] MED LIST changes: +GASTROGRAFIN SOLUTION 30ML As Ordered ONE; +ISOVUE-370 76% 100ML VIAL As Ordered ONE
== END ==
LOC: M RAD 10:57
PROVIDERS: ATTEND Family Medicine
DX: E16.2 Hypoglycemia, unspecified (principal)
CPT/HCPCS: 74178; Q9963; Q9967

== ENCOUNTER → 2023-06-15 | Outpatient (CLI) | payer OTHER ==
[~2023-06-15] MED LIST changes: -GASTROGRAFIN SOLUTION 30ML As Ordered ONE; -ISOVUE-370 76% 100ML VIAL As Ordered ONE
== END ==
LOC: M PLAIMG 10:28
PROVIDERS: ATTEND Internal Medicine Pulmonary Disease
DX: R91.8 Other nonspecific abnormal finding of lung field (principal)

== ENCOUNTER 2023-11-11 08:40 | Outpatient (CLI) | payer OTHER ==
[~2023-11-11] VITALS: Ht 162.6 cm; Wt 107.0 kg
[~2023-11-11 08:40] MED LIST changes: +GABA-1635 PO; -GABA800T4 PO
[2023-11-11 09:15] VITALS: BP 140/82; O2SAT 97
[2023-11-11] MEDS: diphenhydrAMINE 25MG CAP PO ONE (09:30)
[2023-11-11] MEDS: ACETAMINOPHEN TAB 650MG DOSE (2X325MG) PO ONE (09:30)
[2023-11-11] MEDS: methylPREDNISolone 125MG 2ML VIAL IV ONE (09:31)
[2023-11-11] MEDS: OCRELIZUMAB 600 MG in NS 500 ML IV ONE (09:46)
[2023-11-11 10:15] VITALS: BP 153/82; O2SAT 98
[2023-11-11 10:45] VITALS: BP 163/100; O2SAT 98
[2023-11-11 11:15] VITALS: BP 142/79; O2SAT 98
[2023-11-11] MEDS: SODIUM CHLORIDE 0.9% INJ 10 ML SYR IV PRN (13:42)
[2023-11-11 13:43] VITALS: BP 134/69; O2SAT 96
== END 2023-11-11 13:45 ==
LOC: M INFU 08:40
PROVIDERS: ATTEND Psychiatry & Neurology Neurology
DX: G35 Multiple sclerosis (principal); Z88.1 Allergy status to other antibiotic agents; Z88.5 Allergy status to narcotic agent; Z88.8 Allergy status to other drugs, medicaments and biological substances
CPT/HCPCS: 96365; 96366; J1642; J2350; J2919

== ENCOUNTER 2023-12-15 11:18 | Emergency (ER) | payer OTHER ==
[~2023-12-15] VITALS: Ht 162.6 cm; Wt 104.7 kg
[~2023-12-15 11:18] MED LIST changes: +GABA-1172 PO; -GABA-282 PO
[2023-12-15 13:50] LABS: BASO % 0.1 % (0.0-1.0); HEMATOCRIT 40.7 % (36.0-47.0); HEMOGLOBIN 13.2 g/dl (12.0-15.5); LYMPH # 0.7 10^3/uL (1.5-5.0); LYMPH % 8.7 % (24.0-44.0); MEAN CORPUSCULAR HEMOGLOBIN 29.8 pg (27.0-33.0); MEAN CORPUSCULAR HGB CONC 32.4 g/dl (32.0-36.5); MEAN CORPUSCULAR VOLUME 91.9 fl (80.0-96.0); MONO # 0.4 10^3/uL (0.0-0.8); MONO % 4.9 % (2.0-8.0); NEUTROPHILS # 6.7 10^3/uL (1.5-8.5); PLATELET COUNT, AUTOMATED 259 10^3/uL (150-450); RED BLOOD COUNT 4.43 10^6/uL (4.00-5.40); WHITE BLOOD COUNT 7.8 10^3/uL (4.0-10.0)
[2023-12-15 14:06] LABS: INR 1.02; PARTIAL THROMBOPLASTIN TIME 22.7 SECONDS (24.8-34.2); PROTHROMBIN TIME 13.1 SECONDS (12.5-14.5)
[2023-12-15 14:12] LABS: CK-MB VALUE MASS < 1.0 NG/ML (<3.6)
[2023-12-15 14:14] LABS: LIPASE 40 U/L (12-53)
[2023-12-15 14:15] LABS: THYROID STIMULATING HORMONE 0.433 uIU/ML (0.55-4.78)
[2023-12-15 14:16] LABS: ALKALINE PHOSPHATASE 137 U/L (46-116); ALT/SGPT 28 U/L (7.0-40); AST/SGOT < 8 U/L (<34); BILIRUBIN,DIRECT < 0.1 MG/DL (<0.4); BILIRUBIN,TOTAL 0.2 MG/DL (0.3-1.2); BLOOD UREA NITROGEN 15 MG/DL (9-23); CALCIUM LEVEL 10.2 MG/DL (8.5-10.1); CARBON DIOXIDE LEVEL 23 MMOL/L (20-31); CHLORIDE LEVEL 107 MMOL/L (98-107); CPK CREATINE PHOSPHOKINASE 68 U/L (34-145); CREATININE FOR GFR 0.64 MG/DL (0.55-1.30); GLOMERULAR FILTRATION RATE > 60.0 (>51); GLUCOSE, FASTING 130 MG/DL (60-100); MB/CK RELATIVE INDEX 1.47 (< OR =4); SODIUM LEVEL 139 MMOL/L (136-145); TOTAL PROTEIN 6.8 G/DL (5.7-8.2)
[2023-12-15 14:17] LABS: FREE T4 1.06 NG/DL (0.89-1.76)
[2023-12-15 14:48] LABS: CK-MB VALUE MASS < 1.0 NG/ML (<3.6); CPK CREATINE PHOSPHOKINASE 69 U/L (34-145); MB/CK RELATIVE INDEX 1.44 (< OR =4)
[2023-12-15] MEDS ORDERED: ISOVUE-370 76% 100ML VIAL As Ordered ONE (15:24)
[2023-12-15 17:24] VITALS: BP 138/65; TEMP 96.3; O2SAT 99
== END 2023-12-15 17:28 | disposition home or self-care (01) ==
LOC: M ED 11:18
DX: R05.9 Cough, unspecified (principal); B34.9 Viral infection, unspecified; I25.2 Old myocardial infarction; E11.9 Type 2 diabetes mellitus without complications; E78.5 Hyperlipidemia, unspecified; I10 Essential (primary) hypertension; K21.9 Gastro-esophageal reflux disease without esophagitis; E28.2 Polycystic ovarian syndrome; G35 Multiple sclerosis; K58.9 Irritable bowel syndrome, unspecified; Z88.1 Allergy status to other antibiotic agents; Z88.5 Allergy status to narcotic agent; Z88.8 Allergy status to other drugs, medicaments and biological substances; Z79.1 Long term (current) use of non-steroidal anti-inflammatories (NSAID); Z79.84 Long term (current) use of oral hypoglycemic drugs; Z79.899 Other long term (current) drug therapy
CPT/HCPCS: 36415; 71046; 71275; 80048; 80076; 82550; 82553; 83690; 84439; 84443; 84484; 85025; 85610; 85730; 87040; 87486; 87581; 87633; 87798; 93005; 99284; Q9967

== ENCOUNTER 2024-01-22 13:33 | Emergency (ER) | payer OTHER ==
[~2024-01-22] VITALS: Ht 162.6 cm; Wt 108.7 kg
[2024-01-22] MEDS: methylPREDNISolone 125MG 2ML VIAL IV ONE (18:54)
[2024-01-22 19:11] VITALS: BP 153/80; TEMP 97.8; O2SAT 98
== END 2024-01-22 19:15 | disposition home or self-care (01) ==
LOC: M ED 13:33
DX: G35 Multiple sclerosis (principal); Z88.1 Allergy status to other antibiotic agents; Z88.5 Allergy status to narcotic agent; Z79.1 Long term (current) use of non-steroidal anti-inflammatories (NSAID); Z79.84 Long term (current) use of oral hypoglycemic drugs; Z79.899 Other long term (current) drug therapy
CPT/HCPCS: 96374; 99284; J2919

== ENCOUNTER 2024-05-10 08:33 | Outpatient (CLI) | payer OTHER ==
[~2024-05-10] VITALS: Ht 162.6 cm; Wt 111.8 kg
[2024-05-10] VITALS (7 sets, daily range): BP systolic 113–134; BP diastolic 61–88; O2SAT 96–98
[2024-05-10] MEDS: diphenhydrAMINE 25MG CAP PO ONE (09:28)
[2024-05-10] MEDS: methylPREDNISolone 125MG 2ML VIAL IV ONE (09:28)
[2024-05-10] MEDS: ACETAMINOPHEN 325 MG TAB PO ONE (09:28)
[2024-05-10] MEDS: OCRELIZUMAB 600 MG in NS 500 ML IV ONE (10:06)
== END 2024-05-10 13:55 ==
LOC: M INFU 08:33
PROVIDERS: ATTEND Psychiatry & Neurology Neurology
DX: G35 Multiple sclerosis (principal); Z88.1 Allergy status to other antibiotic agents; Z88.5 Allergy status to narcotic agent; Z88.8 Allergy status to other drugs, medicaments and biological substances
CPT/HCPCS: 96365; 96366; 96375; J2350; J2919

== ENCOUNTER 2024-11-13 09:15 | Outpatient (CLI) | payer OTHER ==
[2024-11-13] VITALS (8 sets, daily range): BP systolic 119–143; BP diastolic 61–85; TEMP 36.4; O2SAT 96–100
[~2024-11-13] VITALS: Ht 162.6 cm; Wt 109.0 kg
[~2024-11-13 09:15] MED LIST changes: +LIDO1ADH93 TOP; -LIDO5DIS41 TOP; -VERA120C3 PO; +VERA120C9 PO
[2024-11-13] MEDS: ACETAMINOPHEN 325 MG TAB PO ONE (09:28)
[2024-11-13] MEDS: OCRELIZUMAB 600 MG in NS 500 ML IV ONE (10:17)
[2024-11-13] MEDS: SODIUM CHLORIDE 0.9% INJ 10 ML SYR IV PRN (14:17)
[2024-11-13] MEDS: HEPARIN LOCK FLUSH 100 UNITS/ML 3 ML SYRINGE IV PRN (14:17)
== END 2024-11-13 14:25 | disposition home or self-care (01) ==
LOC: M INFU 09:15
PROVIDERS: ATTEND Psychiatry & Neurology Neurology
DX: G35 Multiple sclerosis (principal); Z88.1 Allergy status to other antibiotic agents; Z88.5 Allergy status to narcotic agent; Z88.8 Allergy status to other drugs, medicaments and biological substances
CPT/HCPCS: 96365; 96366; 96375; J1642; J2350; J2919